=== PATIENT | female | born 1945 | race Caucasian/White ===

== ENCOUNTER 2017-05-27 11:03 | Emergency (ER) | payer MEDICARE ==
[~2017-05-27] VITALS: Ht 152.4 cm; Wt 50.0 kg
[2017-05-27 11:04] VITALS: BP 155/70; PULSE 100; RESP 20; TEMP 99.9; O2SAT 95
[2017-05-27] MEDS ORDERED: PRED10PA2 PO (11:32)
[2017-05-27] MEDS ORDERED: CYCL1TAB29 PO (11:32)
--- NOTE | 2017-05-27 11:33 | PD ---
HPI . Back pain Chief Complaint: Back/ Neck Pain or Injury Time Seen by Provider: 11:12 Travel History International Travel<30 days: No Contact w/Intl Traveler<30days: No Traveled to known affect area: No History of Present Illness HPI This patient presents ambulatory with a chief complaint of low back pain. Onset was a week ago. She states that it radiates to bilateral lower extremities. The pain is constant and is exacerbated by certain movements and by lying flat. She states that she has not taken anything for it prior to presentation. She states that she has a history of spinal stenosis and degenerative disc disease. She further states that she has chronic renal insufficiency. Current pain level is 9/10. PFSH Social History Tobacco Use: No Allergies-Medications (Allergen,Severity, Reaction): Coded Allergies: No Known Allergies (Unverified , 05/27/17) Review of Systems Except as stated in HPI: all other systems reviewed are Neg Musculoskeletal: Positive: Limited ROM, Pain Neurologic: No: Weakness, Focal Abnormalities, Paresthesia, Incontinence, Sensory Disturbance Physical Exam Narrative GENERAL: Patient is awake and alert and in no acute distress. SKIN: Warm and dry with no rashes noted. HEAD: Normocephalic/atraumatic. EYES: Pupils equal. Extraocular movements are intact. NECK: Supple with full range of motion. RESPIRATORY: Respirations are nonlabored. GI: Abdomen is soft with no pulsatile abdominal masses. MUSCULOSKELETAL: Unable to elicit any tenderness to percussion of the lumbar spine, SI joints, groins, greater trochanters. Straight leg raise and leg rolling are negative. NEUROLOGICAL: Patient ambulates with no difficulty. No focal abnormalities noted. PSYCHIATRIC: Appropriate mood and affect. Data Data Last Documented VS Vital Signs Date Time Temp Pulse Resp B/P (MAP) Pulse Ox O2 Delivery O2 Flow Rate FiO2 05/27/17 11:04 99.9 100 20 155/70 (98) 95 Room Air MDM Medical Decision Making Medical Screen Exam Complete: Yes Emergency Medical Condition: Yes Differential Diagnosis Differential diagnosis includes but is not limited to muscular low back pain, DDD, spinal stenosis, epidural abscess, sciatica, kidney infection or stone. Narrative Course This patient presents for treatment of back pain. She has no neurological signs or symptoms. She has no point tenderness. She has no fever. She will be discharged with a prescription for prednisone and Flexeril. Diagnosis Primary Impression: Low back pain Qualified Codes: M54.42 - Lumbago with sciatica, left side; M54.41 - Lumbago with sciatica, right side Patient Instructions: Acute Low Back Pain (DC), General Instructions Med/Other Pt SpecificInfo: Prescription(s) given Scripts Cyclobenzaprine (Flexeril) 10 Mg Tab 10 MG PO TID for Muscle Spasm, #30 TAB 0 Refills Prov: Karlee Cuevas MD 05/27/17 Prednisone (48) 10 mg tab Dose Pack (Prednisone (48) 10 mg tab Dose Pack) 10 Mg Dspk 10 MG PO DIRECTED for Inflammation, #1 DSPK 0 Refills Prov: Karlee Cuevas MD 05/27/17 Disposition: 01 DISCHARGE HOME Condition: Stable Karlee Cuevas MD May 27, 2017 11:33
[2017-05-27] MEDS ORDERED: CARI350T25 (11:43)
[2017-05-27] MEDS ORDERED: SERT25TA83 PO (11:44)
[2017-05-27] MEDS ORDERED: LORA2TAB7 PO (11:44)
[2017-05-27] MEDS ORDERED: TRAM50TA PO (11:47)
[2017-05-27] MEDS ORDERED: ESTRTAB12 (11:47)
[2017-05-27] MEDS ORDERED: FISHCAP4 PO (11:47)
== END 2017-05-27 11:59 | disposition home or self-care (01) ==
LOC: NEPD 11:03
DX: M54.41 Lumbago with sciatica, right side (principal); M54.42 Lumbago with sciatica, left side
CPT/HCPCS: 99284

== ENCOUNTER 2017-06-12 09:29 | Observation (INO) | payer MEDICARE ==
[~2017-06-12] VITALS: Ht 152.4 cm; Wt 52.2 kg
[2017-06-12] VITALS (9 sets, daily range): BP systolic 113–176; BP diastolic 32–81; PULSE 80–94; RESP 17–20; TEMP 98.7–100.6; O2SAT 95–100
[~2017-06-12 09:29] MED LIST: CARI350T25; CYCL1TAB29 PO; ESTRTAB12; FISHCAP4 PO; LORA2TAB7 PO; PRED10PA2 PO; SERT25TA83 PO; TRAM50TA PO
[2017-06-12] MEDS ORDERED: TH BTAB PO (09:47)
[2017-06-12] MEDS ORDERED: SOMA250T PO (09:47)
[2017-06-12 11:10] LABS: AUTOMATED NEUTROPHIL # 14.9 TH/MM3 (1.8-7.7); BASOPHIL % 0.2 % (0.0-2.0); HEMATOCRIT 32.9 % (35.0-46.0); HEMO FLAGS DIFF FINAL; LYMPH % 2.3 % (9.0-44.0); LYMPHOCYTE # 0.4 TH/MM3 (1.0-4.8); MEAN CELL VOLUME 92.8 FL (80.0-100.0); MEAN CORPUSCULAR HEMOGLOBIN 30.7 PG (27.0-34.0); MEAN CORPUSCULAR HGB CONC 33.1 % (32.0-36.0); MONO % 6.7 % (0.0-8.0); NEUT % 90.8 % (16.0-70.0); PLATELET COUNT 201 TH/MM3 (150-450); RED BLOOD COUNT 3.54 MIL/MM3 (4.00-5.30); RED CELL DISTRIBUTION WIDTH 13.5 % (11.6-17.2); WHITE BLOOD COUNT 16.4 TH/MM3 (4.0-11.0)
--- NOTE | 2017-06-12 11:11 | PD ---
HPI Chief Complaint: Pain: Acute or Chronic Time Seen by Provider: 09:38 Travel History International Travel<30 days: No Contact w/Intl Traveler<30days: No Traveled to known affect area: No History of Present Illness HPI This 71-year-old woman presents emergency department complaining of aches all over in her joints, and a painful red swollen left wrist. She states she hasn' t felt well for about a week or so. She complains of diffuse body aches. She had some subjective fevers and chills as well. She had unusual episode last night of some burning epigastric pain this resolved. Starting yesterday and today she also worsening pain in her left wrist with erythema redness swelling and pain with range of motion. She is a history of rheumatoid arthritis for which she takes tramadol. Chest is chronic kidney disease and high cholesterol. No diabetes. No history of previous joint swelling like she has in her left wrist. History Past Medical History Narrative Medical Stage III chronic kidney disease Hyperlipidemia Rheumatoid arthritis Tetanus Vaccination: < 5 Years Influenza Vaccination: No Menopausal: Yes Social History Alcohol Use: No Tobacco Use: No Allergies-Medications (Allergen,Severity, Reaction): Coded Allergies: No Known Allergies (Unverified , 06/12/17) Reported Meds & Prescriptions Reported Meds & Active Scripts Active Prednisone (48) 10 mg tab Dose Pack (Prednisone) 10 Mg Dspk 10 Mg PO DIRECTED Reported Soma (Carisoprodol) 250 Mg Tab 250 Mg PO QID PRN Vitamin B Complex Tablet (Vit B Comp/C/FA/Iron/Vit E) 500-400-18 Tablet 1 Tab PO DAILY Fish Oil + D3 (Fish Oil-Cholecalciferol) 1,200-1,000 Mg-Unit Cap 1 Cap PO DAILY Estroven + Energy Maximum (Lumicity Natural Products) 400 Mcg Tab Tramadol (Tramadol HCl) 50 Mg Tab 50 Mg PO Q6H PRN Lorazepam 2 Mg Tab 2 Mg PO DAILY PRN Sertraline (Sertraline HCl) 25 Mg Tab 25 Mg PO DAILY Review of Systems Except as stated in HPI: all other systems reviewed are Neg Physical Exam Narrative GENERAL: Well-appearing 71-year-old woman, no acute distress. SKIN: Focused skin assessment warm/dry she appears pale.. HEAD: Atraumatic. Normocephalic. EYES: Pupils equal and round. No scleral icterus. No injection or drainage. ENT: No nasal bleeding or discharge. Mucous membranes pink and moist. NECK: Trachea midline. No JVD. CARDIOVASCULAR: Regular rate and rhythm. No murmur appreciated. RESPIRATORY: No accessory muscle use. Clear to auscultation. Breath sounds equal bilaterally. GASTROINTESTINAL: Abdomen soft, non-tender, nondistended. Hepatic and splenic margins not palpable. MUSCULOSKELETAL: No obvious deformities. She has this diffuse swelling of multiple joints in her hands. She has erythema redness and focal swelling of her left wrist with increased pain of range of motion. NEUROLOGICAL: Awake and alert. No obvious cranial nerve deficits. Motor grossly within normal limits. Normal speech. PSYCHIATRIC: Appropriate mood and affect; insight and judgment normal. Data Data Last Documented VS Vital Signs Date Time Temp Pulse Resp B/P (MAP) Pulse Ox O2 Delivery O2 Flow Rate FiO2 06/12/17 15:57 91 20 158/72 (100) 97 Room Air 06/12/17 09:31 99.1 Orders Orders Complete Blood Count With Diff (06/12/17 10:39) Comprehensive Metabolic Panel (06/12/17 10:39) Westergren Sedimentation Rate (06/12/17 10:39) C-Reactive Protein (Crp) (06/12/17 10:39) Iv Access Insert/Monitor (06/12/17 10:39) Lactic Acid Sepsis Protocol (06/12/17 10:39) Blood Culture (06/12/17 10:39) Wrist, Complete ([id number]) (06/12/17 ) Chest, Single Ap (06/12/17 ) Urinalysis - C+S If Indicated (06/12/17 10:39) Aspiration, Wrist (06/12/17 ) Fluid Culture And Gram Stain (06/12/17 13:22) Synovial Fl Cell Count + Diff (06/12/17 13:22) Synovial Fluid Crystals (06/12/17 13:22) Synovial Fluid Glucose (06/12/17 13:22) Synovial Fluid Total Protein (06/12/17 13:22) Us Guided Needle Placement (06/12/17 ) Comprehensive Metabolic Panel (06/13/17 06:00) Free Thyroxine (T4) (06/13/17 06:00) Hemoglobin (Hgb) A1c (06/13/17 06:00) Magnesium (Mg) (06/13/17 06:00) Phosphorus (Po4) (06/13/17 06:00) Thyroid Stimulating Hormone (06/13/17 06:00) Complete Blood Count With Diff (06/13/17 06:00) Blood Culture (06/12/17 17:08) Place In Observation (06/12/17 ) Code Status (06/12/17 17:09) Vital Signs (Adult) Q4H (06/12/17 17:09) Neuro Checks Q4H (06/12/17 17:09) Activity Oob Ad Ofelia (06/12/17 17:09) Special Client Bus Driver / Telemetry .CONTINUOUS (06/12/17 17:09) Intake + Output WILIAN.QSHIFT (06/12/17 17:09) Diet Heart Healthy (06/12/17 Dinner) Diet Renal (06/12/17 Dinner) Sodium Chlor 0.9% 1000 Ml Inj (Ns 1000 M (06/12/17 17:09) Sodium Chloride 0.9% Flush (Ns Flush) (06/12/17 17:15) Sodium Chloride 0.9% Flush (Ns Flush) (06/12/17 21:00) Acetaminophen (Tylenol) (06/12/17 17:15) Ondansetron Inj (Zofran Inj) (06/12/17 17:15) Prochlorperazine Supp (Compazine Supp) (06/12/17 17:15) Urinalysis - C+S If Indicated (06/12/17 17:09) Resp Oxygen Nino C Titrat 1-4 L (06/12/17 ) Pt Request For Service (06/12/17 17:09) Ot Request For Service (06/12/17 17:09) Case Management Consult (06/12/17 17:09) Zolpidem (Ambien) (06/12/17 17:15) Heparin Inj (Heparin Inj) (06/12/17 17:15) Scd Bilateral/Knee High WILIAN.BID (06/12/17 17:09) Joseph Bilateral/Knee High WILIAN.QSHIFT (06/12/17 17:15) Acetaminophen (Tylenol) (06/12/17 17:15) Oxycodone-Acetamin 5-325 Mg (Percocet (06/12/17 17:15) Oxycodone-Acetamin 10-325 Mg (Percocet 1 (06/12/17 17:15) Morphine Inj (Morphine Inj) (06/12/17 17:15) Morphine Inj (Morphine Inj) (06/12/17 17:15) Morphine Inj (Morphine Inj) (06/12/17 17:15) Morphine Inj (Morphine Inj) (06/12/17 17:15) Naloxone Inj (Narcan Inj) (06/12/17 17:15) Docusate Sodium-Senna (Sydnee-Colace) (06/12/17 21:00) Magnesium Hydroxide Liq (Milk Of Magnesi (06/12/17 17:15) Sennosides (Senokot) (06/12/17 17:15) Bisacodyl Supp (Dulcolax Supp) (06/12/17 17:15) Lactulose Liq (Lactulose Liq) (06/12/17 17:15) Piperacil-Tazo 4.5 Gm Premix (Zosyn 4.5 (06/12/17 17:15) Vancomycin Consult Pharmacy (Vancomycin (06/12/17 17:15) Vancomycin Inj (Vancomycin Inj) (06/12/17 17:15) Lorazepam (Ativan) (06/12/17 17:15) Tramadol (Ultram) (06/12/17 17:15) (Nf) Fish Oil-Cholecalciferol (Fish Oil (06/13/17 09:00) (Nf) Sertraline (06/13/17 09:00) (Nf) Vit B Comp/C/Fa/Iron/Vit E (Vitamin (06/13/17 09:00) Methocarbamol (Robaxin) (06/12/17 17:30) Admit Order (Ed Use Only) (06/12/17 ) Labs Laboratory Tests Test 06/12/17 10:50 06/12/17 15:15 White Blood Count 16.4 TH/MM3 Red Blood Count 3.54 MIL/MM3 Hemoglobin 10.9 GM/DL Hematocrit 32.9 % Mean Corpuscular Volume 92.8 FL Mean Corpuscular Hemoglobin 30.7 PG Mean Corpuscular Hemoglobin Concent 33.1 % Red Cell Distribution Width 13.5 % Platelet Count 201 TH/MM3 Mean Platelet Volume 6.7 FL Neutrophils (%) (Auto) 90.8 % Lymphocytes (%) (Auto) 2.3 % Monocytes (%) (Auto) 6.7 % Eosinophils (%) (Auto) 0.0 % Basophils (%) (Auto) 0.2 % Neutrophils # (Auto) 14.9 TH/MM3 Lymphocytes # (Auto) 0.4 TH/MM3 Monocytes # (Auto) 1.1 TH/MM3 Eosinophils # (Auto) 0.0 TH/MM3 Basophils # (Auto) 0.0 TH/MM3 CBC Comment DIFF FINAL Differential Comment Erythrocyte Sedimentation Rate 66 mm/hr Blood Urea Nitrogen 21 MG/DL Creatinine 1.50 MG/DL Random Glucose 119 MG/DL Total Protein 6.9 GM/DL Albumin 3.0 GM/DL Calcium Level 8.6 MG/DL Alkaline Phosphatase 57 U/L Aspartate Amino Transf (AST/SGOT) 12 U/L Alanine Aminotransferase (ALT/SGPT) 24 U/L Total Bilirubin 0.9 MG/DL Sodium Level 131 MEQ/L Potassium Level 4.1 MEQ/L Chloride Level 99 MEQ/L Carbon Dioxide Level 25.3 MEQ/L Anion Gap 7 MEQ/L Estimat Glomerular Filtration Rate 34 ML/MIN Lactic Acid Level 1.1 mmol/L C-Reactive Protein 14.40 MG/DL [facility] Medical Decision Making Medical Screen Exam Complete: Yes Emergency Medical Condition: Yes Interpretation(s) LABS: CC remarkable for mild leukocytosis, mildly elevated ESR, CRP 14.4, CMP unremarkable Lactate 1.1 Differential Diagnosis Arthritis, sepsis, septic arthritis, other Narrative Course Medical decision making INITIAL: This is a 71-year-old woman who presents emergency Department with arthralgias, history of arthritis, monoarticular arthritis in her left wrist. Suspect inflammatory arthritis but difficult to exclude septic arthritis. We' ll check initial labs, x-ray, but will likely need a joint tap. FINAL: Patient with inflamed left wrist. Concern for septic arthritis or think this is more likely inflammatory arthritis. I sent to IR for her. They're concerned because she had a subcutaneous fluid collection was worried this may be a soft tissue infection and recommended against tapping the joint to avoid introducing infection into the joint from a potential soft tissue infection. There were able to aspirate fluid from the soft tissue which was sent to culture. We'll plan on admitting her for IV antibiotics. I spoke with Dr. Serna, who is on-call tomorrow was agreeable to seeing the patient tomorrow for consultation. Diagnosis Primary Impression: Swelling of left hand Admitting Information Admitting Physician Requests: Observation Miguel Beckford MD Jun 12, 2017 11:11
--- NOTE | 2017-06-12 11:21 | RADRPT ---
EXAM DATE/TIME: 06/12/2017 11:10 [facility] COMPARISON: No previous studies available for comparison. INDICATIONS : Short of breath with weakness. MEDICAL HISTORY : None. SURGICAL HISTORY : None. ENCOUNTER: Initial ACUITY: 1 day PAIN SCORE: 0/10 LOCATION: Bilateral chest FINDINGS: A single view of the chest demonstrates the lungs to be symmetrically aerated without evidence of mas s, infiltrate or effusion. The cardiomediastinal contours are unremarkable. Osseous structures are intact. CONCLUSION: No acute disease. Shorty Montoya MD FACR on June 12, 2017 at 11:19 Board Certified Radiologist. This report was verified electronically.
--- NOTE | 2017-06-12 11:22 | RADRPT ---
EXAM DATE/TIME: 06/12/2017 11:11 [facility] COMPARISON: No previous studies available for comparison. INDICATIONS : Pain left wrist with swelling, no known injury. MEDICAL HISTORY : None. SURGICAL HISTORY : None. ENCOUNTER: Initial ACUITY: 2 days PAIN SCORE: 5/10 LOCATION: Left wrist. FINDINGS: Extensive degenerative changes are seen at the first carpal metacarpal joint with some fragmentation suggesting previous trauma. Shows marked degenerative changes. Scaphoid and lunate are intact. Radiocarpal joint is unremarkable. CONCLUSION: Excessive degenerative changes first carpometacarpal joint with probable degenerative instability. Negative for acute fracture. Shorty Montoya MD FACR on June 12, 2017 at 11:19 Board Certified Radiologist. This report was verified electronically.
[2017-06-12 11:34] LABS: ANION GAP 7 MEQ/L (5-15); AST (GOT) 12 U/L (15-37); BICARBONATE 25.3 MEQ/L (21.0-32.0); BLOOD UREA NITROGEN 21 MG/DL (7-18); CHLORIDE 99 MEQ/L (98-107); GLOMERULAR FILTRATION RATE 34 ML/MIN (>89); POTASSIUM 4.1 MEQ/L (3.5-5.1); SODIUM (NA) 131 MEQ/L (136-145)
[2017-06-12 11:37] LABS: ALKALINE PHOSPHATASE 57 U/L (45-117); ALT (GPT) 24 U/L (10-53); TOTAL BILIRUBIN ADULT 0.9 MG/DL (0.2-1.0)
--- NOTE | 2017-06-12 15:24 | PD.RAD ---
Post Procedure Progress Note Pre Procedure Diagnosis: (1) Osteoarthritis of hand, left (2) Rheumatoid arthritis (3) Swelling of left hand Post Procedure Diagnosis: (1) Rheumatoid arthritis (2) Osteoarthritis of hand, left (3) Swelling of left hand Procedure Date: Jun 12, 2017 Supervising Radiologist: Dennis Chau Proceduralist/Assist: Royce Alegre, RT(R), Tee Sumner RT(R) Anesthesia: Local Plan of Activity Patient to Unit: Other (ED) Patient Condition: Good See PACS Report for procedural detail/treatment Drainage Procedure Procedure 1 Imaging Guidance: Ultrasound Procedure Type: Aspiration (Fluid in dorsum of left hand/wrist) Fluid Removal (CCs): 0 Fluid Description: Cloudy, Yellow Dennis Chau MD Jun 12, 2017 15:24
--- NOTE | 2017-06-12 16:09 | RADRPT ---
EXAM DATE/TIME: 06/12/2017 15:34 [facility] COMPARISON: No previous studies available for comparison. INDICATIONS : Patient presents with left wrist pain and swelling in need of aspiration for fluid culture. MEDICAL HISTORY : Stage III chronic kidney disease Hyperlipidemia Rheumatoid arthritis SURGICAL HISTORY : N/a ENCOUNTER: Initial ACUITY: 1 day PAIN SCORE: 9/10 LOCATION: Left Wrist FLUORO TIME: IMAGE SERIES: DEVICE(S): 25 gauge needle was placed into the left wrist joint. RESPONSE: Pre procedure pain level was 9/10 Post procedure pain level was 5/10 FLUID: Total volume of0.5 cc of cloudy yellow fluid was removed. TECH NOTE: Ultrasound was utilized during procedure to aspirate fluid from wrist for culture.BRENDAN JUAN MR#:[id number] :46 Exam Dt/Desc: June 12, 2017ASPIRATION, WRIST, LEFT PROCEDURE : 1. ultrasound guided dorsal left wrist aspiration. The risks, benefits and alternatives to the procedure were explained and verbal and written consent w as obtained. The site was prepped in sterile fashion. Full sterile technique was used, including ca p, mask, sterile gloves and gown and a large sterile sheet. Hand hygiene and 2% chlorhexidine and/or betadine/alcohol prep was utilized per protocol for cutaneous antisepsis. The skin and subcutaneous tissues were infiltrated with local anesthetic solution. Ultrasound evaluation showed a small fluid collection adjacent to the osseous structures of the dorsa l wrist. A small butterfly needle was sonographically guided into the collection. Approximately 0.5 c c of cloudy, yellow fluid was aspirated. The patient tolerated the procedure well and there were no complications. CONCLUSION: Uncomplicated aspiration as above. Dennis Chau MD on June 12, 2017 at 16:06 Board Certified Radiologist. This report was verified electronically.
[2017-06-12] MEDS ORDERED: oxyCODONE/ACETAMINOPHEN 10 MG/325 MG TAB PO PRN (17:15)
[2017-06-12] MEDS ORDERED: ACETAMINOPHEN 325 MG TAB PO PRN ×2 (17:15)
[2017-06-12] MEDS ORDERED: BISACODYL 10 MG SUPP RECTAL PRN (17:15)
[2017-06-12] MEDS ORDERED: NALOXONE HCL 0.4 MG/ML AMP IV PUSH PRN (17:15)
[2017-06-12] MEDS ORDERED: MAGNESIUM HYDROXIDE SUSP 30 ML CUP PO PRN (17:15)
[2017-06-12] MEDS ORDERED: ONDANSETRON HCL 4 MG/2 ML VIAL IVP PRN (17:15)
[2017-06-12] MEDS ORDERED: Vancomycin Consult Pharmacy 1 EA OTHER SCH (17:15)
[2017-06-12] MEDS ORDERED: MORPHINE SULFATE 4 MG/ML INJ IV PUSH PRN ×4 (17:15)
[2017-06-12] MEDS ORDERED: LACTULOSE SYRUP 20 GM/30 ML CUP PO PRN (17:15)
[2017-06-12] MEDS ORDERED: SODIUM CHLORIDE 0.9% FLUSH 10 ML FLUSH IV FLUSH PRN (17:15)
[2017-06-12] MEDS ORDERED: ZOLPIDEM TARTRATE 5 MG TAB PO PRN (17:15)
[2017-06-12] MEDS ORDERED: oxyCODONE/ACETAMINOPHEN 5 MG/325 MG TAB PO PRN (17:15)
[2017-06-12] MEDS ORDERED: traMADol HCL 50 MG TAB PO PRN (17:15)
[2017-06-12] MEDS ORDERED: LORazepam 2 MG TAB PO PRN (17:15)
[2017-06-12] MEDS ORDERED: SENNOSIDES 8.6 MG TAB PO PRN (17:15)
[2017-06-12] MEDS ORDERED: PROCHLORPERAZINE 25 MG SUPP RECTAL PRN (17:15)
--- NOTE | 2017-06-12 17:22 | HHI.HP ---
HPI Service [facility] Hospitalists Primary Care Physician Violeta Moran MD Admission Diagnosis Diagnoses: (1) Rheumatoid arthritis Diagnosis: Principal (2) Osteoarthritis of hand, left Diagnosis: Principal (3) Swelling of left hand Diagnosis: Principal Chief Complaint: Left wrist swelling, pain and redness Travel History International Travel<30 Days: No Contact w/Intl Traveler <30 Da: No Traveled to Known Affected Are: No Sepsis Criteria SIRS Criteria (2 or more): Heart rate over 90, WBC > 01108, < 4000 or > 10% bands Sepsis Criteria (SIRS+source): Infect source susp/known History of Present Illness Written by Clotilde Yanez PA-C acting as scribe for Dr. Estevez on 06/12/17 at 17:04. This is a 71-year-old female with a past medical history significant for rheumatoid arthritis, chronic kidney disease stage III and chronic back pain secondary to degenerative disc disease/spinal stenosis of lumbar spine who presents to [facility] ED with complaints of left wrist pain, swelling and redness 1 day. Patient states she began having pain in the left wrist last night and this morning began to experience increased swelling, warmth and redness running up her left arm. She reports decreased range of motion of the left hand. She denies any other complaints. She denies any recent injury left hand including animal bites or scratches. In the ED, patient was found to have an elevated white count of 16.4. She does admit that she was recently given him a course of prednisone for exacerbation of low back pain which she stopped taking a week ago. While in the ED, patient underwent IR aspiration of the left wrist and synovial studies are pending. She has elevated sedimentation rate of 66 and CRP of 14.4. Review of Systems Constitutional: COMPLAINS OF: Fever, Chills, DENIES: Diaphoretic episodes, Fatigue, Weight gain, Weight loss, Dizziness, Change in appetite Endocrine: DENIES: Abnorml menstrual pattern, Heat/cold intolerance Eyes: DENIES: Blurred vision, Diplopia, Eye inflammation Ears, nose, mouth, throat: DENIES: Tinnitus, Hearing loss, Vertigo, Nasal discharge Respiratory: DENIES: Apneas, Cough, Snoring, Wheezing, Hemoptysis Cardiovascular: DENIES: Chest pain, Palpitations, Syncope, Dyspnea on Exertion Gastrointestinal: DENIES: Abdominal pain, Black stools, Bloody stools, Constipation, Diarrhea Musculoskeletal: COMPLAINS OF: Joint pain, Joint Swelling, DENIES: Muscle aches , Stiffness, Back pain Integumentary: DENIES: Abnormal pigmentation, Pruritus, Rash, Nail changes, Breast masses Hematologic/lymphatic: DENIES: Bruising, Lymphadenopathy Immunologic/allergic: DENIES: Eczema, Urticaria Neurologic: DENIES: Abnormal gait, Headache, Localized weakness, Paresthesias, Seizures, Speech Problems Psychiatric: DENIES: Anxiety, Confusion, Mood changes, Depression, Hallucinations, Agitation, Suicidal Ideation Except as stated in HPI: all other systems reviewed are Neg Past Family Social History Past Medical History Rheumatoid arthritis Chronic kidney disease stage III CLBP 2/2 Degenerative disc disease/spinal stenosis Past Surgical History Bilateral carpal tunnel release Cataract surgery Teeth extraction Right bunionectomy Reported Medications Soma (Carisoprodol) 250 Mg Tab 250 Mg PO QID PRN Vitamin B Complex Tablet (Vit B Comp/C/FA/Iron/Vit E) 500-400-18 Tablet 1 Tab PO DAILY Fish Oil + D3 (Fish Oil-Cholecalciferol) 1,200-1,000 Mg-Unit Cap 1 Cap PO DAILY Estroven + Energy Maximum (Misc Natural Products) 400 Mcg Tab Tramadol (Tramadol HCl) 50 Mg Tab 50 Mg PO Q6H PRN Lorazepam 2 Mg Tab 2 Mg PO DAILY PRN Sertraline (Sertraline HCl) 25 Mg Tab 25 Mg PO DAILY Allergies: Coded Allergies: No Known Allergies (Unverified , 06/12/17) Active Ordered Medications Current Medications Sodium Chloride 1,000 ml @ 100 mls/hr Q10H IV ; Start 06/12/17 at 17:09; Status UNV Sodium Chloride (NS Flush) 2 ml UNSCH PRN IV FLUSH FLUSH AFTER USING IV ACCESS ; Start 06/12/17 at 17:15; Status UNV Sodium Chloride (NS Flush) 2 ml BID IV FLUSH ; Start 06/12/17 at 21:00; Status UNV Acetaminophen (Tylenol) 650 mg Q4H PRN PO TEMP > 100.4; Start 06/12/17 at 17:15 ; Status UNV Ondansetron HCl (Zofran Inj) 4 mg Q6H PRN IVP NAUSEA OR VOMITING; Start at 17:15; Status UNV Prochlorperazine (Compazine Supp) 25 mg Q12H PRN [place] NAUSEA OR VOMITING; Start 06/12/17 at 17:15; Status UNV Zolpidem Tartrate (Ambien) 5 mg HS PRN PO INSOMNIA; Start 06/12/17 at 17:15; Status UNV Heparin Sodium (Porcine) (Heparin Inj) 5,000 units Q12H SQ ; Start 06/12/17 at 17:15; Status UNV Acetaminophen (Tylenol) 650 mg Q6H PRN PO PAIN SCALE 1 TO 2; Start 06/12/17 at 17:15; Status UNV Oxycodone/ Acetaminophen (Percocet 5-325 Mg) 1 tab Q6H PRN PO PAIN SCALE 3 TO 5; Start 06/12/17 at 17:15; Status UNV Oxycodone/ Acetaminophen (Percocet 10-325 Mg) 1 tab Q6H PRN PO PAIN SCALE 6 TO 10; Start 06/12/17 at 17:15; Status UNV Morphine Sulfate (Morphine Inj) 2 mg Q3H PRN IV PUSH Pain 3-5; if unable to take PO; Start 06/12/17 at 17:15; Status UNV Morphine Sulfate (Morphine Inj) 4 mg Q3H PRN IV PUSH Pain 6-10;if unable to take PO; Start 06/12/17 at 17:15; Status UNV Morphine Sulfate (Morphine Inj) 4 mg Q1H PRN IV PUSH PAIN SCALE 7-10 ( INTRACTABLE); Start 06/12/17 at 17:15; Status UNV Morphine Sulfate (Morphine Inj) 4 mg Q3H PRN IV PUSH BREAKTHROUGH PAIN; Start 06/12/17 at 17:15; Status UNV Naloxone HCl (Narcan Inj) 0.4 mg UNSCH PRN IV PUSH SEE LABEL COMMENTS; Start at 17:15; Status UNV Senna/Docusate Sodium (Sydnee-Colace) 1 tab BID PO ; Start 06/12/17 at 21:00; Status UNV Magnesium Hydroxide (Milk Of Magnesia Liq) 30 ml Q12H PRN PO MILD - MODERATE CONSTIPATION; Start 06/12/17 at 17:15; Status UNV Sennosides (Senokot) 17.2 mg Q12H PRN PO MODERATE - SEVERE CONSTIPATION; Start 06/12/17 at 17:15; Status UNV Bisacodyl (Dulcolax Supp) 10 mg DAILY PRN RECTAL SEVERE CONSITIPATION; Start at 17:15; Status UNV Lactulose (Lactulose Liq) 30 ml DAILY PRN PO SEVERE CONSITIPATION; Start at 17:15; Status UNV Piperacillin Sod/ Tazobactam Sod 100 ml @ 200 mls/hr Q6H IV ; Start 06/12/17 at 17:15; Status UNV Pharmacy Profile Note 0 ml @ 0 mls/hr UNSCH OTHER ; Start 06/12/17 at 17:15; Status UNV Vancomycin HCl 1000 mg/Sodium Chloride 250 ml @ 250 mls/hr ONCE ONCE IV ; Start 06/12/17 at 17:15; Stop 06/12/17 at 18:14; Status UNV Lorazepam (Ativan) 2 mg DAILY PRN PO ANXIETY; Start 06/12/17 at 17:15; Status UNV Tramadol HCl (Ultram) 50 mg Q6H PRN PO PAIN; Start 06/12/17 at 17:15; Status UNV Non-Formulary Medication 1 cap DAILY PO ; Start 06/13/17 at 09:00; Status UNV Non-Formulary Medication 25 mg DAILY PO ; Start 06/13/17 at 09:00; Status UNV Non-Formulary Medication 1 tab DAILY PO ; Start 06/13/17 at 09:00; Status UNV Methocarbamol (Robaxin) 1,000 mg Q8HR PRN PO SPASMS; Start 06/12/17 at 17:30; Status UNV Family History Heart disease, hypertension Social History Patient denies any tobacco use, alcohol consumption or illicit drug use. Patient is . Physical Exam Vital Signs Vital Signs Date Time Temp Pulse Resp B/P (MAP) Pulse Ox O2 Delivery O2 Flow Rate FiO2 06/12/17 15:57 91 20 158/72 (100) 97 Room Air 06/12/17 13:30 88 20 141/76 (97) 96 Room Air 06/12/17 11:30 92 18 146/68 (94) 97 Room Air 06/12/17 10:00 80 17 113/56 (75) 97 Room Air 06/12/17 09:52 20 06/12/17 09:31 99.1 92 20 130/58 (82) 95 Room Air Physical Exam GENERAL: This is a well-nourished, well-developed patient, in no apparent distress. Awake and alert. at the bedside. SKIN: Warm and dry. LUE with diffuse edema in the hand, appreciable warmth and erythema extending from the wrist up into the axilla. HEAD: Atraumatic. Normocephalic. No temporal or scalp tenderness. EYES: Pupils equal round and reactive. Extraocular motions intact. No scleral icterus. No injection or drainage. ENT: Nose without bleeding, purulent drainage or septal hematoma. Throat without erythema, tonsillar hypertrophy or exudate. Uvula midline. Airway patent. NECK: Trachea midline. No JVD or lymphadenopathy. Supple, nontender, no meningeal signs. CARDIOVASCULAR: Regular rate and rhythm without murmurs, gallops, or rubs. S1- S2 no S3 or S4 no heave or thrill RESPIRATORY: Clear to auscultation. Breath sounds equal bilaterally. No wheezes , rales, or rhonchi. GASTROINTESTINAL: Abdomen soft, non-tender, nondistended. No hepato-splenomegaly , or palpable masses. No guarding. MUSCULOSKELETAL: Diffuse edema, warmth and tenderness left hand/wrist. LUE limited range of motion. Left wrist and hand very much decreased range of motion. NEUROLOGICAL: Awake and alert. Able to move all extremities except with decreased range of motion left hand as stated above. Normal speech. Insight and judgment good mood and behavior appropriate Laboratory Laboratory Tests Test 06/12/17 10:50 06/12/17 15:15 White Blood Count 16.4 Red Blood Count 3.54 Hemoglobin 10.9 Hematocrit 32.9 Mean Corpuscular Volume 92.8 Mean Corpuscular Hemoglobin 30.7 Mean Corpuscular Hemoglobin Concent 33.1 Red Cell Distribution Width 13.5 Platelet Count 201 Mean Platelet Volume 6.7 Neutrophils (%) (Auto) 90.8 Lymphocytes (%) (Auto) 2.3 Monocytes (%) (Auto) 6.7 Eosinophils (%) (Auto) 0.0 Basophils (%) (Auto) 0.2 Neutrophils # (Auto) 14.9 Lymphocytes # (Auto) 0.4 Monocytes # (Auto) 1.1 Eosinophils # (Auto) 0.0 Basophils # (Auto) 0.0 CBC Comment DIFF FINAL Differential Comment Erythrocyte Sedimentation Rate 66 Blood Urea Nitrogen 21 Creatinine 1.50 Random Glucose 119 Total Protein 6.9 Albumin 3.0 Calcium Level 8.6 Alkaline Phosphatase 57 Aspartate Amino Transf (AST/SGOT) 12 Alanine Aminotransferase (ALT/SGPT) 24 Total Bilirubin 0.9 Sodium Level 131 Potassium Level 4.1 Chloride Level 99 Carbon Dioxide Level 25.3 Anion Gap 7 Estimat Glomerular Filtration Rate 34 Lactic Acid Level 1.1 C-Reactive Protein 14.40 Date/Time Source Procedure Growth Status 06/12/17 10:50 Blood Peripheral Aerobic Blood Culture Pending Received 06/12/17 10:50 Blood Peripheral Anaerobic Blood Culture Pending Received 06/12/17 15:15 Fluid Synovial Fluid Gram Stain Pending Received 06/12/17 15:15 Fluid Synovial Fluid Body Fluid Culture Pending Received Result Diagram: 06/12/17 1050 06/12/17 1050 Imaging Last Impressions Wrist X-Ray 06/12/17 0000 Signed Impressions: Service Date/Time: Monday, June 12, 2017 11:11 - CONCLUSION: Excessive degenerative changes first carpometacarpal joint with probable degenerative instability. Negative for acute fracture. Shorty Montoya MD FACR Chest X-Ray 06/12/17 0000 Signed Impressions: Service Date/Time: Monday, June 12, 2017 11:10 - CONCLUSION: No acute disease. Shorty Montoya MD FACR Aspiration 06/12/17 0000 Signed Impressions: Service Date/Time: Monday, June 12, 2017 15:34 - CONCLUSION: Uncomplicated aspiration as above. Dennis Chau MD Caprini VTE Risk Assessment Caprini VTE Risk Assessment: Mod/High Risk (score >= 2) Caprini Risk Assessment Model Point Value = 1 Point Value = 2 Point Value = 3 Point Value = 5 Age 41-60 Minor surgery BMI > 25 kg/m2 Swollen legs Varicose veins or History of unexplained or recurrent spontaneous Oral contraceptives or hormone replacement Sepsis (< 1 month) Serious lung disease, including pneumonia (< 1 month) Abnormal pulmonary function Acute myocardial infarction Congestive heart failure (< 1 month) History of inflammatory bowel disease Medical patient at bed rest Age 61-74 Arthroscopic surgery Major open surgery (> 45 min) Laparoscopic surgery (> 45 min) Malignancy Confined to bed (> 72 hours) Immobilizing plaster cast Central venous access Age >= 75 History of VTE Family history of VTE Factor V Leiden Prothrombin [id number] Lupus anticoagulant Anticardiolipin antibodies Elevated serum homocysteine Heparin-induced thrombocytopenia Other congenital or acquired thrombophilia Stroke (< 1 month) Elective arthroplasty Hip, pelvis, or leg fracture Acute spinal cord injury (< 1 month) Prophylaxis Regimen Total Risk Factor Score Risk Level Prophylaxis Regimen 0-1 Low Early ambulation 2 Moderate Order ONE of the following: *Sequential Compression Device (SCD) *Heparin 5000 units SQ BID 3-4 Higher Order ONE of the following medications: *Heparin 5000 units SQ TID *Enoxaparin/Lovenox 40 mg SQ daily (WT < 150 kg, CrCl > 30 mL/min) *Enoxaparin/Lovenox 30 mg SQ daily (WT < 150 kg, CrCl > 10-29 mL/min) *Enoxaparin/Lovenox 30 mg SQ BID (WT < 150 kg, CrCl > 30 mL/min) AND/OR *Sequential Compression Device (SCD) 5 or more Highest Order ONE of the following medications: *Heparin 5000 units SQ TID (Preferred with Epidurals) *Enoxaparin/Lovenox 40 mg SQ daily (WT < 150 kg, CrCl > 30 mL/min) *Enoxaparin/Lovenox 30 mg SQ daily (WT < 150 kg, CrCl > 10-29 mL/min) *Enoxaparin/Lovenox 30 mg SQ BID (WT < 150 kg, CrCl > 30 mL/min) AND *Sequential Compression Device (SCD) Assessment and Plan Assessment and Plan 71-year-old female with a past medical history significant for rheumatoid arthritis, chronic kidney disease stage III and chronic back pain secondary to degenerative disc disease/spinal stenosis of lumbar spine who presents to [facility] ED with complaints of left wrist pain, swelling and redness 1 day. Left wrist/UE cellulitis Sepsis/patient meets sepsis criteria with elevated heart rate and white count 16.4 and known source of infection of left UE cellulitis - Left wrist x-ray personally reviewed revealing excessive degenerative changes in the first carpometacarpal joint with probable degenerative instability - ESR 66, CRP 14.4 - Lactic acid 1.1 - IV vancomycin and Zosyn - Follow up on synovial fluid studies - Obtain blood cultures - Consult infectious disease - Consult hand in the morning due to lack of coverage today - Pain management - PT/OT eval/tx Leukocytosis - Secondary to above. May also be a component of steroid reaction. - IVF - Monitor CBC Hyponatremia - IV fluid - Repeat BMP in a.m. Chronic kidney disease stage III - Creatinine 1.50. Unknown baseline. - elevated BUN ?dehydration - IVF - Avoid nephrotoxic agent - Monitor kidney function Rheumatoid arthritis Chronic low back pain 2/2 DDD/spinal stenosis - continue Ultram as needed - Robaxin as needed DVT prophylaxis - Bilateral SCD/JACQUELIN hose - Heparin sq Code Status Full code Discussed Condition With ED physician, patient, Clotilde Yanez Jun 12, 2017 17:22 Shorty Estevez DO Jun 12, 2017 17:32
[2017-06-12] MEDS ORDERED: METHOCARBAMOL 500 MG TAB PO PRN (17:30)
[2017-06-12] MEDS ORDERED: PILL SPLITTER OTHER PRN (18:00)
[2017-06-12] MEDS ORDERED: VANCOMYCIN INJ 1,000 MG in SODIUM CHLOR 0.9% 250 ML INJ 250 ML IV ONE (18:00)
[2017-06-12] MEDS: SODIUM CHLOR 0.9% 1000 ML INJ 1,000 ML IV SCH (18:53)
[2017-06-12 19:36] LABS: WBC, SYNOVIAL FLUID 137000 /MM3 (0-200)
[2017-06-12 19:37] LABS: SYNOVIAL FLUID CRYSTALS POS - CALCIUM PYRO
[2017-06-12] MEDS: HEPARIN SODIUM - SQ 10,000 UNITS/ML VIAL SQ SCH (20:01)
[2017-06-12] MEDS: DOCUSATE SODIUM 50 MG/SENNA 8.6 MG TAB PO SCH (20:01)
[2017-06-12] MEDS: FAMOTIDINE 20 MG TAB PO SCH (20:01)
[2017-06-12] MEDS: SODIUM CHLORIDE 0.9% FLUSH 10 ML FLUSH IV FLUSH SCH (20:02)
[2017-06-13] VITALS (7 sets, daily range): BP systolic 115–132; BP diastolic 59–73; PULSE 63–95; RESP 17–18; TEMP 98–98.7; O2SAT 95–100
[2017-06-13] MEDS: SODIUM CHLOR 0.9% 1000 ML INJ 1,000 ML IV SCH ×3 (00:02→22:08)
[2017-06-13] MEDS: PIPERACIL-TAZO 4.5 GM PREMIX 100 ML IV SCH ×3 (05:05→12:32)
[2017-06-13 07:29] LABS: BASOPHIL % 0.3 % (0.0-2.0); EOSINOPHIL % 0.1 % (0.0-4.0); HEMATOCRIT 28.7 % (35.0-46.0); HEMO FLAGS DIFF FINAL; LYMPH % 6.9 % (9.0-44.0); LYMPHOCYTE # 0.8 TH/MM3 (1.0-4.8); MEAN CELL VOLUME 92.1 FL (80.0-100.0); MEAN CORPUSCULAR HEMOGLOBIN 31.1 PG (27.0-34.0); MEAN CORPUSCULAR HGB CONC 33.8 % (32.0-36.0); MONO % 8.3 % (0.0-8.0); NEUT % 84.4 % (16.0-70.0); PLATELET COUNT 186 TH/MM3 (150-450); RED BLOOD COUNT 3.11 MIL/MM3 (4.00-5.30); RED CELL DISTRIBUTION WIDTH 13.3 % (11.6-17.2); WHITE BLOOD COUNT 11.8 TH/MM3 (4.0-11.0)
[2017-06-13 08:07] LABS: ALT (GPT) 18 U/L (10-53); ANION GAP 8 MEQ/L (5-15); AST (GOT) 9 U/L (15-37); BICARBONATE 24.3 MEQ/L (21.0-32.0); BLOOD UREA NITROGEN 18 MG/DL (7-18); CHLORIDE 103 MEQ/L (98-107); GLOMERULAR FILTRATION RATE 40 ML/MIN (>89); MAGNESIUM 2.1 MG/DL (1.5-2.5); SODIUM (NA) 135 MEQ/L (136-145)
[2017-06-13] MEDS: SODIUM CHLORIDE 0.9% FLUSH 10 ML FLUSH IV FLUSH SCH ×2 (08:07→21:01)
[2017-06-13] MEDS: HEPARIN SODIUM - SQ 10,000 UNITS/ML VIAL SQ SCH ×2 (08:08→20:59)
[2017-06-13] MEDS: SERTRALINE HCL 50 MG TAB PO SCH (08:08)
[2017-06-13] MEDS: FAMOTIDINE 20 MG TAB PO SCH ×2 (08:08→21:00)
[2017-06-13] MEDS: DOCUSATE SODIUM 50 MG/SENNA 8.6 MG TAB PO SCH ×2 (08:08→21:00)
[2017-06-13 08:11] LABS: ALKALINE PHOSPHATASE 53 U/L (45-117); FREE T4 0.88 NG/DL (0.76-1.46); TOTAL BILIRUBIN ADULT 1.2 MG/DL (0.2-1.0)
[2017-06-13] MEDS ORDERED: NON-FORMULARY DRUG (Fish Oil-Cholecalciferol (Fish Oil + D3) 1 CAP) PO SCH (09:00)
[2017-06-13] MEDS ORDERED: VIT B COMP PO SCH (09:00)
[2017-06-13] MEDS ORDERED: IRON PO SCH (09:00)
[2017-06-13] MEDS ORDERED: VIT E PO SCH (09:00)
[2017-06-13] MEDS ORDERED: [UNRECOGNIZED DRUG - OTHER] PO SCH (09:00)
--- NOTE | 2017-06-13 09:14 | HHI.PR ---
Subjective Remarks Follow up for left wrist septic joint. The patient reports some improvement of her left wrist erythema/edema, however symptoms still persist. She has increased ROM of the left wrist and hand. She had mild fever overnight, Tmax 100.6, now afebrile this morning. She is still unable to recall any wound or injury to the hand/wrist. She has no other medical complaints at this time. Objective Vitals Vital Signs Date Time Temp Pulse Resp B/P (MAP) Pulse Ox O2 Delivery O2 Flow Rate FiO2 06/13/17 08:05 98.0 74 18 115/67 (83) 100 06/13/17 03:51 98.5 74 18 132/70 (90) 100 06/12/17 23:41 98.7 90 19 125/62 (83) 100 06/12/17 20:30 89 06/12/17 19:51 100.6 94 18 117/57 (77) 100 06/12/17 19:15 16 06/12/17 19:09 06/12/17 18:00 89 20 176/81 (112) 98 Room Air 06/12/17 15:57 91 20 158/72 (100) 97 Room Air 06/12/17 13:30 88 20 141/76 (97) 96 Room Air 06/12/17 11:30 92 18 146/68 (94) 97 Room Air 06/12/17 10:00 80 17 113/56 (75) 97 Room Air 06/12/17 09:52 20 06/12/17 09:31 99.1 92 20 130/58 (82) 95 Room Air I/O 06/12/17 06/12/17 06/12/17 06/13/17 06/13/17 06/13/17 07:00 15:00 23:00 07:00 15:00 23:00 # Voids 1 Result Diagram: 06/13/17 0650 06/13/17 0650 Imaging Last Impressions Wrist X-Ray 06/12/17 0000 Signed Impressions: Service Date/Time: Monday, June 12, 2017 11:11 - CONCLUSION: Excessive degenerative changes first carpometacarpal joint with probable degenerative instability. Negative for acute fracture. Shorty Montoya MD FACR Chest X-Ray 06/12/17 0000 Signed Impressions: Service Date/Time: Monday, June 12, 2017 11:10 - CONCLUSION: No acute disease. Shorty Montoya MD FACR Aspiration 06/12/17 0000 Signed Impressions: Service Date/Time: Monday, June 12, 2017 15:34 - CONCLUSION: Uncomplicated aspiration as above. Dennis Chau MD Objective Remarks GENERAL: Well-nourished, well-developed pleasant elderly female patient in [facility]. SKIN: Warm and dry. No rash. HEENT: Normocephalic. Atraumatic.Pupils equal and round. Mucous membranes pink and moist. CARDIOVASCULAR: Regular rate and rhythm. S1, S2 noted. No murmur appreciated. RESPIRATORY: No accessory muscle use. Clear to auscultation. Breath sounds equal bilaterally. GASTROINTESTINAL: Abdomen soft, non-tender, nondistended. Normoactive bowel sounds x4. MUSCULOSKELETAL: No obvious deformities. Extremities without clubbing, cyanosis , or edema. Left dorsal hand and wrist with diffuse erythema, edema, warmth; with decreased ROM. NEUROLOGICAL: Awake and alert. No obvious cranial nerve deficits. Motor grossly within normal limits. Normal speech. PSYCHIATRIC: Appropriate mood and affect; insight and judgment normal. Medications and IVs Current Medications Medications (Trade) Dose Ordered Sig/Lou Route Start Time Stop Time Status Last Admin Sodium Chloride 1,000 ml @ 100 mls/hr Q10H IV 06/12/17 17:09 06/13/17 00:02 (NS Flush) 2 ml UNSCH PRN IV FLUSH 06/12/17 17:15 06/12/17 18:50 (NS Flush) 2 ml BID IV FLUSH 06/12/17 21:00 (Tylenol) 650 mg Q4H PRN PO 06/12/17 17:15 06/12/17 20:01 (Zofran Inj) 4 mg Q6H PRN IVP 06/12/17 17:15 06/12/17 18:49 (Compazine Supp) 25 mg Q12H PRN RECTAL 06/12/17 17:15 (Ambien) 5 mg HS PRN PO 06/12/17 17:15 06/12/17 20:01 (Heparin Inj) 5,000 units Q12H SQ 06/12/17 21:00 06/13/17 08:08 (Tylenol) 650 mg Q6H PRN PO 06/12/17 17:15 (Percocet 5-325 Mg) 1 tab Q6H PRN PO 06/12/17 17:15 (Percocet 10-325 Mg) 1 tab Q6H PRN PO 06/12/17 17:15 (Morphine Inj) 2 mg Q3H PRN IV PUSH 06/12/17 17:15 06/12/17 18:51 (Morphine Inj) 4 mg Q3H PRN IV PUSH 06/12/17 17:15 (Morphine Inj) 4 mg Q1H PRN IV PUSH 06/12/17 17:15 (Morphine Inj) 4 mg Q3H PRN IV PUSH 06/12/17 17:15 (Narcan Inj) 0.4 mg UNSCH PRN IV PUSH 06/12/17 17:15 (Sydnee-Colace) 1 tab BID PO 06/12/17 21:00 06/13/17 08:08 (Milk Of Magnesia Liq) 30 ml Q12H PRN PO 06/12/17 17:15 (Senokot) 17.2 mg Q12H PRN PO 06/12/17 17:15 (Dulcolax Supp) 10 mg DAILY PRN RECTAL 06/12/17 17:15 (Lactulose Liq) 30 ml DAILY PRN PO 06/12/17 17:15 Piperacillin Sod/ Tazobactam Sod 100 ml @ 200 mls/hr Q6H IV 06/12/17 18:00 06/13/17 05:05 Pharmacy Profile Note 0 ml @ 0 mls/hr UNSCH OTHER 06/12/17 17:15 (Ativan) 2 mg DAILY PRN PO 06/12/17 17:15 06/12/17 20:01 (Zoloft) 25 mg DAILY PO 06/13/17 09:00 06/13/17 08:08 (Robaxin) 1,000 mg Q8H PRN PO 06/12/17 17:30 (Pepcid) 10 mg BID PO 06/12/17 21:00 06/13/17 08:08 (Pill Splitter) 1 ea UNSCH PRN OTHER 06/12/17 18:00 A/P Problem List: (1) Rheumatoid arthritis ICD Code: M06.9 - Rheumatoid arthritis, unspecified (2) Osteoarthritis of hand, left ICD Code: M19.042 - Primary osteoarthritis, left hand (3) Swelling of left hand ICD Code: M79.89 - Other specified soft tissue disorders Assessment and Plan 71-year-old female with a past medical history significant for rheumatoid arthritis, chronic kidney disease stage III and chronic back pain secondary to degenerative disc disease/spinal stenosis of lumbar spine who presents to [facility] ED with complaints of left wrist pain, swelling and redness 1 day. Sepsis with Left Wrist Cellulitis/Septic Joint: meets sepsis criteria with leukocytosis WBC 16.4K, tachycardia HR 94, fever Tmax 100.6, and source-left wrist septic joint - Left wrist x-ray reviewed, shows excessive degenerative changes in the first carpometacarpal joint with probable degenerative instability - S/p joint aspiration by IR, revealed significantly elevated WBC 137K, and positive for calcium pyrophosphate crystals; culture pending - Labs reviewed, ESR 66, CRP 14.4, Lactic acid 1.1 - Continue antibiotics with IV vancomycin and Zosyn - Monitor blood cultures - Consult infectious disease - Consult hand surgery - Pain management with Percocet prn and IV morphine prn breakthrough pain - PT/OT eval/tx - Keep NPO today until evaluated by hand surgery Leukocytosis: Secondary to above. - Given IVF - Monitor CBC, improving Hyponatremia: Na 131 - Given IV fluid - Repeat BMP shows improvement with Na 135, continue to monitor Chronic kidney disease stage III - Creatinine 1.50. Unknown baseline. - elevated BUN ?dehydration - Given IVF - Avoid nephrotoxic agent - Monitor kidney function, improved today, Cr 1.31 Rheumatoid arthritis, Chronic low back pain with DDD/spinal stenosis - continue pain medication as needed - Robaxin as needed DVT prophylaxis: scds, heparin Sabina Leal PA-C Jun 13, 2017 9:14 am
[2017-06-13 11:42] LABS: HEMOGLOBIN A1a 1.3 %; HEMOGLOBIN A1b 0.9 %; HEMOGLOBIN Ao 83.5 %; HEMOGLOBIN F 1.3 %; HEMOGLOBIN LA1C 2.3 %; HEMOGLOBIN P3 4.2 %
--- NOTE | 2017-06-13 13:10 | PD.ID.CON ---
History of Present Illness Service ID Consult Requested By Dr Estevez Reason for Consult L wrist septic joint Primary Care Physician Violeta Moran MD Diagnoses: History of Present Illness The patient is a 72 yr old right hand dominant female with h/o rhematoid arthritis, no DMARDs tx developed developed redness and swelling on her left hand for few days She had an interventional radiology guided aspiration of fluid collection in her hand which revealed many WBCs (137K with neutrophils predominance) and no organisms. She did have crystals (pyrophosphates). The patient notes that her lefthand, wrist, and arm are much better then it was yesterday. She has one time low grade fever on presentation (100.4) and her blood clx are so far negaive Her syovial fluid clx is negative @ 24 hrs She has no abx use prior to presentation No fever, chills, nightsweats Review of Systems Musculoskeletal: COMPLAINS OF: Joint pain Except as stated in HPI: all other systems reviewed are Neg Past Family Social History Allergies: Coded Allergies: No Known Allergies (Unverified , 06/12/17) Past Medical History 1. Rheumatoid arthritis 2. Chronic kidney disease stage 3. 3. Chronic back pain. 4. Degenerative disc disease. 5. Spinal stenosis. Past Surgical History 1. Bilateral carpal tunnel release. 2. Cataract surgery. 3. Teeth extraction. 4. Right bunionectomy. Active Ordered Medications Medications where reviewed in EMR Antibiotics Include: vancomycin zosyn Family History reviewwd non contributory Social History No Tobacco. No ETOH. No Illicit Drugs. Physical Exam Vital Signs Vital Signs Date Time Temp Pulse Resp B/P (MAP) Pulse Ox O2 Delivery O2 Flow Rate FiO2 06/13/17 11:47 98.0 73 17 118/59 (78) 95 06/13/17 08:05 80 06/13/17 08:05 98.0 74 18 115/67 (83) 100 06/13/17 03:51 98.5 74 18 132/70 (90) 100 06/12/17 23:41 98.7 90 19 125/62 (83) 100 06/12/17 20:30 89 06/12/17 19:51 100.6 94 18 117/57 (77) 100 06/12/17 19:15 16 06/12/17 19:09 06/12/17 18:00 89 20 176/81 (112) 98 Room Air 06/12/17 15:57 91 20 158/72 (100) 97 Room Air 06/12/17 13:30 88 20 141/76 (97) 96 Room Air Physical Exam CONSTITUTIONAL/GENERAL: This is an adequately nourished patient, in no apparent distress. TUBES/LINES/DRAINS: SKIN: No jaundice, rashes, or lesions. Skin temperature appropriate. Not diaphoretic. HEAD: Atraumatic. Normocephalic. EYES: Pupils equal and round and reactive. Extraocular motions intact. No scleral icterus. No injection or drainage. Fundi not examined. ENT: Hearing grossly normal. Nose without bleeding or purulent drainage. Throat without visible erythema, exudates, masses, or lesions. NECK: Trachea midline. Supple, nontender. No palpable thyroid enlargement or nodularity. CARDIOVASCULAR: Regular rate and rhythm without murmurs, gallops, or rubs. No JVD. Peripheral pulses symmetric. RESPIRATORY/CHEST: Symmetric, unlabored respirations. Clear to auscultation. No wheezes, rales, or rhonchi. GASTROINTESTINAL: Abdomen soft, non-tender, nondistended. No + L wrist mild edema and erythema No cellulitic changes ROM is practicallly WNL + Hands/feet with small joint deformitis No mottling or clubbing. LYMPHATICS: No palpable cervical or supraclavicular adenopathy. NEUROLOGICAL: Awake and alert. Motor and sensory grossly within normal limits. Follows commands. Clear speech. Moves all extremities. PSYCHIATRIC: No obvious anxiety/depression. no apparent hallucinations or other psychotic thought process. Laboratory Laboratory Tests Test 06/12/17 15:15 06/13/17 06:50 Synovial Fluid Color WHITE Synovial Fluid Appearance MARKED Synovial Fluid WBC [id number] Synovial Fluid RBC 900 Synovial Fluid Neutrophils 82 Synovial Fluid Lymphocytes 3 Synovial Fluid Monocytes 14 Synovial Fluid Crystals POS - CALCIUM PYRO White Blood Count 11.8 Red Blood Count 3.11 Hemoglobin 9.7 Hematocrit 28.7 Mean Corpuscular Volume 92.1 Mean Corpuscular Hemoglobin 31.1 Mean Corpuscular Hemoglobin Concent 33.8 Red Cell Distribution Width 13.3 Platelet Count 186 Mean Platelet Volume 7.2 Neutrophils (%) (Auto) 84.4 Lymphocytes (%) (Auto) 6.9 Monocytes (%) (Auto) 8.3 Eosinophils (%) (Auto) 0.1 Basophils (%) (Auto) 0.3 Neutrophils # (Auto) 10.0 Lymphocytes # (Auto) 0.8 Monocytes # (Auto) 1.0 Eosinophils # (Auto) 0.0 Basophils # (Auto) 0.0 CBC Comment DIFF FINAL Differential Comment Blood Urea Nitrogen 18 Creatinine 1.31 Random Glucose 107 Total Protein 6.0 Albumin 2.2 Calcium Level 8.4 Phosphorus Level 2.7 Magnesium Level 2.1 Alkaline Phosphatase 53 Aspartate Amino Transf (AST/SGOT) 9 Alanine Aminotransferase (ALT/SGPT) 18 Total Bilirubin 1.2 Sodium Level 135 Potassium Level 4.0 Chloride Level 103 Carbon Dioxide Level 24.3 Anion Gap 8 Estimat Glomerular Filtration Rate 40 Hemoglobin A1c 6.0 Free Thyroxine 0.88 Thyroid Stimulating Hormone 3rd Gen 0.862 Date/Time Source Procedure Growth Status 06/12/17 10:50 Blood Peripheral Aerobic Blood Culture - Preliminary NO GROWTH IN 1 DAY Resulted 06/12/17 10:50 Blood Peripheral Anaerobic Blood Culture - Preliminary NO GROWTH IN 1 DAY Resulted 06/12/17 15:15 Fluid Synovial Fluid Gram Stain - Final Resulted 06/12/17 15:15 Fluid Synovial Fluid Body Fluid Culture Pending Resulted Result Diagram: 06/13/17 0650 06/13/17 0650 Imaging Last Impressions Wrist X-Ray 06/12/17 0000 Signed Impressions: Service Date/Time: Monday, June 12, 2017 11:11 - CONCLUSION: Excessive degenerative changes first carpometacarpal joint with probable degenerative instability. Negative for acute fracture. Shorty Montoya MD FACR Chest X-Ray 06/12/17 0000 Signed Impressions: Service Date/Time: Monday, June 12, 2017 11:10 - CONCLUSION: No acute disease. Shorty Montoya MD FACR Aspiration 06/12/17 0000 Signed Impressions: Service Date/Time: Monday, June 12, 2017 15:34 - CONCLUSION: Uncomplicated aspiration as above. Dennis Chau MD Assessment and Plan Assessment and Plan Pseudogout involving L wrist R/o septic arthritis L wrist -suspected based on synovial fluid analysis, however no growth sos far REc's; cont abx for now Expect to d/c abx if both synovial and blood clx remain negative Alana Lowe MD Jun 13, 2017 13:10
--- NOTE | 2017-06-13 14:41 | MB ---
cc: SOHEILA VÁSQUEZ III, M.D. DATE OF CONSULTATION: 06/13/2017 REASON FOR CONSULTATION: The patient is very friendly right hand dominant 72-year-old female from [place], she states 2 days ago she developed redness and swelling on her left hand in the first web space which worsened and then she came in the emergency room yesterday was consulted for suspected septic joint. The patient had an interventional radiology guided aspiration of fluid collection in her hand which revealed many WBCs and no organisms. The patient notes that her left hand, wrist, and arm are much better then it was yesterday. PAST MEDICAL HISTORY 1. Rheumatoid arthritis 2. Chronic kidney disease stage 3. 3. Chronic back pain. 4. Degenerative disc disease. 5. Spinal stenosis. PAST SURGICAL HISTORY 1. Bilateral carpal tunnel release. 2. Cataract surgery. 3. Teeth extraction. 4. Right bunionectomy. MEDICATIONS: medications at home; 1. Soma 2. Vitamin B 3. Fish oil 4. B3. 5. Estroven 6. Tramadol 7. Lorazepam 8. Sertraline. ALLERGIES NO KNOWN DRUG ALLERGIES. HOSPITAL MEDICATIONS: 1. In the hospital she is also on vancomycin 2. Subcu heparin 3. Pepcid 4. Pericolace. 5. Zosyn 6. Ambien 7. Ativan ALLERGIES NO KNOWN DRUG ALLERGIES. FAMILY HISTORY: The family history is noncontributory or pertinent. RADIOLOGIC: The x-rays were performed and reviewed; she had a wrist x-ray yesterday which revealed extensive degenerative changes first CMC joint with probable degenerative stability negative for acute fracture. Aspiration was performed also. LABORATORY STUDIES: The laboratory studies revealed initial white blood cell count 16.4 thousand which is down to 11.8 thousand today. REVIEW OF SYSTEMS The patient is not complaining of having blurry or double vision. She is not complaining of any cough, wheezing, shortness breath. She is not complaining of chest pain or palpitations. She is not complaining of any nausea, vomiting or abdominal pain, she is not complaining of any burning, frequency or urgency with urination. She is not complaining of any spine or active back pain. She is not complaining of any night sweats, fevers or chills. Not complaining of any anxiety, depression or suicidal ideations. PHYSICAL EXAMINATION IN GENERAL: The patient is well-developed and nourished in no apparent distress lying comfortably in her bed. VITAL SIGNS: Temperature is 98.0, 118/59, heart rate 73, respiratory 70, pulse ox 95%. Patient is awake, alert, oriented x3, very pleasant, sitting comfortably in her bed with by side. DIRECTED EXAMINATION: Examination of the left upper extremity reveals that the area of mild boggy erythema in the dorsal aspect of the hand and forearm and the volar aspect of the forearm and slight amount of palm. She has no real discomfort actively or passively, moving her hand and her wrist. She is able to flex, extend, pronate and supinate. There is no epitrochlear or axillary adenopathy. There is no obvious streaking. The erythema is very light. She is able to move her elbow freely, capillary refill is less than 2 seconds in all fingertips. She is able to move all her fingers, she has a very mild edema in her fingers and the hands. There is no evidence of any wounds anywhere. There are no areas of any fluctuance at time. Palpation of the joint was nearly normal. There is no fullness and there is no focal swelling or redness around the wrist joint. Passive range of motion of the joint is not uncomfortable to the patient. IMPRESSION: Cellulitis left upper extremity. PLAN The recommendation is for IV pole and sling elevation strict of the left hand and wrist forearm which I have ordered, also continuing IV antibiotics and follow up on cultures. Gram stain is in the computer and was non revealing. MD YANG Mann III/lisa /1:46 PM /2:15 PM
[2017-06-13] MEDS: PIPERACIL-TAZO 3.375 GM PREMIX 50 ML IV SCH (17:53)
[2017-06-13] MEDS ORDERED: VANCOMYCIN 1,000 MG/NS 250 ML IV SCH ×2 (20:00)
[2017-06-14] MEDS: PIPERACIL-TAZO 3.375 GM PREMIX 50 ML IV SCH ×2 (00:25→05:46)
[2017-06-14 01:25] VITALS: BP 127/59; PULSE 89; RESP 18; TEMP 98.7; O2SAT 97
--- NOTE | 2017-06-14 08:54 | HHI.PR ---
Subjective Remarks Follow up for left wrist cellulitis vs pseudogout vs septic joint. The patient reports continued erythema/edema of the left wrist with some extension of erythema up the forearm. She also complains of some soreness at the left axilla. Denies fevers/chills. She has also noticed some erythema at the right hand overnight. She has decreased range of motion of bilateral hands and wrists. She denies any chest pain, palpitations, shortness of breath, or abdominal complaints. Objective Vitals Vital Signs Date Time Temp Pulse Resp B/P (MAP) Pulse Ox O2 Delivery O2 Flow Rate FiO2 06/14/17 01:25 98.7 89 18 127/59 (81) 97 06/13/17 19:50 100 06/13/17 19:46 98.7 72 18 132/59 (83) 97 06/13/17 16:00 89 06/13/17 16:00 98.6 76 17 130/73 (92) 98 06/13/17 12:10 95 06/13/17 11:47 98.0 73 17 118/59 (78) 95 I/O 06/13/17 06/13/17 06/13/17 06/14/17 06/14/17 06/14/17 07:00 15:00 23:00 07:00 15:00 23:00 Intake Total 1050 ml 50 ml Balance 1050 ml 50 ml Intake IV Total 1050 ml 50 ml # Voids 1 2 Result Diagram: 06/13/17 0650 06/13/17 0650 Imaging Last Impressions Wrist X-Ray 06/12/17 0000 Signed Impressions: Service Date/Time: Monday, June 12, 2017 11:11 - CONCLUSION: Excessive degenerative changes first carpometacarpal joint with probable degenerative instability. Negative for acute fracture. Shorty Montoya MD FACR Chest X-Ray 06/12/17 0000 Signed Impressions: Service Date/Time: Monday, June 12, 2017 11:10 - CONCLUSION: No acute disease. Shorty Montoya MD FACR Aspiration 06/12/17 0000 Signed Impressions: Service Date/Time: Monday, June 12, 2017 15:34 - CONCLUSION: Uncomplicated aspiration as above. Dennis Chau MD Objective Remarks GENERAL: Well-nourished, well-developed pleasant elderly female patient in NAD. SKIN: Warm and dry. No rash. HEENT: Normocephalic. Atraumatic.Pupils equal and round. Mucous membranes pink and moist. CARDIOVASCULAR: Regular rate and rhythm. S1, S2 noted. No murmur appreciated. RESPIRATORY: No accessory muscle use. Clear to auscultation. Breath sounds equal bilaterally. GASTROINTESTINAL: Abdomen soft, non-tender, nondistended. Normoactive bowel sounds x4. MUSCULOSKELETAL: No obvious deformities. Extremities without clubbing, cyanosis , or edema. Left dorsal hand and wrist with diffuse erythema, edema, warmth; with decreased ROM. NEUROLOGICAL: Awake and alert. No obvious cranial nerve deficits. Motor grossly within normal limits. Normal speech. PSYCHIATRIC: Appropriate mood and affect; insight and judgment normal. Medications and IVs Current Medications Medications (Trade) Dose Ordered Sig/Lou Route Start Time Stop Time Status Last Admin Sodium Chloride 1,000 ml @ 100 mls/hr Q10H IV 06/12/17 17:09 06/13/17 13:29 (NS Flush) 2 ml UNSCH PRN IV FLUSH 06/12/17 17:15 06/12/17 18:50 (NS Flush) 2 ml BID IV FLUSH 06/12/17 21:00 06/13/17 21:01 (Tylenol) 650 mg Q4H PRN PO 06/12/17 17:15 06/12/17 20:01 (Zofran Inj) 4 mg Q6H PRN IVP 06/12/17 17:15 06/12/17 18:49 (Compazine Supp) 25 mg Q12H PRN RECTAL 06/12/17 17:15 (Ambien) 5 mg HS PRN PO 06/12/17 17:15 06/12/17 20:01 (Heparin Inj) 5,000 units Q12H SQ 06/12/17 21:00 06/13/17 20:59 (Tylenol) 650 mg Q6H PRN PO 06/12/17 17:15 (Percocet 5-325 Mg) 1 tab Q6H PRN PO 06/12/17 17:15 (Percocet 10-325 Mg) 1 tab Q6H PRN PO 06/12/17 17:15 (Morphine Inj) 2 mg Q3H PRN IV PUSH 9/20/17 17:15 06/12/17 18:51 (Morphine Inj) 4 mg Q3H PRN IV PUSH 06/12/17 17:15 (Morphine Inj) 4 mg Q1H PRN IV PUSH 06/12/17 17:15 (Morphine Inj) 4 mg Q3H PRN IV PUSH 06/12/17 17:15 (Narcan Inj) 0.4 mg UNSCH PRN IV PUSH 06/12/17 17:15 (Sydnee-Colace) 1 tab BID PO 06/12/17 21:00 06/13/17 21:00 (Milk Of Magnesia Liq) 30 ml Q12H PRN PO 06/12/17 17:15 (Senokot) 17.2 mg Q12H PRN PO 06/12/17 17:15 (Dulcolax Supp) 10 mg DAILY PRN RECTAL 06/12/17 17:15 (Lactulose Liq) 30 ml DAILY PRN PO 06/12/17 17:15 Pharmacy Profile Note 0 ml @ 0 mls/hr UNSCH OTHER 06/12/17 17:15 (Ativan) 2 mg DAILY PRN PO 06/12/17 17:15 06/12/17 20:01 (Zoloft) 25 mg DAILY PO 06/13/17 09:00 06/13/17 08:08 (Robaxin) 1,000 mg Q8H PRN PO 06/12/17 17:30 (Pepcid) 10 mg BID PO 06/12/17 21:00 06/13/17 21:00 (Pill Splitter) 1 ea UNSCH PRN OTHER 06/12/17 18:00 Vancomycin HCl 1000 mg/Sodium Chloride 250 ml @ 250 mls/hr Q24H IV 06/13/17 20:00 06/13/17 21:00 Miscellaneous Information SPECIFIC LAB TO BE DRAWN:VANCOMYCIN TROUGH DATE TO... ONCE ONCE .XX 06/15/17 19:45 06/15/17 19:46 Piperacillin Sod/ Tazobactam Sod 50 ml @ 100 mls/hr Q6HR IV 06/13/17 18:00 06/14/17 05:46 A/P Problem List: (1) Rheumatoid arthritis ICD Code: M06.9 - Rheumatoid arthritis, unspecified (2) Osteoarthritis of hand, left ICD Code: M19.042 - Primary osteoarthritis, left hand (3) Swelling of left hand ICD Code: M79.89 - Other specified soft tissue disorders Assessment and Plan 71-year-old female with a past medical history significant for rheumatoid arthritis, chronic kidney disease stage III and chronic back pain secondary to degenerative disc disease/spinal stenosis of lumbar spine who presents to [facility] ED with complaints of left wrist pain, swelling and redness 1 day. Sepsis with Left Wrist Cellulitis, Pseudogout, rule out Septic Joint: meets sepsis criteria with leukocytosis WBC 16.4K, tachycardia HR 94, fever Tmax 100.6 , and source-left wrist cellulitis - Left wrist x-ray reviewed, shows excessive degenerative changes in the first carpometacarpal joint with probable degenerative instability - S/p joint aspiration by IR, revealed significantly elevated WBC 137K, and positive for calcium pyrophosphate crystals; culture pending - Labs reviewed, ESR 66, CRP 14.4, Lactic acid 1.1 - Continue antibiotics with IV vancomycin and Zosyn - Monitor blood cultures - Consult infectious disease, appreciate recommendations, will d/c antibiotics if cultures remain negative - Consult hand surgery, appreciate recommendations - Pain management with Percocet prn and IV morphine prn breakthrough pain - PT/OT eval/tx - cultures negative x2days, will d/c antibiotics and start on indomethacin 50mg tid for treatment of pseudogout Leukocytosis: Secondary to above. - Given IVF - Monitor CBC, improving Hyponatremia: Na 131 - Given IV fluid - Repeat BMP shows improvement with Na 135, continue to monitor Chronic kidney disease stage III - Creatinine 1.50. Unknown baseline. - elevated BUN ?dehydration - Given IVF - Avoid nephrotoxic agent - Monitor kidney function, improved, Cr 1.31 Rheumatoid arthritis, Chronic low back pain with DDD/spinal stenosis - continue pain medication as needed - Robaxin as needed - outpatient f/up with rheumatology Frequent PVCs: seen on telemetry and EKG, patient asymptomatic, denies any chest pain/palpitations/SOB - continue to monitor - check electrolytes, replace as needed DVT prophylaxis: scds, heparin Sabina Leal PA-C Jun 14, 2017 8:54 am
[2017-06-14] MEDS: DOCUSATE SODIUM 50 MG/SENNA 8.6 MG TAB PO SCH (09:52)
[2017-06-14] MEDS: FAMOTIDINE 20 MG TAB PO SCH (09:53)
[2017-06-14] MEDS: SODIUM CHLORIDE 0.9% FLUSH 10 ML FLUSH IV FLUSH SCH (09:53)
[2017-06-14] MEDS: SERTRALINE HCL 50 MG TAB PO SCH (09:53)
[2017-06-14] MEDS: HEPARIN SODIUM - SQ 10,000 UNITS/ML VIAL SQ SCH (09:53)
[2017-06-14 10:44] VITALS: BP 102/57; PULSE 80; RESP 20; TEMP 98.6; O2SAT 100
[2017-06-14 11:13] LABS: AUTOMATED NEUTROPHIL # 6.7 TH/MM3 (1.8-7.7); BASOPHIL % 0.4 % (0.0-2.0); EOSINOPHIL % 0.5 % (0.0-4.0); HEMATOCRIT 27.9 % (35.0-46.0); HEMO FLAGS DIFF FINAL; LYMPH % 7.2 % (9.0-44.0); LYMPHOCYTE # 0.6 TH/MM3 (1.0-4.8); MEAN CELL VOLUME 92.1 FL (80.0-100.0); MEAN CORPUSCULAR HEMOGLOBIN 31.8 PG (27.0-34.0); MEAN CORPUSCULAR HGB CONC 34.5 % (32.0-36.0); NEUT % 86.9 % (16.0-70.0); PLATELET COUNT 209 TH/MM3 (150-450); RED BLOOD COUNT 3.03 MIL/MM3 (4.00-5.30); RED CELL DISTRIBUTION WIDTH 13.3 % (11.6-17.2); WHITE BLOOD COUNT 7.7 TH/MM3 (4.0-11.0)
[2017-06-14 11:39] VITALS: BP 116/58; PULSE 74; RESP 16; TEMP 98.6; O2SAT 99
[2017-06-14 11:39] LABS: BICARBONATE 21.8 MEQ/L (21.0-32.0); MAGNESIUM 1.9 MG/DL (1.5-2.5); POTASSIUM 3.4 MEQ/L (3.5-5.1)
[2017-06-14] MEDS ORDERED: INDOMETHACIN 50 MG CAP PO SCH (14:00)
[2017-06-14] MEDS ORDERED: INDO50CA PO (14:09)
--- NOTE | 2017-06-14 14:10 | HHI.DCPOC ---
Discharge Care Plan Diagnosis: (1) Pseudogout (2) Swelling of left hand (3) Rheumatoid arthritis (4) CKD (chronic kidney disease) stage 3, GFR 30-59 ml/min Goals to Promote Your Health * To prevent worsening of your condition and complications * To maintain your health at the optimal level Directions to Meet Your Goals Take your medications as prescribed Follow your dietary instruction Follow activity as directed Keep your appointments as scheduled Take your immunizations and boosters as scheduled If your symptoms worsen call your PCP, if no PCP go to Urgent Care Center or Emergency Room Smoking is Dangerous to Your Health. Avoid second hand smoke Call the 24-hour hour crisis hotline for domestic abuse at Sabina Leal PA-C Jun 14, 2017 14:10
[2017-06-14] MEDS ORDERED: POTASSIUM CHLORIDE 20 MEQ CONTROLLED RELEASE TAB PO ONE (15:00)
--- NOTE | 2017-06-14 15:19 | HHI.DS ---
cc: Wale Serna III, MD; Violeta Moran MD Discharge Summary Admission Date Jun 13, 2017 at 7:55 am Discharge Date: Jun 14, 2017 Admitting Diagnosis (1) Osteoarthritis of hand, left ICD Code: M19.042 - Primary osteoarthritis, left hand Diagnosis: Principal (2) Swelling of left hand ICD Code: M79.89 - Other specified soft tissue disorders Diagnosis: Principal (3) Pseudogout ICD Code: M11.20 - Other chondrocalcinosis, unspecified site Diagnosis: Principal (4) Sepsis ICD Code: A41.9 - Sepsis, unspecified organism Diagnosis: Principal (5) CKD (chronic kidney disease) stage 3, GFR 30-59 ml/min ICD Code: N18.3 - Chronic kidney disease, stage 3 (moderate) Diagnosis: Secondary (6) Rheumatoid arthritis ICD Code: M06.9 - Rheumatoid arthritis, unspecified Diagnosis: Secondary Status: Chronic Procedures 06/12/17 - Right wrist aspiration by IR Brief History - From Admission This is a 71-year-old female with a past medical history significant for rheumatoid arthritis, chronic kidney disease stage III and chronic back pain secondary to degenerative disc disease/spinal stenosis of lumbar spine who presents to [facility] ED with complaints of left wrist pain, swelling and redness 1 day. Patient states she began having pain in the left wrist last night and this morning began to experience increased swelling, warmth and redness running up her left arm. She reports decreased range of motion of the left hand. She denies any other complaints. She denies any recent injury left hand including animal bites or scratches. In the ED, patient was found to have an elevated white count of 16.4. She does admit that she was recently given him a course of prednisone for exacerbation of low back pain which she stopped taking a week ago. While in the ED, patient underwent IR aspiration of the left wrist and synovial studies are pending. She has elevated sedimentation rate of 66 and CRP of 14.4. CBC/BMP: 06/14/17 1043 06/14/17 1043 Significant Findings Laboratory Tests Test 06/12/17 10:50 06/12/17 15:15 06/13/17 06:50 06/14/17 10:43 White Blood Count 16.4 TH/MM3 (4.0-11.0) 11.8 TH/MM3 (4.0-11.0) Red Blood Count 3.54 MIL/MM3 (4.00-5.30) 3.11 MIL/MM3 (4.00-5.30) 3.03 MIL/MM3 (4.00-5.30) Hemoglobin 10.9 GM/DL (11.6-15.3) 9.7 GM/DL (11.6-15.3) 9.6 GM/DL (11.6-15.3) Hematocrit 32.9 % (35.0-46.0) 28.7 % (35.0-46.0) 27.9 % (35.0-46.0) Mean Platelet Volume 6.7 FL (7.0-11.0) Neutrophils (%) (Auto) 90.8 % (16.0-70.0) 84.4 % (16.0-70.0) 86.9 % (16.0-70.0) Lymphocytes (%) (Auto) 2.3 % (9.0-44.0) 6.9 % (9.0-44.0) 7.2 % (9.0-44.0) Neutrophils # (Auto) 14.9 TH/MM3 (1.8-7.7) 10.0 TH/MM3 (1.8-7.7) Lymphocytes # (Auto) 0.4 TH/MM3 (1.0-4.8) 0.8 TH/MM3 (1.0-4.8) 0.6 TH/MM3 (1.0-4.8) Monocytes # (Auto) 1.1 TH/MM3 (0-0.9) 1.0 TH/MM3 (0-0.9) Erythrocyte Sedimentation Rate 66 mm/hr (0-30) Blood Urea Nitrogen 21 MG/DL (7-18) Creatinine 1.50 MG/DL (0.50-1.00) 1.31 MG/DL (0.50-1.00) 1.41 MG/DL (0.50-1.00) Random Glucose 119 MG/DL (74-106) 107 MG/DL (74-106) 136 MG/DL (74-106) Albumin 3.0 GM/DL (3.4-5.0) 2.2 GM/DL (3.4-5.0) Aspartate Amino Transf (AST/SGOT) 12 U/L (15-37) 9 U/L (15-37) Sodium Level 131 MEQ/L (136-145) 135 MEQ/L (136-145) 135 MEQ/L (136-145) Estimat Glomerular Filtration Rate 34 ML/MIN (>89) 40 ML/MIN (>89) 37 ML/MIN (>89) C-Reactive Protein 14.40 MG/DL (0.00-0.30) Synovial Fluid Color WHITE (STRAW) Synovial Fluid Appearance MARKED (CLEAR) Synovial Fluid WBC 625784 /MM3 (0-200) Synovial Fluid RBC 900 /MM3 (0-0) Synovial Fluid Neutrophils 82 % (0-25) Synovial Fluid Crystals POS - CALCIUM PYRO (NONE) Monocytes (%) (Auto) 8.3 % (0.0-8.0) Total Protein 6.0 GM/DL (6.4-8.2) Calcium Level 8.4 MG/DL (8.5-10.1) 8.0 MG/DL (8.5-10.1) Total Bilirubin 1.2 MG/DL (0.2-1.0) Potassium Level 3.4 MEQ/L (3.5-5.1) Imaging Last Impressions Wrist X-Ray 06/12/17 Signed Impressions: Service Date/Time: Monday, June 12, 2017 11:11 - CONCLUSION: Excessive degenerative changes first carpometacarpal joint with probable degenerative instability. Negative for acute fracture. Shorty Montoya MD FACR Chest X-Ray 06/12/17 Signed Impressions: Service Date/Time: Monday, June 12, 2017 11:10 - CONCLUSION: No acute disease. Shorty Montoya MD FACR Aspiration 06/12/17 Signed Impressions: Service Date/Time: Monday, June 12, 2017 15:34 - CONCLUSION: Uncomplicated aspiration as above. Dennis Chau MD PE at Discharge GENERAL: Well-nourished, well-developed pleasant elderly female patient in [facility]. SKIN: Warm and dry. No rash. HEENT: Normocephalic. Atraumatic.Pupils equal and round. Mucous membranes pink and moist. CARDIOVASCULAR: Regular rate and rhythm. S1, S2 noted. No murmur appreciated. RESPIRATORY: No accessory muscle use. Clear to auscultation. Breath sounds equal bilaterally. GASTROINTESTINAL: Abdomen soft, non-tender, nondistended. Normoactive bowel sounds x4. MUSCULOSKELETAL: No obvious deformities. Extremities without clubbing, cyanosis , or edema. Left dorsal hand and wrist with diffuse erythema, edema, warmth; with decreased ROM. NEUROLOGICAL: Awake and alert. No obvious cranial nerve deficits. Motor grossly within normal limits. Normal speech. PSYCHIATRIC: Appropriate mood and affect; insight and judgment normal. Hospital Course 71-year-old female with a past medical history significant for rheumatoid arthritis, chronic kidney disease stage III and chronic back pain secondary to degenerative disc disease/spinal stenosis of lumbar spine who presents to [facility] ED with complaints of left wrist pain, swelling and redness 1 day. The patient was initially admitted with concern for left wrist septic arthritis. She met sepsis criteria with leukocytosis WBC 16.4K, tachycardia HR 94, fever Tmax 100.6, and source-left wrist cellulitis. She underwent joint aspiration by IR, revealed significantly elevated WBC 137K, and positive for calcium pyrophosphate crystals; culture initially pending. She was started on broad-spectrum antibiotics with IV vancomycin and IV Zosyn. She was evaluated by hand surgery Dr. Serna, and infectious disease Dr. Lowe. Both physicians agreed likely related to pseudogout, no evidence of septic joint. Wound and blood cultures were negative 2 days. Antibiotics were discontinued. She was started on indomethacin 50 mg every eight hours for pseudogout. Symptoms improved. She was cleared for discharge by both hand surgery and infectious disease. Patient was instructed to take this with food, and have her BMP checked as outpatient to monitor her renal function. She was also instructed to follow up with hand surgeon Dr. Serna if symptoms persist, as he could perform steroid injection in the office. Patient is understanding and agreeable to this plan. All questions were answered with family at bedside. Pt Condition on Discharge: Stable Discharge Disposition: Discharge Home Discharge Time: > 30 minutes Discharge Instructions DIET: Follow Instructions for: As Tolerated, No Restrictions Activities you can perform: Regular-No Restrictions Follow up Referrals: Allergy & Immunology - 1 Week with Anaid Handy MD Hand Surgery - 1 Week with Wale Serna III, MD PCP Follow-up - 1 Week with Violeta Moran MD New Orders: BASIC METABOLIC PROF - 2-3 Days New Medications: Indomethacin (Indomethacin) 50 Mg Cap 50 MG PO Q8HR for Inflammation, #30 CAP Take with food, milk, or antacids to decrease stomach adverse effects. Continued Medications: Carisoprodol (Soma) 250 Mg Tab 250 MG PO QID PRN for PAIN, TAB 0 Refills Fish Oil-Cholecalciferol (Fish Oil + D3) 1,200-1,000 Mg-Unit Cap 1 CAP PO DAILY for Nutritional Supplement, #30 CAP 0 Refills Lorazepam (Lorazepam) 2 Mg Tab 2 MG PO DAILY PRN for ANXIETY, TAB 0 Refills Misc Natural Products (Estroven + Energy Maximum) 400 Mcg Tab Prednisone (48) 10 mg tab Dose Pack (Prednisone (48) 10 mg tab Dose Pack) 10 Mg Dspk 10 MG PO DIRECTED for Inflammation, #1 DSPK 0 Refills Sertraline (Sertraline) 25 Mg Tab 25 MG PO DAILY, #30 TAB 0 Refills Tramadol (Tramadol) 50 Mg Tab 50 MG PO Q6H PRN for PAIN, TAB 0 Refills Vit B Comp/C/FA/Iron/Vit E (Vitamin B Complex Tablet) 500-400-18 Tablet 1 TAB PO DAILY Sabina Leal PA-C Jun 14, 2017 3:19 pm
--- NOTE | 2017-06-14 16:22 | EKG ---
Date Performed: 06/14/2017 Time Performed: 05:51:10 PTAGE: 72 years EKG: Sinus rhythm WITH FREQUENT VENTRICULAR PREMATURE COMPLEXES SEPTAL MYOCARDIAL INFARCTION ABNORMAL ECG NO PREVIOUS TRACING DOCTOR: Lily Wu Interpretating Date/Time 06/14/2017 16:21:03
[2017-06-15] MEDS ORDERED: PHARMACY ORDERED LAB ONE (19:45)
== END 2017-06-14 18:03 | disposition home or self-care (01) ==
LOC: NEPE 09:29 → NEDA 17:14 → INTOOBSV 17:14 → NEDA 17:25 → UNDOADMIN 17:25 → NEPGCP 19:11 → NEDA 19:11 → OBSVTOIN 06-13 07:55 → INTOOBSV 06-13 07:55
PROVIDERS: ADMIT Internal Medicine; ATTEND Internal Medicine
DX: M25.432 Effusion, left wrist (principal); M06.9 Rheumatoid arthritis, unspecified; E87.1 Hypo-osmolality and hyponatremia; N18.3 Chronic kidney disease, stage 3 (moderate); L03.114 Cellulitis of left upper limb; M11.232 Other chondrocalcinosis, left wrist; G89.29 Other chronic pain; E78.5 Hyperlipidemia, unspecified; M54.5 Low back pain; E86.0 Dehydration; I49.3 Ventricular premature depolarization; M19.042 Primary osteoarthritis, left hand; M48.07 Spinal stenosis, lumbosacral region; M51.37 Other intervertebral disc degeneration, lumbosacral region; E83.51 Hypocalcemia; N18.9 Chronic kidney disease, unspecified
CPT/HCPCS: 20605; 71010; 73110; 80048; 80053; 83036; 83605; 83735; 84100; 84439; 84443; 85025; 85652; 86140; 87040; 87070; 87205; 89051; 89060; 93005; 96361; 96365; 96366; 96372; 96375; 96376; 97161; 97166; 99285; G0378; G8987; G8988; J1644; J2270; J2405; J2543; J3370; J7030; J7050

== ENCOUNTER → 2017-06-19 | Outpatient (CLI) | payer MEDICARE ==
[~2017-06-19] MED LIST changes: -CARI350T25; -CYCL1TAB29 PO; +INDO50CA PO; +SOMA250T PO; +TH BTAB PO
[2017-06-19 11:17] LABS: BICARBONATE 25.7 MEQ/L (21.0-32.0)
== END ==
LOC: CLAB 10:41
PROVIDERS: ATTEND Physician Assistant
DX: N18.3 Chronic kidney disease, stage 3 (moderate) (principal)
CPT/HCPCS: 36415; 80048

== ENCOUNTER 2017-06-22 20:18 | Inpatient (IN) | payer MEDICARE ==
[2017-06-22] VITALS (21 sets, daily range): BP systolic 59–108; BP diastolic 40–61; PULSE 85–120; RESP 16–22; TEMP 96.1–98.3; O2SAT 94–99
[~2017-06-22] VITALS: Ht 154.9 cm; Wt 75.6 kg
[2017-06-22] MEDS ORDERED: SODIUM CHLOR 0.9% 1000 ML INJ 1,000 ML IV SCH (21:07)
[2017-06-22] MEDS ORDERED: SODIUM CHLOR 0.9% 1000 ML INJ 800 ML IV ONE (21:09)
[2017-06-22] MEDS ORDERED: SODIUM CHLOR 0.9% 1000 ML INJ 1,000 ML IV ONE ×4 (21:09→23:27)
[2017-06-22] MEDS ORDERED: PANTOPRAZOLE INJ 80 MG in SODIUM CHLORIDE 0.9% INJ 35 ML IV ONE (21:15)
--- NOTE | 2017-06-22 21:21 | PD ---
HPI Chief Complaint: General Weakness Time Seen by Provider: 21:02 Travel History International Travel<30 days: No Contact w/Intl Traveler<30days: No Traveled to known affect area: No History of Present Illness HPI 72-year-old female that presents to the ED for evaluation of generalized weakness and diarrhea for the past 5 days. Per his been trying to get her to come here but she's been persistent. Today she seemed more confused since she's been unable to ambulate without assistance. She feels dizzy and lightheaded. She has abdominal discomfort. She says that she has no chest pain or shortness of breath. She be having watery diarrhea followed 5 days. She was released from the hospital on the for pseudogout. She was admitted secondary to possible septic joint which she was not found to have this. She states having 8 out of 10 pain on the abdomen. Denies taking any blood thinners. States that her stool is usually liquidy but no darkness. She was started on indomethacin. Per she's been more confused today. Confusion and weakness started about 3 days ago. She has no allergies to medication. Other medical issues. No nausea or vomiting. They were told that with the medication she might develop some diarrhea today weren't too concerned until the patient started to get more weak and confused. PFSH Past Medical History Arthritis: Yes (RA) Asthma: No Anxiety: Yes Depression: Yes Heart Rhythm Problems: No Cancer: No Cardiovascular Problems: Yes High Cholesterol: Yes Chemotherapy: No Chest Pain: No Congestive Heart Failure: No COPD: No Diabetes: No Diminished Hearing: Yes Endocrine: No Genitourinary: No Immune Disorder: No Musculoskeletal: Yes (spinal stenosis/ DJD) Neurologic: No Psychiatric: Yes Reproductive: No Respiratory: No Immunizations Current: Yes (shingles) Radiation Therapy: No Renal Failure: Yes (Stage 3 kidney disease) Sleep Apnea: No Thyroid Disease: No Tetanus Vaccination: Unknown Menopausal: Yes Past Surgical History Eye Surgery: Yes (cataracts) Other Surgery: Yes (carpal tunnel sx) Social History Alcohol Use: No Tobacco Use: No Substance Use: No Allergies-Medications (Allergen,Severity, Reaction): Coded Allergies: No Known Allergies (Unverified , 06/12/17) Reported Meds & Prescriptions Reported Meds & Active Scripts Active Indomethacin 50 Mg Cap 50 Mg PO Q8HR Take with food, milk, or antacids to decrease stomach adverse effects. Prednisone (48) 10 mg tab Dose Pack (Prednisone) 10 Mg Dspk 10 Mg PO DIRECTED Reported Soma (Carisoprodol) 250 Mg Tab 250 Mg PO QID PRN Vitamin B Complex Tablet (Vit B Comp/C/FA/Iron/Vit E) 500-400-18 Tablet 1 Tab PO DAILY Fish Oil + D3 (Fish Oil-Cholecalciferol) 1,200-1,000 Mg-Unit Cap 1 Cap PO DAILY Estroven + Energy Maximum ([employer] Natural Products) 400 Mcg Tab Tramadol (Tramadol HCl) 50 Mg Tab 50 Mg PO Q6H PRN Lorazepam 2 Mg Tab 2 Mg PO DAILY PRN Sertraline (Sertraline HCl) 25 Mg Tab 25 Mg PO DAILY Review of Systems Except as stated in HPI: all other systems reviewed are Neg Physical Exam Narrative GENERAL: SKIN: Warm and dry. HEAD: Atraumatic. Normocephalic. EYES: Pupils equal and round. No scleral icterus. No injection or drainage. ENT: No nasal bleeding or discharge. Mucous membranes pink and moist. Tongue is midline. No uvula deviation. NECK: Trachea midline. No JVD. CARDIOVASCULAR: Regular rate and rhythm. No murmurs, S3, S4. RESPIRATORY: No accessory muscle use. Clear to auscultation. Breath sounds equal bilaterally. GASTROINTESTINAL: Abdomen soft, non-tender, nondistended. Hepatic and splenic margins not palpable. MUSCULOSKELETAL: Extremities without clubbing, cyanosis, or edema. No obvious deformities. Full range of motion of the upper and lower extremities bilaterally. 2+ pulses bilaterally. Rectal exam done and did not show any sign of hemorrhoids. Hemoccult was done and was positive. NEUROLOGICAL: Awake and alert. No obvious cranial nerve deficits. Motor grossly within normal limits. Five out of 5 muscle strength in the arms and legs. Normal speech. PSYCHIATRIC: Appropriate mood and affect; insight and judgment normal. Data Data Last Documented VS Vital Signs Date Time Temp Pulse Resp B/P (MAP) Pulse Ox O2 Delivery O2 Flow Rate FiO2 06/22/17 21:59 96.6 108 18 90/52 06/22/17 20:20 95 Room Air Orders Orders Complete Blood Count With Diff (06/22/17 21:07) Comprehensive Metabolic Panel (06/22/17 21:07) Lipase (06/22/17 21:07) Lactic Acid (06/22/17 21:07) Prothrombin Time / Inr (Pt) (06/22/17 21:07) Act Partial Throm Time (Ptt) (06/22/17 21:07) Urinalysis - C+S If Indicated (06/22/17 21:07) Iv Access Insert/Monitor (06/22/17 21:07) Ecg Monitoring (06/22/17 21:07) Oximetry (06/22/17 21:07) Sodium Chlor 0.9% 1000 Ml Inj (Ns 1000 M (06/22/17 21:07) Electrocardiogram (06/22/17 21:07) Type And Screen (06/22/17 21:07) Blood Culture (06/22/17 21:09) C Diff Toxin Pcr (06/22/17 21:09) Sodium Chlor 0.9% 1000 Ml Inj (Ns 1000 M (06/22/17 21:09) Sodium Chlor 0.9% 1000 Ml Inj (Ns 1000 M (06/22/17 21:09) Ct Abd/Pel W/O Iv Contrast (06/22/17 ) Sodium Chloride 0.9... W/Pantoprazole In (06/22/17 21:15) Sodium Chloride 0.9... W/Pantoprazole In (06/22/17 21:15) Red Blood Cells (Rbc) (06/22/17 21:15) Arterial Blood Gas (Abg) (06/22/17 ) Urinary Catheter Insert/Apply (06/22/17 21:32) Blood Product Administration (06/22/17 21:32) Norepinephrine-Dextrose Drip (Levophed-D (06/22/17 21:45) Terbutaline Inj (Brethine Inj) (06/22/17 21:45) Vancomycin Inj (Vancomycin Inj) (06/22/17 21:32) Piperacil-Tazo 4.5 Gm Premix (Zosyn 4.5 (06/22/17 21:32) Sodium Chlor 0.9% 1000 Ml Inj (Ns 1000 M (06/22/17 22:30) Warming Mcqueeney / Warming Syst PRN (06/22/17 22:28) Admit Order (Ed Use Only) (06/22/17 22:35) Labs Laboratory Tests Test 06/22/17 21:20 06/22/17 21:22 Blood Gas Puncture Site RT FEMORAL Blood Gas Patient Temperature 98.6 Blood Gas HCO3 16 mmol/L Blood Gas Base Excess -8.6 mmol/L Blood Gas Oxygen Saturation 94 % Arterial Blood pH 7.38 Arterial Blood Partial Pressure CO2 27 mmHg Arterial Blood Partial Pressure O2 80 mmHG Arterial Blood Oxygen Content 10.1 Vol % Arterial Blood Carboxyhemoglobin 0.9 % Arterial Blood Methemoglobin 0.7 % Blood Gas Hemoglobin 7.5 G/DL Oxygen Delivery Device ROOM AIR Blood Gas Inspired Oxygen 21 % White Blood Count 2.8 TH/MM3 Red Blood Count 2.75 MIL/MM3 Hemoglobin 8.6 GM/DL Hematocrit 25.5 % Mean Corpuscular Volume 92.7 FL Mean Corpuscular Hemoglobin 31.1 PG Mean Corpuscular Hemoglobin Concent 33.5 % Red Cell Distribution Width 14.1 % Platelet Count 442 TH/MM3 Mean Platelet Volume 6.9 FL CBC Comment AUTO DIFF Differential Total Cells Counted 100 Neutrophils % (Manual) 30 % Band Neutrophils % 46 % Lymphocytes % 13 % Monocytes % 11 % Neutrophils # (Manual) 2.1 TH/MM3 Differential Comment FINAL DIFF MANUAL Platelet Estimate NORMAL Platelet Morphology Comment CLUMPED Ovalocytes 1+ [place] Cells 1+ Prothrombin Time 13.8 SEC Prothromb Time International Ratio 1.2 RATIO Activated Partial Thromboplast Time 35.9 SEC Blood Urea Nitrogen 45 MG/DL Creatinine 3.22 MG/DL Random Glucose 71 MG/DL Total Protein 5.3 GM/DL Albumin 1.8 GM/DL Calcium Level 10.1 MG/DL Alkaline Phosphatase 93 U/L Aspartate Amino Transf (AST/SGOT) 14 U/L Alanine Aminotransferase (ALT/SGPT) 15 U/L Total Bilirubin 0.6 MG/DL Sodium Level 134 MEQ/L Potassium Level 4.1 MEQ/L Chloride Level 103 MEQ/L Carbon Dioxide Level 17.8 MEQ/L Anion Gap 13 MEQ/L Estimat Glomerular Filtration Rate 14 ML/MIN Lactic Acid Level 4.5 mmol/L Lipase 34 U/L [facility] Medical Decision Making Medical Screen Exam Complete: Yes Emergency Medical Condition: Yes Medical Record Reviewed: Yes Interpretation(s) CBC & BMP Diagram 06/22/17 21:22 Total Protein 5.3 L, Albumin 1.8 L, Calcium Level 10.1, Alkaline Phosphatase 93 , Aspartate Amino Transf (AST/SGOT) 14 L, Alanine Aminotransferase (ALT/SGPT) 15 , Total Bilirubin 0.6 lactic of 4.5 Lipase WNL coags WNL Differential Diagnosis Sepsis versus hypotension versus diarrhea versus C. difficile versus acute abdomen versus medication side effect versus confusion Narrative Course 72-year-old female that presents to the ED for evaluation of confusion and diarrhea. Patient was properly examined and was found to have signs and symptoms very concerning for sepsis. Labs and imaging were ordered. Hemoccult was done by me and was positive. My attending Dr. Beckford evaluated the patient with me at the same time. Patient was given IV fluids. Sepsis protocol was ordered. Type and screen ordered as well. Patient was found to be profoundly hypotensive. Fluid resuscitation was started aggressively. Patient was started on blood products as well as started antibiotics per my attendings recommendations. Labs and imaging show what appears to be severe sepsis and GI bleed. Patient will be admitted to the assembler 1st shift Dr. Corey who agrees to admission. My attending spoke with family and patient about this and agree with plan. Sepsis Criteria SIRS Criteria (2 or more): Temp > 100.9 or < 96.8, Heart rate over 90, WBC > 03321, < 4000 or > 10% bands Sepsis Criteria (SIRS+source): Infect source susp/known Severe Sepsis (+one): Organ Dysfunction, Hypotension, Lactate >2 Septic Shock Criteria: Lactic acid >=4 Criteria Outcome: Meets septic shock criteria Diagnosis Primary Impression: Septic shock Additional Impressions: Acute on chronic kidney failure Qualified Codes: N17.9 - Acute kidney failure, unspecified; N18.9 - Chronic kidney disease, unspecified Lactic acid acidosis Diarrhea in adult patient Admitting Information Admitting Physician Requests: Admit Adam Rivero Jun 22, 2017 21:21
[2017-06-22] MEDS ORDERED: VANCOMYCIN INJ 1,000 MG in SODIUM CHLOR 0.9% 250 ML INJ 250 ML IV STA (21:32)
[2017-06-22] MEDS ORDERED: PIPERACIL-TAZO 4.5 GM PREMIX 100 ML IV STA (21:32)
[2017-06-22 21:37] LABS: HEMATOCRIT 25.5 % (35.0-46.0); MEAN CELL VOLUME 92.7 FL (80.0-100.0); MEAN CORPUSCULAR HEMOGLOBIN 31.1 PG (27.0-34.0); MEAN CORPUSCULAR HGB CONC 33.5 % (32.0-36.0); PLATELET COUNT 442 TH/MM3 (150-450); RED BLOOD COUNT 2.75 MIL/MM3 (4.00-5.30); RED CELL DISTRIBUTION WIDTH 14.1 % (11.6-17.2); WHITE BLOOD COUNT 2.8 TH/MM3 (4.0-11.0)
[2017-06-22 21:40] LABS: HEMO FLAGS AUTO DIFF
[2017-06-22] MEDS ORDERED: NOREPINEPHRINE-DEXTROSE DRIP 250 ML IV PRN (21:45)
[2017-06-22] MEDS ORDERED: TERBUTALINE INJ 1 MG/ML AMP SQ PRN ×2 (21:45→23:30)
[2017-06-22 21:47] LABS: APTT (PATIENT) 35.9 SEC (24.3-30.1); INTERNATIONAL NORMALIZED RATIO 1.2 RATIO; PROTHROMBIN TIME - PATIENT 13.8 SEC (9.8-11.6)
[2017-06-22 22:09] LABS: ALT (GPT) 15 U/L (10-53); ANION GAP 13 MEQ/L (5-15); AST (GOT) 14 U/L (15-37); BICARBONATE 17.8 MEQ/L (21.0-32.0); BLOOD UREA NITROGEN 45 MG/DL (7-18); CHLORIDE 103 MEQ/L (98-107); GLOMERULAR FILTRATION RATE 14 ML/MIN (>89); POTASSIUM 4.1 MEQ/L (3.5-5.1); SODIUM (NA) 134 MEQ/L (136-145)
[2017-06-22 22:14] LABS: BANDS 46 % (0-6); NEUTROPHIL # MANUAL DIFF 2.1 TH/MM3 (1.8-7.7); POLYS (SEG NEUTROPHILS) 30 % (16-70); WBC DIFF SAMPLE 100
[2017-06-22 22:15] LABS: BURR CELLS 1+ (NORMAL); OVALOCYTES 1+ (NORMAL); PLATELET ESTIMATE SMEAR NORMAL (NORMAL); PLATELET MORPHOLOGY CLUMPED (NORMAL)
[2017-06-22 22:16] LABS: SCAN/DIFF FINAL DIFF MANUAL
[2017-06-22 22:20] LABS: ALKALINE PHOSPHATASE 93 U/L (45-117); TOTAL BILIRUBIN ADULT 0.6 MG/DL (0.2-1.0)
[2017-06-22 22:30] LABS: BLOOD GAS BASE EXCESS -8.6 mmol/L (-2-2); BLOOD GAS CARBOXYHEMOGLOBIN 0.9 % (0-4); BLOOD GAS HCO3 16 mmol/L (22-26); BLOOD GAS METHEMOGLOBIN 0.7 % (0-2); BLOOD GAS O2 HGB SATURATION 94 % (90-100); BLOOD GAS OXYGEN CONTENT 10.1 Vol % (12.0-20.0); BLOOD GAS PCO2 27 mmHg (38-42); BLOOD GAS PO2 80 mmHG (61-120); BLOOD GAS TOTAL HGB 7.5 G/DL (12.0-16.0); TEMP CORR TO 98.6
[2017-06-22 22:31] LABS: CRITICAL VALUE YES; DRAW SITE RT FEMORAL; FIO2 21 %; NUMBER OF ARTERIAL PUNCTURES 1; OXYGEN DEVICE ROOM AIR; STAT YES
[2017-06-22] MEDS: PANTOPRAZOLE INJ 80 MG in SODIUM CHLORIDE 0.9% INJ 100 ML IV SCH (22:31)
--- NOTE | 2017-06-22 22:40 | HHI.HP ---
[facility] Service Critical Care Medicine Primary Care Physician Sabina Leal PA-C Admission Diagnosis septic shock, GI bleed, diarrhea, acute on chronic kidney injury Diagnosis: Travel History International Travel<30 Days: No Contact w/Intl Traveler <30 Da: No Traveled to Known Affected Are: No History of Present Illness 72-year-old female presents for evaluation of generalized weakness and diarrhea for the past 5 days. Today she became more confused and she has been unable to ambulate without assistance. She feels dizzy and lightheaded. She has abdominal discomfort. She denies any chest pain or shortness of breath. She has been having watery diarrhea for loss 5 days. She was released from the hospital on the 14 of June after treatment of pseudogout. She was admitted secondary to possible septic joint which she was not found to have this. She complains on severe abdominal pain and admits that her stool is usually liquidly but no blood or melena. She was started on indomethacin for treatment of pseudogout. Per she's been more confused today. Confusion and weakness started about 3 days ago. The CAT scan of the abdomen performed in the emergency department confirmed bowel wall thickening consistent with colitis and her stool is positive for C. difficile. Review of Systems Constitutional: COMPLAINS OF: Weight loss, Dizziness, Change in appetite, DENIES: Diaphoretic episodes, Fatigue, Fever, Weight gain, Chills, Night Sweats Endocrine: DENIES: Abnorml menstrual pattern, Heat/cold intolerance, Polydipsia , Polyuria, Polyphagia Eyes: DENIES: Blurred vision, Diplopia, Eye inflammation, Eye pain, Vision loss , Photosensitivity, Double Vision Ears, nose, mouth, throat: DENIES: Tinnitus, Hearing loss, Vertigo, Nasal discharge, Oral lesions, Throat pain, Hoarseness, Ear Pain, Running Nose, Epistaxis, Sinus Pain, Toothache, Odynophagia Respiratory: DENIES: Apneas, Cough, Snoring, Wheezing, Hemoptysis, Sputum production, Shortness of breath Cardiovascular: DENIES: Chest pain, Palpitations, Syncope, Dyspnea on Exertion , PND, Lower Extremity Edema, Orthopnea, Claudication Gastrointestinal: COMPLAINS OF: Abdominal pain, Diarrhea, Anorexia, DENIES: Black stools, Bloody stools, Constipation, Nausea, Vomiting, Difficulty Swallowing Genitourinary: DENIES: Abnormal vaginal bleeding, Dysmenorrhea, Dyspareunia, Sexual dysfunction, Urinary frequency, Urinary incontinence, Urgency, Hematuria , Dysuria, Nocturia, Vaginal discharge Musculoskeletal: DENIES: Joint pain, Muscle aches, Stiffness, Joint Swelling, Back pain, Neck pain Integumentary: DENIES: Abnormal pigmentation, Pruritus, Rash, Nail changes, Breast masses, Breast skin changes, Nipple discharge Hematologic/lymphatic: DENIES: Bruising, Lymphadenopathy Immunologic/allergic: DENIES: Eczema, Urticaria Neurologic: COMPLAINS OF: Poor Balance, DENIES: Abnormal gait, Headache, Localized weakness, Paresthesias, Seizures, Speech Problems, Tremor Psychiatric: DENIES: Anxiety, Confusion, Mood changes, Depression, Hallucinations, Agitation, Suicidal Ideation, Homicidal Ideation, Delusions Past Family Social History Allergies: Coded Allergies: No Known Allergies (Unverified , 06/12/17) Past Medical History Rheumatoid arthritis Chronic kidney disease stage III CLBP 2/2 Degenerative disc disease/spinal stenosis Past Surgical History Bilateral carpal tunnel release Cataract surgery Teeth extraction Right bunionectomy Reported Medications Reported Meds & Active Scripts Active Indomethacin 50 Mg Cap 50 Mg PO Q8HR Take with food, milk, or antacids to decrease stomach adverse effects. Prednisone (48) 10 mg tab Dose Pack (Prednisone) 10 Mg Dspk 10 Mg PO DIRECTED Reported Soma (Carisoprodol) 250 Mg Tab 250 Mg PO QID PRN Vitamin B Complex Tablet (Vit B Comp/C/FA/Iron/Vit E) 500-400-18 Tablet 1 Tab PO DAILY Fish Oil + D3 (Fish Oil-Cholecalciferol) 1,200-1,000 Mg-Unit Cap 1 Cap PO DAILY Estroven + Energy Maximum (Returboc Natural Products) 400 Mcg Tab Tramadol (Tramadol HCl) 50 Mg Tab 50 Mg PO Q6H PRN Lorazepam 2 Mg Tab 2 Mg PO DAILY PRN Sertraline (Sertraline HCl) 25 Mg Tab 25 Mg PO DAILY Active Ordered Medications Current Medications Medications (Trade) Dose Ordered Sig/Lou Route PRN Reason Start Time Stop Time Status Last Admin Dose Admin Pantoprazole Sodium 80 mg/ Sodium Chloride 100 ml @ 10 mls/hr Q10H IV 06/22/17 21:15 06/22/17 22:31 Lorazepam (Ativan) 2 mg DAILY PRN PO ANXIETY 06/22/17 22:45 Prednisone (Deltasone) 10 mg DAILY PO 06/23/17 09:00 Sertraline HCl (Zoloft) 25 mg DAILY PO 06/23/17 09:00 Vitamin B Complex/ Vitamin C (Allbee C) 1 tab DAILY PO 06/23/17 09:00 Sodium Chloride 1,000 ml @ 144 mls/hr Q6H57M IV 06/22/17 22:42 06/23/17 00:44 Sodium Chloride (NS Flush) 2 ml UNSCH PRN IV FLUSH FLUSH AFTER USING IV ACCESS 06/22/17 22:45 Sodium Chloride (NS Flush) 2 ml BID IV FLUSH 06/23/17 09:00 Acetaminophen (Tylenol) 650 mg Q6H PRN PO PAIN 1-10 AND/OR FEVER >101F 06/22/17 22:45 Morphine Sulfate (Morphine Inj) 2 mg Q2H PRN IV PUSH PAIN SCALE 6 TO 10 06/22/17 22:45 06/23/17 03:20 Ondansetron HCl (Zofran Inj) 4 mg Q6H PRN IV PUSH NAUSEA OR VOMITING 06/22/17 22:45 Zolpidem Tartrate (Ambien) 5 mg HS PRN PO INSOMNIA 06/22/17 22:45 Albuterol/ Ipratropium (Duoneb Neb) 1 ampule Q2HR NEB PRN INH WHEEZING 06/22/17 22:45 Miscellaneous Information 1 [id number] XX 06/22/17 22:45 Chlorhexidine Gluconate (Chlorhexidine 2% Cloth) 3 pack Taper DAILY@04 TOP 06/23/17 04:00 06/19/18 03:59 Chlorhexidine Gluconate (Chlorhexidine 2% Cloth) 3 pack UNSCH PRN TOP HYGIENIC CARE 06/22/17 22:45 Senna/Docusate Sodium (Sydnee-Colace) 1 tab BID PO 06/23/17 09:00 Magnesium Hydroxide (Milk Of Magnesia Liq) 30 ml Q12H PRN PO MILD - MODERATE CONSTIPATION 06/22/17 22:45 Sennosides (Senokot) 17.2 mg Q12H PRN PO MODERATE - SEVERE CONSTIPATION 06/22/17 22:45 Bisacodyl (Dulcolax Supp) 10 mg DAILY PRN RECTAL SEVERE CONSITIPATION 06/22/17 22:45 Lactulose (Lactulose Liq) 30 ml DAILY PRN PO SEVERE CONSITIPATION 06/22/17 22:45 Pantoprazole Sodium (Protonix Inj) 40 mg Q12H IV PUSH 06/22/17 23:00 Piperacillin Sod/ Tazobactam Sod 50 ml @ 200 mls/hr Q6H IV 06/23/17 04:00 06/23/17 03:19 Norepinephrine Bitartrate 4 mg/ Sodium Chloride 250 ml @ 7.5 mls/hr TITRATE PRN IV Blood pressure management 06/22/17 23:30 Terbutaline Sulfate (Brethine Inj) 1 mg UNSCH PRN SQ For Extravasation 06/22/17 23:30 Vancomycin HCl (VANCOMYCIN for oral use only) 125 mg QID PO 06/23/17 09:00 Pharmacy Profile Note 0 ml @ 0 mls/hr UNSCH OTHER 06/22/17 23:45 Family History Hypertension Social History Denies alcohol, tobacco, or illicit drug abuse Physical Exam Vital Signs Vital Signs Date Time Temp Pulse Resp B/P (MAP) Pulse Ox O2 Delivery O2 Flow Rate FiO2 06/22/17 21:59 96.6 108 18 90/52 06/22/17 20:20 98.3 120 16 108/56 (73) 95 Room Air Physical Exam GENERAL: Elderly female in moderate distress. SKIN: Warm and dry. HEAD: Normocephalic. EYES: No scleral icterus. No injection or drainage. NECK: Supple, trachea midline. No JVD or lymphadenopathy. CARDIOVASCULAR: Regular rate and rhythm without murmurs, gallops, or rubs. RESPIRATORY: Breath sounds equal bilaterally. No accessory muscle use. GASTROINTESTINAL: Abdomen soft, tender in all 4 quadrants, nondistended MUSCULOSKELETAL: No cyanosis, or edema. BACK: Nontender without obvious deformity. NEURO EXAM: GCS: M 6 V 4 E 4 Mental Status: The patient is alert and oriented to person, place, and time with normal speech. Cranial Nerves: Visual acuity intact bilaterally. Visual merino normal in all quadrants. Pupils are round, reactive to light. Extraocular movements are intact without ptosis. Hearing is normal bilaterally. Voice is normal. Tongue protrudes midline and moves symmetrically. Reflexes: Biceps, patellar, and Achilles are 2/4 bilaterally. No clonus. Laboratory Laboratory Tests Test 06/22/17 21:20 06/22/17 21:22 Blood Gas Puncture Site RT FEMORAL Blood Gas Patient Temperature 98.6 Blood Gas HCO3 16 Blood Gas Base Excess -8.6 Blood Gas Oxygen Saturation 94 Arterial Blood pH 7.38 Arterial Blood Partial Pressure CO2 27 Arterial Blood Partial Pressure O2 80 Arterial Blood Oxygen Content 10.1 Arterial Blood Carboxyhemoglobin 0.9 Arterial Blood Methemoglobin 0.7 Blood Gas Hemoglobin 7.5 Oxygen Delivery Device ROOM AIR Blood Gas Inspired Oxygen 21 White Blood Count 2.8 Red Blood Count 2.75 Hemoglobin 8.6 Hematocrit 25.5 Mean Corpuscular Volume 92.7 Mean Corpuscular Hemoglobin 31.1 Mean Corpuscular Hemoglobin Concent 33.5 Red Cell Distribution Width 14.1 Platelet Count 442 Mean Platelet Volume 6.9 CBC Comment AUTO DIFF Differential Total Cells Counted 100 Neutrophils % (Manual) 30 Band Neutrophils % 46 Lymphocytes % 13 Monocytes % 11 Neutrophils # (Manual) 2.1 Differential Comment FINAL DIFF MANUAL Platelet Estimate NORMAL Platelet Morphology Comment CLUMPED Ovalocytes 1+ [place] Cells 1+ Prothrombin Time 13.8 Prothromb Time International Ratio 1.2 Activated Partial Thromboplast Time 35.9 Blood Urea Nitrogen 45 Creatinine 3.22 Random Glucose 71 Total Protein 5.3 Albumin 1.8 Calcium Level 10.1 Alkaline Phosphatase 93 Aspartate Amino Transf (AST/SGOT) 14 Alanine Aminotransferase (ALT/SGPT) 15 Total Bilirubin 0.6 Sodium Level 134 Potassium Level 4.1 Chloride Level 103 Carbon Dioxide Level 17.8 Anion Gap 13 Estimat Glomerular Filtration Rate 14 Lactic Acid Level 4.5 Lipase 34 Date/Time Source Procedure Growth Status 06/22/17 21:22 Blood Peripheral Aerobic Blood Culture Pending Received 06/22/17 21:22 Blood Peripheral Anaerobic Blood Culture Pending Received Result Diagram: 06/22/17212106/22/172121 Caprini VTE Risk Assessment Caprini VTE Risk Assessment: Mod/High Risk (score >= 2) Caprini Risk Assessment Model Point Value = 1 Point Value = 2 Point Value = 3 Point Value = 5 Age 41-60 Minor surgery BMI > 25 kg/m2 Swollen legs Varicose veins or History of unexplained or recurrent spontaneous Oral contraceptives or hormone replacement Sepsis (< 1 month) Serious lung disease, including pneumonia (< 1 month) Abnormal pulmonary function Acute myocardial infarction Congestive heart failure (< 1 month) History of inflammatory bowel disease Medical patient at bed rest Age 61-74 Arthroscopic surgery Major open surgery (> 45 min) Laparoscopic surgery (> 45 min) Malignancy Confined to bed (> 72 hours) Immobilizing plaster cast Central venous access Age >= 75 History of VTE Family history of VTE Factor V Leiden Prothrombin [id number] Lupus anticoagulant Anticardiolipin antibodies Elevated serum homocysteine Heparin-induced thrombocytopenia Other congenital or acquired thrombophilia Stroke (< 1 month) Elective arthroplasty Hip, pelvis, or leg fracture Acute spinal cord injury (< 1 month) Prophylaxis Regimen Total Risk Factor Score Risk Level Prophylaxis Regimen 0-1 Low Early ambulation 2 Moderate Order ONE of the following: *Sequential Compression Device (SCD) *Heparin 5000 units SQ BID 3-4 Higher Order ONE of the following medications: *Heparin 5000 units SQ TID *Enoxaparin/Lovenox 40 mg SQ daily (WT < 150 kg, CrCl > 30 mL/min) *Enoxaparin/Lovenox 30 mg SQ daily (WT < 150 kg, CrCl > 10-29 mL/min) *Enoxaparin/Lovenox 30 mg SQ BID (WT < 150 kg, CrCl > 30 mL/min) AND/OR *Sequential Compression Device (SCD) 5 or more Highest Order ONE of the following medications: *Heparin 5000 units SQ TID (Preferred with Epidurals) *Enoxaparin/Lovenox 40 mg SQ daily (WT < 150 kg, CrCl > 30 mL/min) *Enoxaparin/Lovenox 30 mg SQ daily (WT < 150 kg, CrCl > 10-29 mL/min) *Enoxaparin/Lovenox 30 mg SQ BID (WT < 150 kg, CrCl > 30 mL/min) AND *Sequential Compression Device (SCD) Assessment and Plan Assessment and Plan C. difficile colitis - By mouth vancomycin - Aggressive IV fluid hydration - 027 positive Severe sepsis - Likely due to above - Pancultures - Stop IV antibiotics if cultures negative - Infectious disease evaluation Lactic acidosis - Due to above - Aggressive IV fluid hydration - Monitor trend Acute kidney injury - Dehydration - IV fluid replacement - Strict I's and O's - Monitor trend of electrolytes and creatinine Pseudogout/rheumatoid arthritis - Home dose of Prednisone Hypotension - Volume depleted - Dehydration - Aggressive IV fluid resuscitation DVT GI prophylaxis - Teds SCDs - Subcutaneous heparin - Pantoprazole IV twice a day - questionable gastritis due to indomethacin Critical Care: The total critical care time was 35 minutes. Time to perform other separately billable procedures was not included in the critical care time. Lucian Corey MD Jun 22, 2017 22:40
[2017-06-22] MEDS ORDERED: SENNOSIDES 8.6 MG TAB PO PRN (22:45)
[2017-06-22] MEDS ORDERED: BISACODYL 10 MG SUPP RECTAL PRN (22:45)
[2017-06-22] MEDS ORDERED: RESP: ALBUTEROL 2.5 MG/IPRATROPIUM 0.5 MG NEB (PRN) INH (22:45)
[2017-06-22] MEDS ORDERED: ZOLPIDEM TARTRATE 5 MG TAB PO PRN (22:45)
[2017-06-22] MEDS ORDERED: MORPHINE SULFATE 4 MG/ML INJ IV PUSH PRN (22:45)
[2017-06-22] MEDS ORDERED: SODIUM CHLORIDE 0.9% FLUSH 10 ML FLUSH IV FLUSH PRN (22:45)
[2017-06-22] MEDS ORDERED: ONDANSETRON HCL 4 MG/2 ML VIAL IV PUSH PRN (22:45)
[2017-06-22] MEDS ORDERED: MAGNESIUM HYDROXIDE SUSP 30 ML CUP PO PRN (22:45)
[2017-06-22] MEDS ORDERED: CHLORHEXIDINE GLUCONATE 2 % 1 PACK (2 CLOTHS) TOP PRN (22:45)
[2017-06-22] MEDS ORDERED: LORazepam 2 MG TAB PO PRN (22:45)
[2017-06-22] MEDS ORDERED: LACTULOSE SYRUP 20 GM/30 ML CUP PO PRN (22:45)
[2017-06-22] MEDS ORDERED: MISCELLANEOUS NURSING INFORMATION XX SCH (22:45)
[2017-06-22] MEDS ORDERED: ACETAMINOPHEN 325 MG TAB PO PRN (22:45)
[2017-06-22] MEDS: PANTOPRAZOLE SODIUM 40 MG VIAL IV PUSH SCH (23:00)
--- NOTE | 2017-06-22 23:02 | RADRPT ---
EXAM DATE/TIME: 06/22/2017 22:49 [place] COMPARISON: No previous studies available for comparison. INDICATIONS : General weakness and diarrhea. ORAL CONTRAST: No oral contrast ingested. RADIATION DOSE: 5.12 CTDIvol (mGy) MEDICAL HISTORY : Cardiovascular disease. Renal failure. SURGICAL HISTORY : None. ENCOUNTER: Initial ACUITY: 1 day PAIN SCALE: 0/10 LOCATION: Bilateral abdomen TECHNIQUE: Volumetric scanning of the abdomen and pelvis was performed. Using automated exposure control and ad justment of the mA and/or kV according to patient size, radiation dose was kept as low as reasonably achievable to obtain optimal diagnostic quality images. DICOM format image data is available electro nically for review and comparison. FINDINGS: Lung bases demonstrate some dependent atelectasis. Small hiatal hernia. No acute findings in the liver, spleen, adrenals, kidneys or pancreas. No calcified gallstones. There is some mild mural thickening of the colon extending to the rectum with some mild pericolonic f at stranding noted especially on the left side most characteristic of a mild colitis. No significant free fluid. No free air. No bowel obstruction. Fatty catheter in bladder. No acute bon y abnormalities. CONCLUSION: 1. Mild mural thickening of the colon with mild pericolonic fat stranding most characteristic of a co litis. No obstruction, free fluid or free air. Danny Johns MD on June 22, 2017 at 22:56 Board Certified Radiologist. This report was verified electronically.
--- NOTE | 2017-06-22 23:04 | PD ---
Data Data Last Documented VS Vital Signs Date Time Temp Pulse Resp B/P (MAP) Pulse Ox O2 Delivery O2 Flow Rate FiO2 06/22/17 21:59 96.6 108 18 90/52 06/22/17 20:20 95 Room Air Orders Orders Complete Blood Count With Diff (06/22/17 21:07) Comprehensive Metabolic Panel (06/22/17 21:07) Lipase (06/22/17 21:07) Lactic Acid (06/22/17 21:07) Prothrombin Time / Inr (Pt) (06/22/17 21:07) Act Partial Throm Time (Ptt) (06/22/17 21:07) Urinalysis - C+S If Indicated (06/22/17 21:07) Iv Access Insert/Monitor (06/22/17 21:07) Ecg Monitoring (06/22/17 21:07) Oximetry (06/22/17 21:07) Sodium Chlor 0.9% 1000 Ml Inj (Ns 1000 M (06/22/17 21:07) Electrocardiogram (06/22/17 21:07) Type And Screen (06/22/17 21:07) Blood Culture (06/22/17 21:09) C Diff Toxin Pcr (06/22/17 21:09) Sodium Chlor 0.9% 1000 Ml Inj (Ns 1000 M (06/22/17 21:09) Sodium Chlor 0.9% 1000 Ml Inj (Ns 1000 M (06/22/17 21:09) Ct Abd/Pel W/O Iv Contrast (06/22/17 ) Sodium Chloride 0.9... W/Pantoprazole In (06/22/17 21:15) Sodium Chloride 0.9... W/Pantoprazole In (06/22/17 21:15) Red Blood Cells (Rbc) (06/22/17 21:15) Arterial Blood Gas (Abg) (06/22/17 ) Urinary Catheter Insert/Apply (06/22/17 21:32) Blood Product Administration (06/22/17 21:32) Norepinephrine-Dextrose Drip (Levophed-D (06/22/17 21:45) Terbutaline Inj (Brethine Inj) (06/22/17 21:45) Vancomycin Inj (Vancomycin Inj) (06/22/17 21:32) Piperacil-Tazo 4.5 Gm Premix (Zosyn 4.5 (06/22/17 21:32) Sodium Chlor 0.9% 1000 Ml Inj (Ns 1000 M (06/22/17 22:30) Warming [place] / Warming Syst PRN (06/22/17 22:28) Admit Order (Ed Use Only) (06/22/17 22:35) Labs Laboratory Tests Test 06/22/17 21:20 06/22/17 21:22 Blood Gas Puncture Site RT FEMORAL Blood Gas Patient Temperature 98.6 Blood Gas HCO3 16 mmol/L Blood Gas Base Excess -8.6 mmol/L Blood Gas Oxygen Saturation 94 % Arterial Blood pH 7.38 Arterial Blood Partial Pressure CO2 27 mmHg Arterial Blood Partial Pressure O2 80 mmHG Arterial Blood Oxygen Content 10.1 Vol % Arterial Blood Carboxyhemoglobin 0.9 % Arterial Blood Methemoglobin 0.7 % Blood Gas Hemoglobin 7.5 G/DL Oxygen Delivery Device ROOM AIR Blood Gas Inspired Oxygen 21 % White Blood Count 2.8 TH/MM3 Red Blood Count 2.75 MIL/MM3 Hemoglobin 8.6 GM/DL Hematocrit 25.5 % Mean Corpuscular Volume 92.7 FL Mean Corpuscular Hemoglobin 31.1 PG Mean Corpuscular Hemoglobin Concent 33.5 % Red Cell Distribution Width 14.1 % Platelet Count 442 TH/MM3 Mean Platelet Volume 6.9 FL CBC Comment AUTO DIFF Differential Total Cells Counted 100 Neutrophils % (Manual) 30 % Band Neutrophils % 46 % Lymphocytes % 13 % Monocytes % 11 % Neutrophils # (Manual) 2.1 TH/MM3 Differential Comment FINAL DIFF MANUAL Platelet Estimate NORMAL Platelet Morphology Comment CLUMPED Ovalocytes 1+ Lis Cells 1+ Prothrombin Time 13.8 SEC Prothromb Time International Ratio 1.2 RATIO Activated Partial Thromboplast Time 35.9 SEC Blood Urea Nitrogen 45 MG/DL Creatinine 3.22 MG/DL Random Glucose 71 MG/DL Total Protein 5.3 GM/DL Albumin 1.8 GM/DL Calcium Level 10.1 MG/DL Alkaline Phosphatase 93 U/L Aspartate Amino Transf (AST/SGOT) 14 U/L Alanine Aminotransferase (ALT/SGPT) 15 U/L Total Bilirubin 0.6 MG/DL Sodium Level 134 MEQ/L Potassium Level 4.1 MEQ/L Chloride Level 103 MEQ/L Carbon Dioxide Level 17.8 MEQ/L Anion Gap 13 MEQ/L Estimat Glomerular Filtration Rate 14 ML/MIN Lactic Acid Level 4.5 mmol/L Lipase 34 U/L [facility] Supervised Visit with TROY: Yes Narrative Course The history, exam, and medical decision-making in the associated mid-level provider note were completed with my assistance. I reviewed and agree with the findings presented. I attest that I had a [id number] encounter with the patient on the same day, and personally performed and documented my assessment and findings in the medical record. 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 She received broad-spectrum antibiotics for concern for septic arthritis. She was also placed on indomethacin. She's currently on steroids for rheumatoid arthritis. She apparently is been over the past several days of copious watery diarrhea, dark in color, with progressive weakness. Today she went get out of the chair. When she arrived she was hypotensive ill-appearing. Concern was for sepsis versus C. difficile versus GI bleed. She had positive stools and a low hemoglobin on her blood gas. She was given 1 unit of emergency release blood. Pressors were ordered. She was given 3 L of normal saline. She has some abdominal tenderness. She appeared critically ill. Resuscitation was continued and she improved some. White count slow with significant bandemia. Still subacute renal injury. Strong concern for infection, sepsis, possibly C. difficile. She'll be admitted to the ICU for close monitoring. Critical Care Narrative Aggregate critical care time was 30 minutes. Time to perform other separately billable procedures was not included in the critical care time. My time did not include minutes spent treating any other patients simultaneously or on activities that did not directly contribute to the patient's treatment. The services I provided to this patient were to treat and/or prevent clinically significant deterioration that could result in: , disability, unrecognized infection, recommends GI bleed, other. I provided critical care services requiring my management, as noted below: Chart data review, documentation time, medication orders and management, vital sign assessments/reviewing monitor data, ordering and reviewing lab tests, ordering and interpreting/reviewing x-rays and diagnostic studies, care of the patient and discussion of the patient with the admitting physicians. Diagnosis Primary Impression: Septic shock Additional Impressions: Lactic acid acidosis Acute on chronic kidney failure Qualified Codes: N17.9 - Acute kidney failure, unspecified; N18.9 - Chronic kidney disease, unspecified Diarrhea in adult patient Miguel Beckford MD Jun 22, 2017 23:04
[2017-06-22] MEDS ORDERED: VANCOMYCIN INJ 1,000 MG in SODIUM CHLOR 0.9% 250 ML INJ 250 ML IV SCH (23:30)
[2017-06-22] MEDS ORDERED: Vancomycin Consult Pharmacy 1 EA OTHER SCH (23:45)
[2017-06-23] VITALS (15 sets, daily range): BP systolic 84–126; BP diastolic 53–84; PULSE 111–142; RESP 16–30; TEMP 96.4–99.3; O2SAT 95–100
[2017-06-23] MEDS: SODIUM CHLOR 0.9% 1000 ML INJ 1,000 ML IV SCH ×5 (00:44→10:14)
[2017-06-23 01:15] LABS: BACTERIA, URINE MOD /hpf; BLOOD, URINE NEG (NEG); GLUCOSE,URINE NEG (NEG); KETONE, URINE NEG (NEG); NITRITE,URINE NEG (NEG); SQUAMOUS EPITHELIAL CELL URINE <1 /hpf (0-5); URINE COLOR YELLOW (YELLW/STRAW)
[2017-06-23 01:17] LABS: COMMENT (UR) CULTURE INDICATED; CULTURE IF INDICATED CULTURE INDICATED
[2017-06-23] MEDS: CHLORHEXIDINE GLUCONATE 2 % 1 PACK (2 CLOTHS) TOP SCH (01:58)
[2017-06-23 03:17] LABS: C. DIFF EPI 027 PRESUMPTIVE POSITIVE (NEGATIVE)
[2017-06-23] MEDS: PIPERACIL-TAZO 3.375 GM PREMIX 50 ML IV SCH ×2 (03:19→09:05)
[2017-06-23 04:18] LABS: AUTOMATED NEUTROPHIL # 4.6 TH/MM3 (1.8-7.7); BASOPHIL % 0.1 % (0.0-2.0); EOSINOPHIL # 0.1 TH/MM3 (0-0.4); EOSINOPHIL % 1.2 % (0.0-4.0); HEMATOCRIT 32.1 % (35.0-46.0); LYMPH % 6.4 % (9.0-44.0); LYMPHOCYTE # 0.3 TH/MM3 (1.0-4.8); MEAN CELL VOLUME 93.6 FL (80.0-100.0); MEAN CORPUSCULAR HEMOGLOBIN 31.2 PG (27.0-34.0); MEAN CORPUSCULAR HGB CONC 33.3 % (32.0-36.0); MONO % 5.7 % (0.0-8.0); NEUT % 86.6 % (16.0-70.0); PLATELET COUNT 397 TH/MM3 (150-450); RED BLOOD COUNT 3.43 MIL/MM3 (4.00-5.30); RED CELL DISTRIBUTION WIDTH 14.3 % (11.6-17.2); WHITE BLOOD COUNT 5.4 TH/MM3 (4.0-11.0)
[2017-06-23 04:40] LABS: ALKALINE PHOSPHATASE 103 U/L (45-117); ALT (GPT) 67 U/L (10-53); ANION GAP 11 MEQ/L (5-15); AST (GOT) 100 U/L (15-37); BICARBONATE 15.7 MEQ/L (21.0-32.0); BLOOD UREA NITROGEN 41 MG/DL (7-18); CHLORIDE 112 MEQ/L (98-107); GLOMERULAR FILTRATION RATE 19 ML/MIN (>89); MAGNESIUM 1.8 MG/DL (1.5-2.5); POTASSIUM 4.2 MEQ/L (3.5-5.1); SODIUM (NA) 139 MEQ/L (136-145); TOTAL BILIRUBIN ADULT 1.1 MG/DL (0.2-1.0)
[2017-06-23 04:41] LABS: HEMO FLAGS AUTO DIFF
[2017-06-23 05:40] LABS: BANDS 34 % (0-6); BURR CELLS 2+ (NORMAL); KERATOCYTES 1+ (NORMAL); METAMYELOCYTES 10 % (0-1); NEUTROPHIL # MANUAL DIFF 4.8 TH/MM3 (1.8-7.7); OVALOCYTES 1+ (NORMAL); POLYS (SEG NEUTROPHILS) 45 % (16-70); WBC DIFF SAMPLE 100
[2017-06-23 05:41] LABS: PLATELET ESTIMATE SMEAR NORMAL (NORMAL); PLATELET MORPHOLOGY NORMAL (NORMAL); SCAN/DIFF FINAL DIFF MANUAL
[2017-06-23 05:42] LABS: TOXIC GRANULATION 1+ (NORMAL)
[2017-06-23 05:43] LABS: TOXIC VACUOLATION PRESENT (NONE SEEN)
--- NOTE | 2017-06-23 07:07 | EKG ---
Date Performed: 06/22/2017 Time Performed: 21:11:01 PTAGE: 72 years EKG: SINUS TACHYCARDIA ABNORMAL RHYTHM ECG PREVIOUS TRACING : 06/14/2017 05.51 Compared to previous tracing, PVCs are no longer present. DOCTOR: Javy Hernandes Interpretating Date/Time 06/23/2017 07:06:03
[2017-06-23] MEDS: PANTOPRAZOLE INJ 80 MG in SODIUM CHLORIDE 0.9% INJ 100 ML IV SCH ×2 (08:02→17:33)
[2017-06-23] MEDS ORDERED: NON-FORMULARY DRUG (Fish Oil-Cholecalciferol (Fish Oil + D3) 1 CAP) PO SCH (09:00)
[2017-06-23] MEDS ORDERED: VITAMIN B COMPLEX/VIT C TAB PO SCH (09:00)
[2017-06-23] MEDS ORDERED: predniSONE 10 MG TAB PO SCH (09:00)
[2017-06-23] MEDS: DOCUSATE SODIUM 50 MG/SENNA 8.6 MG TAB PO SCH ×2 (09:00→20:16)
[2017-06-23] MEDS ORDERED: SERTRALINE HCL 50 MG TAB PO SCH (09:00)
[2017-06-23] MEDS ORDERED: FAMOTIDINE 20 MG/2 ML VIAL IV PUSH SCH (09:00)
[2017-06-23] MEDS: VANCOMYCIN 500 MG VIAL (FOR ORAL USE ONLY) PO SCH ×4 (09:05→20:16)
[2017-06-23] MEDS: SODIUM CHLORIDE 0.9% FLUSH 10 ML FLUSH IV FLUSH SCH ×2 (09:05→20:15)
[2017-06-23] MEDS: PANTOPRAZOLE SODIUM 40 MG VIAL IV PUSH SCH ×2 (10:16→22:07)
[2017-06-23 11:26] LABS: BLOOD GAS BASE EXCESS -16.6 mmol/L (-2-2); BLOOD GAS CARBOXYHEMOGLOBIN 0.5 % (0-4); BLOOD GAS HCO3 10 mmol/L (22-26); BLOOD GAS O2 HGB SATURATION 93 % (90-100); BLOOD GAS OXYGEN CONTENT 16.3 Vol % (12.0-20.0); BLOOD GAS PCO2 26 mmHg (38-42); BLOOD GAS PO2 86 mmHg (61-120); BLOOD GAS TOTAL HGB 12.4 G/DL (12.0-16.0); TEMP CORR TO 98.6
[2017-06-23 11:27] LABS: CRITICAL VALUE YES; DRAW SITE LT RADIAL; LITER FLOW 3.5 L/M; NUMBER OF ARTERIAL PUNCTURES 1; OXYGEN DEVICE NASAL CANNULA; STAT YES; ULNAR PULSE PRESENT
[2017-06-23] MEDS ORDERED: ROCURONIUM INJ 50 MG/5 ML VIAL IV ONE (11:45)
[2017-06-23] MEDS ORDERED: ETOMIDATE 20 MG/10 ML VIAL IV PUSH ONE (11:45)
[2017-06-23] MEDS ORDERED: MIDAZOLAM HCL 5 MG/5 ML VIAL IV PUSH ONE (11:45)
[2017-06-23] MEDS: metroNIDAZOLE 500 MG INJ 100 ML IV SCH ×2 (11:52→20:15)
[2017-06-23] MEDS ORDERED: SODIUM BICARBONATE 8.4% INJ 50 MEQ/50 ML SYR IV PUSH ONE ×3 (12:00→20:15)
[2017-06-23] MEDS ORDERED: ALBUMIN HUMAN 25% 12.5 GM/50 ML BAGP IV ONE (12:18)
--- NOTE | 2017-06-23 12:59 | HHI.CCPN ---
Subjective Remarks/Hospital Course 72-year-old female presents for evaluation of generalized weakness and diarrhea for the past 5 days. Today she became more confused and she has been unable to ambulate without assistance. She feels dizzy and lightheaded. She has abdominal discomfort. She denies any chest pain or shortness of breath. She has been having watery diarrhea for loss 5 days. She was released from the hospital on the 14 of June after treatment of pseudogout. She was admitted secondary to possible septic joint which she was not found to have this. She complains on severe abdominal pain and admits that her stool is usually liquidly but no blood or melena. She was started on indomethacin for treatment of pseudogout. Per she's been more confused today. Confusion and weakness started about 3 days ago. The CAT scan of the abdomen performed in the emergency department confirmed bowel wall thickening consistent with colitis and her stool is positive for C. difficile. SUBJ 06/24/17: Critically ill confused, hypotensive on 2 mcg/m of Levophed. Oliguric urine output only 60 ML in last 4 hours. Patient is AO 1 and somnolent. Stat ABG showed a pH of 7.2, PCO2 of 26 PO2 of 86 with a base excess of -17. Due to severe metabolic acidosis and worsening mentation, patient will be intubated and placed on mechanical ventilation Objective Vital Signs Date Time Temp Pulse Resp B/P (MAP) Pulse Ox O2 Delivery O2 Flow Rate FiO2 06/23/17 12:38 99 40 06/23/17 09:17 Nasal Cannula 3.00 06/23/17 08:00 120 06/23/17 04:00 98.2 26 91/59 (70) Intake and Output 06/23/17 06/23/17 06/24/17 08:00 16:00 00:00 Intake Total 2000 ml 1050 ml Output Total 300 ml Balance 1700 ml 1050 ml Result Diagram: 06/23/17 0342 06/23/17 0342 Other Results Laboratory Tests Test 06/22/17 21:20 06/23/17 11:06 Blood Gas Puncture Site RT FEMORAL LT RADIAL Blood Gas Patient Temperature 98.6 98.6 Blood Gas HCO3 16 mmol/L (22-26) 10 mmol/L (22-26) Blood Gas Base Excess -8.6 mmol/L (-2-2) -16.6 mmol/L (-2-2) Blood Gas Oxygen Saturation 94 % (90-100) 93 % (90-100) Arterial Blood pH 7.38 (7.380-7.420) 7.21 (7.380-7.420) Arterial Blood Partial Pressure CO2 27 mmHg (38-42) 26 mmHg (38-42) Arterial Blood Partial Pressure O2 80 mmHG (61-120) 86 mmHg (61-120) Arterial Blood Oxygen Content 10.1 Vol % (12.0-20.0) 16.3 Vol % (12.0-20.0) Arterial Blood Carboxyhemoglobin 0.9 % (0-4) 0.5 % (0-4) Arterial Blood Methemoglobin 0.7 % (0-2) 1.0 % (0-2) Blood Gas Hemoglobin 7.5 G/DL (12.0-16.0) 12.4 G/DL (12.0-16.0) Oxygen Delivery Device ROOM AIR NASAL CANNULA Blood Gas Inspired Oxygen 21 % Blood Gas Liter Flow 3.5 L/M Objective Remarks GENERAL: Elderly female in moderate, to severe distress. Somnolent, lethargic SKIN: Warm and dry. HEAD: Normocephalic. EYES: No scleral icterus. No injection or drainage. NECK: Supple, trachea midline. No JVD or lymphadenopathy. CARDIOVASCULAR: Tachycardic rate and rhythm without murmurs, gallops, or rubs. Hypotensive on Levophed RESPIRATORY: Breath sounds equal bilaterally. No accessory muscle use. GASTROINTESTINAL: Abdomen soft, tender diffusely and mildly distended MUSCULOSKELETAL: No cyanosis, or edema. BACK: Nontender without obvious deformity. NEURO EXAM: Patient is somnolent but wakes up easily oriented to person only moves all extremities spontaneously Urinary Catheter: Yes Assessment to: Continue A/P Assessment and Plan A/P Neuro: Acute metabolic encephalopathy - Postintubation place patient on Versed infusion - When necessary fentanyl if needed CVS: Septic shock Tachycardia Lactic acidosis - Received total of 7 L crystalloid since admission - Additional 1 L fluid bolus - Levophed to keep map above 65 - Repeat lactic acid and trend if high - Check central venous gas after central line placement RESP Acute respiratory failure Severe metabolic acidosis - Intubated for severe metabolic acidosis and respiratory failure, encephalopathy - Assist-control mechanical ventilation, ventilator bundle - DuoNeb every 6 hours scheduled and when necessary - No ventilator weaning until septic shock is improved GI/ID Septic shock Severe C. difficile colitis - Clinically patient has severe C. difficile colitis - 027 positive - Continue By mouth vancomycin, and IV Flagyl - Aggressive IV fluid hydration - ID following GI Consulted - Colorectal surgery evaluation if not improving : Acute kidney injury - Dehydration, continue aggressive IV resuscitation - Strict I's and O's - Monitor trend of electrolytes and creatinine MSK: Pseudogout/rheumatoid arthritis - Home dose of Prednisone 10 mg daily-hold - Start hydrocortisone 100 mg IV every 8 hours ENDO: - Electrolyte replacement per protocol DVT GI prophylaxis - JACQUELIN/SCDs - Subcutaneous heparin - Pantoprazole IV twice a day - questionable gastritis due to indomethacin Critical Care: The total critical care time was 78 minutes excluding procedures. Time to perform other separately billable procedures was not included in the critical care time. Daysi Chand MD Jun 23, 2017 12:59
[2017-06-23] MEDS ORDERED: metroNIDAZOLE 500 MG INJ 100 ML IV SCH (13:00)
[2017-06-23] MEDS ORDERED: MIDAZOLAM 100 MG/100 ML INJ 100 ML IV PRN (13:00)
--- NOTE | 2017-06-23 13:02 | OTSOAPIP ---
TIME SESSION COMPLETED: 1230 TREATMENT TIME: 0 MINS. CHART REVIEWED. INTERDISCIPLINARY COMMUNICATION: PATIENT UNDERWENT CHANGE IN MEDICALLY STATUS POST REHAB ORDERS. PATIENT WAS REQUIRED TO BE INTUBATED DUE TO RESPIRATORY DISTRESS. PATIENT WILL REQUIRE RESTART ORDERS, NURSING WAS INFORMED. PLAN: OCCUPATIONAL THERAPY SIGNING OFF AND WILL AWAIT RESTART ORDERS Therapist: MARYANN SHANNON OTR/Shira Signature on file
--- NOTE | 2017-06-23 13:26 | PD.PROCEDR ---
Procedure Note Procedure Emergency intubation for severe septic shock metabolic acidosis and respiratory failure: INTUBATION: The patient was put in optimal position for the procedure. Rapid sequence intubation was initiated by me using 20 milligrams of etomidate IV and 5 milligrams of Versed IV. Rocuronium 50 mg IV x1. The patient was intubated with a 8 cuffed endotracheal tube. Tube placement was confirmed by visualization of the tube and balloon passing through the cords, capnometry and subsequent chest x-ray. Breath sounds were equal and well aerated bilaterally postintubation. No breath sounds over stomach. Patient tolerated procedure well. Daysi Chand MD Jun 23, 2017 13:26
--- NOTE | 2017-06-23 13:33 | RADRPT ---
EXAM DATE/TIME: 06/23/2017 12:55 [facility] COMPARISON: No previous studies available for comparison. INDICATIONS : Post intubation and central line placement. MEDICAL HISTORY : Cardiovascular disease. Renal failure. SURGICAL HISTORY : None. ENCOUNTER: Subsequent ACUITY: 2 days PAIN SCORE: Non-responsive. LOCATION: Bilateral chest FINDINGS: A single view of the chest demonstrates the interval placement of an endotracheal tube with its tip o verlying the right bronchus. It needs to be retracted. There is a left IJ central line in good positi on. Mild perihilar vascular congestion. No visible pneumothorax.. Osseous structures are intact. CONCLUSION: Endotracheal tube is slightly advanced into the right main bronchus, needs to be retracted Miguel Ball MD on June 23, 2017 at 13:31 Board Certified Radiologist. This report was verified electronically.
[2017-06-23 13:38] LABS: BLOOD GAS BASE EXCESS -16.7 mmol/L (-2-2); BLOOD GAS CARBOXYHEMOGLOBIN 0.3 % (0-4); BLOOD GAS HCO3 10 mmol/L (22-26); BLOOD GAS METHEMOGLOBIN 0.6 % (0-2); BLOOD GAS O2 HGB SATURATION 97 % (90-100); BLOOD GAS OXYGEN CONTENT 18.8 Vol % (12.0-20.0); BLOOD GAS PCO2 24 mmHg (38-42); BLOOD GAS PO2 131 mmHG (61-120); BLOOD GAS TOTAL HGB 13.7 G/DL (12.0-16.0); TEMP CORR TO 98.6
[2017-06-23 13:40] LABS: CRITICAL VALUE YES; OXYGEN DEVICE VENTILATOR
[2017-06-23 13:41] LABS: DRAW SITE LT RADIAL; FIO2 40 %; NUMBER OF ARTERIAL PUNCTURES 1; STAT YES; ULNAR PULSE PRESENT; VENT SETTINGS PRVC/16/500/1.0/+5
[2017-06-23 13:42] LABS: BLOOD GAS VENOUS BASE EXCESS -16.3 mmol/L (-2-2); BLOOD GAS VENOUS HCO3 10 mmol/L (22-26); BLOOD GAS VENOUS O2 CONTENT 8.3 Vol % (9.0-17.0); BLOOD GAS VENOUS O2 HGB SAT 84 % (70-76); BLOOD GAS VENOUS PCO2 27 mmHg (44-48); BLOOD GAS VENOUS PO2 56 mmHg (35-40); CRITICAL VALUE YES; FIO2 40 %; OXYGEN DEVICE VENTILATOR; TEMP CORR TO 98.6; VENT SETTINGS PRVC/16/500/1.0/+5
[2017-06-23 13:43] LABS: DRAW SITE CENTRAL LINE; STAT YES
--- NOTE | 2017-06-23 13:53 | PD.ID.CON ---
History of Present Illness Service ID Consult Requested By Dr Corey Reason for Consult C.diff Primary Care Physician No Primary Care Physician Diagnoses: History of Present Illness Known to me 72 yo female unable to provide history Presente yday with generalized weakness and watery diarrhea for the past 5 days. Per chart also co dizzyness and lightheadedness, abdominal discomfort. She says that she has no chest pain or shortness of breath. She has a recent abx exposure She was seen 10 days ago for wrist pain, suspected septic joint Wrist synovial fluid was aspiratid and abx were stopped after synovial fluid and blood clx came back negative Pt is admitted to ICU and was seen by me around 1000 in room 1311 She was tachycardia and mildly hypotensi ve and was started on small dose of Levaqphed UOP was marginal Had 2 large watery BMs UA is unremarkable Blood and urine clx negative @ 1 day C.diff + for 027 strain On presentation afebrile, WBC low, 2.8K, but bands are in 30s-40 s range Pt also presente d in ARF Review of Systems ROS Limitations: Clinical Condition, Altered Mental Status (obtunded) Past Family Social History Allergies: Coded Allergies: No Known Allergies (Unverified , 06/12/17) Past Medical History Rheumatoid arthritis Chronic kidney disease stage III CLBP 2/2 Degenerative disc disease/spinal stenosis Past Surgical History Bilateral carpal tunnel release Cataract surgery Teeth extraction Right bunionectomy Active Ordered Medications Medications where reviewed in EMR Antibiotics Include: zosyn vanco IV vanco PO flagyl iv Family History HTN Social History No Tobacco. No ETOH. No Illicit Drugs. Physical Exam Vital Signs Vital Signs Date Time Temp Pulse Resp B/P (MAP) Pulse Ox O2 Delivery O2 Flow Rate FiO2 06/23/17 12:38 99 40 06/23/17 12:00 128 06/23/17 09:17 96 Nasal Cannula 3.00 06/23/17 08:00 120 06/23/17 07:00 95 Nasal Cannula 2.00 06/23/17 06:00 123 06/23/17 04:00 122 06/23/17 04:00 98.2 122 26 91/59 (70) 95 06/23/17 03:25 22 06/23/17 02:00 97.7 120 20 87/55 (66) 95 06/23/17 02:00 Nasal Cannula 2.00 06/23/17 00:00 96.4 111 20 84/53 (63) 96 Nasal Cannula 2.00 06/22/17 23:34 99 Nasal Cannula 2.00 06/22/17 23:32 96.4 06/22/17 23:12 99 Nasal Cannula 2.00 06/22/17 23:00 102 18 82/51 (61) 97 Nasal Cannula 2.00 06/22/17 22:22 109 20 82/57 (65) 97 2.00 06/22/17 22:16 111 20 88/51 (63) 94 Nasal Cannula 2.00 06/22/17 22:05 111 18 88/51 (63) 2.00 06/22/17 22:00 96.4 105 18 96/51 (66) Nasal Cannula 2.00 06/22/17 21:59 96.6 108 18 90/52 06/22/17 21:57 96.4 103 90/52 (65) 06/22/17 21:50 96.1 104 22 102/61 (75) Nasal Cannula 2.00 06/22/17 21:45 105 101/57 (72) 06/22/17 21:40 105 105/55 (72) 06/22/17 21:35 95 84/53 (63) 06/22/17 21:30 93 70/48 (55) 06/22/17 21:28 85 69/48 (55) 06/22/17 21:24 93 68/45 (53) 06/22/17 21:23 93 22 59/43 (48) 06/22/17 21:02 104 22 62/41 (48) 06/22/17 21:00 104 65/40 (48) 06/22/17 20:20 98.3 120 16 108/56 (73) 95 Room Air Physical Exam CONSTITUTIONAL/GENERAL: This is an adequately nourished patient, in no apparent distress. TUBES/LINES/DRAINS: SKIN: No jaundice, rashes, or lesions. Skin temperature appropriate. Not diaphoretic. HEAD: Atraumatic. Normocephalic. EYES: Pupils equal and round and reactive. Extraocular motions intact. No scleral icterus. No injection or drainage. Fundi not examined. ENT: Hearing grossly normal. Nose without bleeding or purulent drainage. Dry mucosae NECK: Trachea midline. Supple, nontender. CARDIOVASCULAR: Regular rate and rhythm without murmurs, gallops, or rubs. No JVD. Peripheral pulses symmetric. RESPIRATORY/CHEST: Symmetric, unlabored respirations. Clear to auscultation. Breath sounds equal bilaterally. No wheezes, rales, or rhonchi. GASTROINTESTINAL: Abdomen soft, diffusely tender, moderately to markedly distended. No hepato-splenomegaly, or palpable masses. No guarding. Bowel sounds present. GENITOURINARY: Without palpable bladder distension. Ge catheter in place with small amount of cloudy moses coloured urine MUSCULOSKELETAL: Extremities without clubbing, cyanosis, or edema. No joint tenderness or effusion noted. No calf tenderness. No mottling or clubbing. LYMPHATICS: No palpable cervical or supraclavicular adenopathy. NEUROLOGICAL: Very lethargic, almost obtunded Motor and sensory grossly within normal limits. Follows commands. Speech incoherent Moves all extremities. PSYCHIATRIC: No obvious anxiety/depression. no apparent hallucinations or other psychotic thought process. Laboratory Laboratory Tests Test 06/22/17 21:20 06/22/17 21:22 06/22/17 23:21 06/22/17 23:59 Blood Gas Puncture Site RT FEMORAL Blood Gas Patient Temperature 98.6 Blood Gas HCO3 16 Blood Gas Base Excess -8.6 Blood Gas Oxygen Saturation 94 Arterial Blood pH 7.38 Arterial Blood Partial Pressure CO2 27 Arterial Blood Partial Pressure O2 80 Arterial Blood Oxygen Content 10.1 Arterial Blood Carboxyhemoglobin 0.9 Arterial Blood Methemoglobin 0.7 Blood Gas Hemoglobin 7.5 Oxygen Delivery Device ROOM AIR Blood Gas Inspired Oxygen 21 White Blood Count 2.8 Red Blood Count 2.75 Hemoglobin 8.6 Hematocrit 25.5 Mean Corpuscular Volume 92.7 Mean Corpuscular Hemoglobin 31.1 Mean Corpuscular Hemoglobin Concent 33.5 Red Cell Distribution Width 14.1 Platelet Count 442 Mean Platelet Volume 6.9 CBC Comment AUTO DIFF Differential Total Cells Counted 100 Neutrophils % (Manual) 30 Band Neutrophils % 46 Lymphocytes % 13 Monocytes % 11 Neutrophils # (Manual) 2.1 Differential Comment FINAL DIFF MANUAL Platelet Estimate NORMAL Platelet Morphology Comment CLUMPED Ovalocytes 1+ Lis Cells 1+ Prothrombin Time 13.8 Prothromb Time International Ratio 1.2 Activated Partial Thromboplast Time 35.9 Blood Urea Nitrogen 45 Creatinine 3.22 Random Glucose 71 Total Protein 5.3 Albumin 1.8 Calcium Level 10.1 Alkaline Phosphatase 93 Aspartate Amino Transf (AST/SGOT) 14 Alanine Aminotransferase (ALT/SGPT) 15 Total Bilirubin 0.6 Sodium Level 134 Potassium Level 4.1 Chloride Level 103 Carbon Dioxide Level 17.8 Anion Gap 13 Estimat Glomerular Filtration Rate 14 Lactic Acid Level 4.5 3.6 Lipase 34 Urine Color YELLOW Urine Turbidity HAZY Urine pH 5.0 Urine Specific [place] 1.018 Urine Protein 30 Urine Glucose (UA) NEG Urine Ketones NEG Urine Occult Blood NEG Urine Nitrite NEG Urine Bilirubin NEG Urine Urobilinogen LESS THAN 2.0 Urine Leukocyte Esterase NEG Urine RBC 3 Urine WBC 4 Urine Squamous Epithelial Cells <1 Urine Amorphous Sediment RARE Urine Bacteria MOD Microscopic Urinalysis Comment CULTURE INDICATED Stool C. difficile Toxin (PCR) POSITIVE Stl C. difficile Toxin Epiderm 027 PRESUMPTIVE POSITIVE Test 06/23/17 01:40 06/23/17 03:42 06/23/17 11:06 Nasal Screen MRSA (PCR) MRSA NOT DETECTED White Blood Count 5.4 Red Blood Count 3.43 Hemoglobin 10.7 Hematocrit 32.1 Mean Corpuscular Volume 93.6 Mean Corpuscular Hemoglobin 31.2 Mean Corpuscular Hemoglobin Concent 33.3 Red Cell Distribution Width 14.3 Platelet Count 397 Mean Platelet Volume 6.7 Neutrophils (%) (Auto) 86.6 Lymphocytes (%) (Auto) 6.4 Monocytes (%) (Auto) 5.7 Eosinophils (%) (Auto) 1.2 Basophils (%) (Auto) 0.1 Neutrophils # (Auto) 4.6 Lymphocytes # (Auto) 0.3 Monocytes # (Auto) 0.3 Eosinophils # (Auto) 0.1 Basophils # (Auto) 0.0 CBC Comment AUTO DIFF Differential Total Cells Counted 100 Neutrophils % (Manual) 45 Band Neutrophils % 34 Lymphocytes % 6 Monocytes % 5 Neutrophils # (Manual) 4.8 Metamyelocytes 10 Differential Comment FINAL DIFF MANUAL Toxic Granulation 1+ Toxic Vacuolation PRESENT Platelet Estimate NORMAL Platelet Morphology Comment NORMAL Ovalocytes 1+ Lis Cells 2+ Keratocytes 1+ Blood Urea Nitrogen 41 Creatinine 2.54 Random Glucose 86 Total Protein 5.0 Albumin 1.7 Calcium Level 8.3 Phosphorus Level 4.5 Magnesium Level 1.8 Alkaline Phosphatase 103 Aspartate Amino Transf (AST/SGOT) 100 Alanine Aminotransferase (ALT/SGPT) 67 Total Bilirubin 1.1 Sodium Level 139 Potassium Level 4.2 Chloride Level 112 Carbon Dioxide Level 15.7 Anion Gap 11 Estimat Glomerular Filtration Rate 19 Blood Gas Puncture Site LT RADIAL Blood Gas Patient Temperature 98.6 Blood Gas HCO3 10 Blood Gas Base Excess -16.6 Blood Gas Oxygen Saturation 93 Arterial Blood pH 7.21 Arterial Blood Partial Pressure CO2 26 Arterial Blood Partial Pressure O2 86 Arterial Blood Oxygen Content 16.3 Arterial Blood Carboxyhemoglobin 0.5 Arterial Blood Methemoglobin 1.0 Blood Gas Hemoglobin 12.4 Oxygen Delivery Device NASAL CANNULA Blood Gas Liter Flow 3.5 Date/Time Source Procedure Growth Status 06/23/17 03:42 Blood Peripheral Aerobic Blood Culture Pending Received 06/23/17 03:42 Blood Peripheral Anaerobic Blood Culture Pending Received 06/22/17 23:59 Urine Catheterized Urine Urine Culture - Preliminary NO GROWTH IN 24 HOURS. Resulted Result Diagram: 06/23/17 0342 06/23/17 0342 Imaging Last Impressions Abdomen/Pelvis CT 06/22/17 0000 Signed Impressions: Service Date/Time: Thursday, June 22, 2017 22:49 - CONCLUSION: 1. Mild mural thickening of the colon with mild pericolonic fat stranding most characteristic of a colitis. No obstruction, free fluid or free air. Danny Johns MD Assessment and Plan Assessment and Plan C.diff hypervirulent strain 027 Sepsis, form C.diff Acute VDRF Hypotension ARF Critically ill and unstable - dc zosyn - dc IV vanco - start IV flagyl - increase oral vanco yo [address] Mannie Lowe,Alana Conn MD Jun 23, 2017 13:53
[2017-06-23 14:10] LABS: AUTOMATED NEUTROPHIL # 8.1 TH/MM3 (1.8-7.7); BASOPHIL % 0.2 % (0.0-2.0); EOSINOPHIL % 0.3 % (0.0-4.0); HEMATOCRIT 30.3 % (35.0-46.0); LYMPH % 5.2 % (9.0-44.0); LYMPHOCYTE # 0.5 TH/MM3 (1.0-4.8); MEAN CELL VOLUME 93.1 FL (80.0-100.0); MEAN CORPUSCULAR HGB CONC 34.4 % (32.0-36.0); MONO % 3.6 % (0.0-8.0); NEUT % 90.7 % (16.0-70.0); PLATELET COUNT 387 TH/MM3 (150-450); RED BLOOD COUNT 3.25 MIL/MM3 (4.00-5.30); RED CELL DISTRIBUTION WIDTH 14.8 % (11.6-17.2); WHITE BLOOD COUNT 8.9 TH/MM3 (4.0-11.0)
[2017-06-23 14:11] LABS: HEMO FLAGS AUTO DIFF
[2017-06-23] MEDS: HYDROCORTISONE SOD SUCCINATE 100 MG VIAL IV PUSH SCH (14:15)
[2017-06-23 14:38] LABS: CALCIUM-PROTEIN CORRECTED 8.7 MG/DL (8.5-10.1)
[2017-06-23 14:39] LABS: POTASSIUM 4.5 MEQ/L (3.5-5.1); TOTAL BILIRUBIN ADULT 1.3 MG/DL (0.2-1.0)
[2017-06-23] MEDS: SODIUM BICARBONATE 8.4% INJ 150 MEQ in DEXTROSE 5% IN WATE 1000ML INJ 1,000 ML IV SCH ×2 (14:43)
[2017-06-23 14:44] LABS: BANDS 29 % (0-6); METAMYELOCYTES 5 % (0-1); MYELOCYTES 1 % (0-0); NEUTROPHIL # MANUAL DIFF 8.2 TH/MM3 (1.8-7.7); OVALOCYTES 1+ (NORMAL); PLATELET ESTIMATE SMEAR NORMAL (NORMAL); PLATELET MORPHOLOGY NORMAL (NORMAL); POLYS (SEG NEUTROPHILS) 57 % (16-70); SCAN/DIFF FINAL DIFF MANUAL; WBC DIFF SAMPLE 100
[2017-06-23] MEDS: NOREPINEPHRINE INJ 4 MG in SODIUM CHLOR 0.9% 250 ML INJ 246 ML IV PRN (17:34)
[2017-06-23 20:10] LABS: BLOOD GAS BASE EXCESS -16.5 mmol/L (-2-2); BLOOD GAS CARBOXYHEMOGLOBIN 0.6 % (0-4); BLOOD GAS HCO3 9 mmol/L (22-26); BLOOD GAS METHEMOGLOBIN 0.7 % (0-2); BLOOD GAS O2 HGB SATURATION 97 % (90-100); BLOOD GAS OXYGEN CONTENT 15.5 Vol % (12.0-20.0); BLOOD GAS PCO2 20 mmHg (38-42); BLOOD GAS PO2 128 mmHG (61-120); BLOOD GAS TOTAL HGB 11.2 G/DL (12.0-16.0); CRITICAL VALUE YES; DRAW SITE RT FEMORAL; FIO2 40 %; NUMBER OF ARTERIAL PUNCTURES 1; OXYGEN DEVICE VENTILATOR; STAT NO; TEMP CORR TO 98.6; VENT SETTINGS 18/500/IT1.0/5PEEP
[2017-06-23] MEDS: CHLORHEXIDINE 0.12% (ORAL KIT) 15 ML CUP MT SCH (20:16)
[2017-06-24] VITALS (17 sets, daily range): BP systolic 107–132; BP diastolic 58–78; PULSE 99–144; RESP 16–29; TEMP 97.8–99.7; O2SAT 93–100
[2017-06-24] MEDS: HYDROCORTISONE SOD SUCCINATE 100 MG VIAL IV PUSH SCH ×4 (01:08→20:36)
[2017-06-24] MEDS: SODIUM CHLOR 0.9% 1000 ML INJ 1,000 ML IV SCH ×5 (01:08→23:02)
[2017-06-24] MEDS: PANTOPRAZOLE INJ 80 MG in SODIUM CHLORIDE 0.9% INJ 100 ML IV SCH ×3 (02:45→23:02)
[2017-06-24] MEDS: CHLORHEXIDINE GLUCONATE 2 % 1 PACK (2 CLOTHS) TOP SCH (03:19)
[2017-06-24] MEDS: metroNIDAZOLE 500 MG INJ 100 ML IV SCH ×3 (04:50→20:35)
[2017-06-24] MEDS: SODIUM BICARBONATE 8.4% INJ 150 MEQ in DEXTROSE 5% IN WATE 1000ML INJ 1,000 ML IV SCH ×4 (04:50→18:36)
[2017-06-24 06:17] LABS: AUTOMATED NEUTROPHIL # 17.4 TH/MM3 (1.8-7.7); BASOPHIL % 0.1 % (0.0-2.0); EOSINOPHIL % 0.2 % (0.0-4.0); HEMATOCRIT 33.4 % (35.0-46.0); LYMPH % 2.7 % (9.0-44.0); LYMPHOCYTE # 0.5 TH/MM3 (1.0-4.8); MEAN CELL VOLUME 92.8 FL (80.0-100.0); MEAN CORPUSCULAR HEMOGLOBIN 31.2 PG (27.0-34.0); MEAN CORPUSCULAR HGB CONC 33.6 % (32.0-36.0); PLATELET COUNT 374 TH/MM3 (150-450); RED CELL DISTRIBUTION WIDTH 15.1 % (11.6-17.2); WHITE BLOOD COUNT 18.1 TH/MM3 (4.0-11.0)
[2017-06-24 06:24] LABS: HEMO FLAGS AUTO DIFF
[2017-06-24 06:33] LABS: BICARBONATE 13.3 MEQ/L (21.0-32.0); MAGNESIUM 1.8 MG/DL (1.5-2.5); POTASSIUM 4.4 MEQ/L (3.5-5.1); TOTAL BILIRUBIN ADULT 1.1 MG/DL (0.2-1.0)
[2017-06-24 07:48] LABS: BANDS 32 % (0-6); BURR CELLS 1+ (NORMAL); PLATELET ESTIMATE SMEAR NORMAL (NORMAL); PLATELET MORPHOLOGY NORMAL (NORMAL); POLYS (SEG NEUTROPHILS) 62 % (16-70); SCAN/DIFF FINAL DIFF MANUAL; TOXIC GRANULATION 1+ (NORMAL); WBC DIFF SAMPLE 100
[2017-06-24 07:49] LABS: TOXIC VACUOLATION PRESENT (NONE SEEN)
[2017-06-24] MEDS: CHLORHEXIDINE 0.12% (ORAL KIT) 15 ML CUP MT SCH ×2 (08:00→20:00)
[2017-06-24] MEDS: SODIUM CHLORIDE 0.9% FLUSH 10 ML FLUSH IV FLUSH SCH ×2 (09:00→21:31)
[2017-06-24] MEDS: DOCUSATE SODIUM 50 MG/SENNA 8.6 MG TAB PO SCH ×2 (09:00→20:38)
--- NOTE | 2017-06-24 09:42 | PD.CONS ---
HPI History of Present Illness This is a 72 year old female who presented to the emergency room for evaluation of generalized weakness and diarrhea x 5 days on 06/22/17 and was admitted for septic shock, acute metabolic encephalopathy, lactic acidosis, and acute kidney injury. Stool studies were positive for CDiff PCR, Epid 027 (+) and she was started on Oral Vancomycin and IV Flagyl per ID recommendations. Her clinical status deteriorated, she developed respiratory distress on 06/23, and she required emergent intubation with mechanical ventilation. GI was consulted for severe C Difficile colitis. The patient is currently sedated on the mechanical ventilator and therefore the history has been obtained by the EMR. There is no mention of any prior episodes of C Difficile colitis. She was recently hospitalized for possible left wrist septic arthritis from 06/13-06/14. During that hospitalization, she was given broad-spectrum antibiotics and evaluated by hand surgeon and infectious disease. She underwent joint aspiration by IR and it was thought that her symptoms likely related to pseudogout. Her cultures were negative and her antibiotics were discontinued. She was started on indomethacin and discharged home. Of note, she had normal LFTs during that hospitalization. On this admission, she was noted to have T. Bili 1.1, AST 100 , ALT 67, Alk PHosph 103. These increased significantly this morning with T. Bili 1.1, AST 2008, ALT 1058, Alk PHosph 124. Of note, she was hypotensive overnight. She is on vasopressors. Her abdomen is soft and nondistended on exam. There are 2 bowel movements documented yesterday, none so far today. She has a rectal bag on. (Leonora Leonard) PFSH Past Medical History Pseudogout Osteoarthritis RA CKD DDD, Spinal stenosis Past Surgical History Recent joint aspiration Cataract surgery Teeth extraction Right bunionectomy (Leonora Leoanrd) Coded Allergies: No Known Allergies (Unverified , 06/12/17) Medications Allergies Coded Allergies Type Severity Reaction Last Updated Verified No Known Allergies 06/12/17 No Active Scripts Medications Dose Route/Sig Max Daily Dose Days Date Category Dose Instructions Indomethacin 50 Mg Cap 50 Mg PO Q8HR 06/14/17 Rx Take with food, milk, or antacids to decrease stomach adverse effects. Soma (Carisoprodol) 250 Mg Tab 250 Mg PO QID PRN 06/12/17 Reported Vitamin B Complex Tablet (Vit B Comp/C/FA/Iron/Vit E) 500-400-18 Tablet 1 Tab PO DAILY 06/12/17 Reported Fish Oil + D3 (Fish Oil-Cholecalciferol) 1,200-1,000 Mg-Unit Cap 1 Cap PO DAILY 05/27/17 Reported [place] + Energy Maximum ([facility] [facility]) 400 Mcg Tab 05/27/17 Reported Tramadol (Tramadol HCl) 50 Mg Tab 50 Mg PO Q6H PRN 05/27/17 Reported Lorazepam 2 Mg Tab 2 Mg PO DAILY PRN 05/27/17 Reported Sertraline (Sertraline HCl) 25 Mg Tab 25 Mg PO DAILY 05/27/17 Reported Prednisone (48) 10 mg tab Dose Pack (Prednisone) 10 Mg Dspk 10 Mg PO DIRECTED 05/27/17 Rx Family History Per EMR, heart disease and htn Social History Per EMR, no tobacco, etoh, illicit drug use. (Leonora Leonard) Review of Systems ROS Unable to obtain (Leonora Leonard) GI Exam Vitals I&O Vital Signs Date Time Temp Pulse Resp B/P (MAP) Pulse Ox O2 Delivery O2 Flow Rate FiO2 06/24/17 08:31 100 40 06/24/17 06:00 114 06/24/17 04:35 100 40 06/24/17 04:00 40 06/24/17 04:00 99.3 114 18 125/58 (80) 100 06/24/17 04:00 114 06/24/17 02:00 120 06/24/17 00:00 40 06/24/17 00:00 136 06/24/17 00:00 99.7 136 16 107/78 (88) 100 06/23/17 23:45 98 40 06/23/17 22:00 142 06/23/17 20:00 118 06/23/17 20:00 99.3 118 16 126/84 (98) 100 06/23/17 19:58 100 40 06/23/17 19:00 100 Mechanical Ventilator 40 06/23/17 18:00 126 06/23/17 17:34 123 86/65 06/23/17 16:00 120 06/23/17 16:00 98.2 122 16 119/71 (87) 100 06/23/17 14:00 120 06/23/17 12:38 99 40 10/1/17 12:00 128 06/23/17 12:00 97.9 124 30 104/65 (78) 97 06/23/17 09:17 96 Nasal Cannula 3.00 I/O 06/23/17 06/23/17 06/23/17 06/24/17 06/24/17 06/24/17 07:00 15:00 23:00 07:00 15:00 23:00 Intake Total 2000 ml 1150 ml 613 ml Output Total 300 ml 100 ml 50 ml Balance 1700 ml 1150 ml 513 ml -50 ml Intake Oral 0 ml IV Total 2000 ml 1150 ml 613 ml Output Urine Total 300 ml 100 ml 50 ml Stool Total 0 ml # Bowel Movements 2 0 Imaging Last Impressions Chest X-Ray 06/23/17 0000 Signed Impressions: Service Date/Time: Friday, June 23, 2017 12:55 - CONCLUSION: Endotracheal tube is slightly advanced into the right main bronchus, needs to be retracted Miguel Ball MD Abdomen/Pelvis CT 06/22/17 0000 Signed Impressions: Service Date/Time: Thursday, June 22, 2017 22:49 - CONCLUSION: 1. Mild mural thickening of the colon with mild pericolonic fat stranding most characteristic of a colitis. No obstruction, free fluid or free air. Danny Johns MD Laboratory Test 06/23/17 11:06 06/23/17 13:18 06/23/17 13:20 06/23/17 13:30 Blood Gas Puncture Site LT RADIAL LT RADIAL CENTRAL LINE Blood Gas Patient Temperature 98.6 98.6 98.6 Blood Gas HCO3 10 mmol/L 10 mmol/L Blood Gas Base Excess -16.6 mmol/L -16.7 mmol/L Blood Gas Oxygen Saturation 93 % 97 % Arterial Blood pH 7.21 7.23 Arterial Blood Partial Pressure CO2 26 mmHg 24 mmHg Arterial Blood Partial Pressure O2 86 mmHg 131 mmHG Arterial Blood Oxygen Content 16.3 Vol % 18.8 Vol % Arterial Blood Carboxyhemoglobin 0.5 % 0.3 % Arterial Blood Methemoglobin 1.0 % 0.6 % Blood Gas Hemoglobin 12.4 G/DL 13.7 G/DL Oxygen Delivery Device NASAL CANNULA VENTILATOR VENTILATOR Blood Gas Liter Flow 3.5 L/M Blood Gas Ventilator Setting PRVC/16/500/1.0/+5 PRVC/16/500/1.0/+5 Blood Gas Inspired Oxygen 40 % 40 % Venous Blood pH 7.20 Venous Blood Partial Pressure CO2 27 mmHg Venous Blood Partial Pressure O2 56 mmHg Venous Blood HCO3 10 mmol/L Venous Blood Oxygen Saturation 84 % Venous Blood Oxygen Content 8.3 Vol % Venous Blood Base Excess -16.3 mmol/L White Blood Count 8.9 TH/MM3 Red Blood Count 3.25 MIL/MM3 Hemoglobin 10.4 GM/DL Hematocrit 30.3 % Mean Corpuscular Volume 93.1 FL Mean Corpuscular Hemoglobin 32.0 PG Mean Corpuscular Hemoglobin Concent 34.4 % Red Cell Distribution Width 14.8 % Platelet Count 387 TH/MM3 Mean Platelet Volume 7.5 FL Neutrophils (%) (Auto) 90.7 % Lymphocytes (%) (Auto) 5.2 % Monocytes (%) (Auto) 3.6 % Eosinophils (%) (Auto) 0.3 % Basophils (%) (Auto) 0.2 % Neutrophils # (Auto) 8.1 TH/MM3 Lymphocytes # (Auto) 0.5 TH/MM3 Monocytes # (Auto) 0.3 TH/MM3 Eosinophils # (Auto) 0.0 TH/MM3 Basophils # (Auto) 0.0 TH/MM3 CBC Comment AUTO DIFF Differential Total Cells Counted 100 Neutrophils % (Manual) 57 % Band Neutrophils % 29 % Lymphocytes % 2 % Monocytes % 6 % Neutrophils # (Manual) 8.2 TH/MM3 Metamyelocytes 5 % Myelocytes 1 % Differential Comment FINAL DIFF MANUAL Platelet Estimate NORMAL Platelet Morphology Comment NORMAL Ovalocytes 1+ Blood Urea Nitrogen 40 MG/DL Creatinine 2.45 MG/DL Random Glucose 50 MG/DL Total Protein 4.7 GM/DL Albumin 1.8 GM/DL Calcium Level 7.3 MG/DL Alkaline Phosphatase 105 U/L Aspartate Amino Transf (AST/SGOT) 151 U/L Alanine Aminotransferase (ALT/SGPT) 91 U/L Total Bilirubin 1.3 MG/DL Sodium Level 145 MEQ/L Potassium Level 4.5 MEQ/L Chloride Level 118 MEQ/L Carbon Dioxide Level 14.0 MEQ/L Anion Gap 13 MEQ/L Estimat Glomerular Filtration Rate 19 ML/MIN Protein Corrected Calcium 8.7 MG/DL Test 06/23/17 14:08 06/23/17 19:52 06/24/17 05:35 Lactic Acid Level 2.9 mmol/L 5.0 mmol/L Blood Gas Puncture Site RT FEMORAL Blood Gas Patient Temperature 98.6 Blood Gas HCO3 9 mmol/L Blood Gas Base Excess -16.5 mmol/L Blood Gas Oxygen Saturation 97 % Arterial Blood pH 7.28 Arterial Blood Partial Pressure CO2 20 mmHg Arterial Blood Partial Pressure O2 128 mmHG Arterial Blood Oxygen Content 15.5 Vol % Arterial Blood Carboxyhemoglobin 0.6 % Arterial Blood Methemoglobin 0.7 % Blood Gas Hemoglobin 11.2 G/DL Oxygen Delivery Device VENTILATOR Blood Gas Ventilator Setting 18/500/IT1.0/5PEEP Blood Gas Inspired Oxygen 40 % White Blood Count 18.1 TH/MM3 Red Blood Count 3.60 MIL/MM3 Hemoglobin 11.2 GM/DL Hematocrit 33.4 % Mean Corpuscular Volume 92.8 FL Mean Corpuscular Hemoglobin 31.2 PG Mean Corpuscular Hemoglobin Concent 33.6 % Red Cell Distribution Width 15.1 % Platelet Count 374 TH/MM3 Mean Platelet Volume 7.7 FL Neutrophils (%) (Auto) 96.0 % Lymphocytes (%) (Auto) 2.7 % Monocytes (%) (Auto) 1.0 % Eosinophils (%) (Auto) 0.2 % Basophils (%) (Auto) 0.1 % Neutrophils # (Auto) 17.4 TH/MM3 Lymphocytes # (Auto) 0.5 TH/MM3 Monocytes # (Auto) 0.2 TH/MM3 Eosinophils # (Auto) 0.0 TH/MM3 Basophils # (Auto) 0.0 TH/MM3 CBC Comment AUTO DIFF Differential Total Cells Counted 100 Neutrophils % (Manual) 62 % Band Neutrophils % 32 % Lymphocytes % 1 % Monocytes % 5 % Neutrophils # (Manual) 17.0 TH/MM3 Differential Comment FINAL DIFF MANUAL Toxic Granulation 1+ Toxic Vacuolation PRESENT Platelet Estimate NORMAL Platelet Morphology Comment NORMAL Lis Cells 1+ Blood Urea Nitrogen 46 MG/DL Creatinine 3.32 MG/DL Random Glucose 166 MG/DL Total Protein 4.8 GM/DL Albumin 1.6 GM/DL Calcium Level 6.8 MG/DL Phosphorus Level 4.6 MG/DL Magnesium Level 1.8 MG/DL Alkaline Phosphatase 124 U/L Aspartate Amino Transf (AST/SGOT) 2008 U/L Alanine Aminotransferase (ALT/SGPT) 1058 U/L Total Bilirubin 1.1 MG/DL Sodium Level 144 MEQ/L Potassium Level 4.4 MEQ/L Chloride Level 112 MEQ/L Carbon Dioxide Level 13.3 MEQ/L Anion Gap 19 MEQ/L Estimat Glomerular Filtration Rate 14 ML/MIN Protein Corrected Calcium 8.0 MG/DL Date/Time Source Procedure Growth Status 06/23/17 03:42 Blood Peripheral Aerobic Blood Culture Pending Received 06/23/17 03:42 Blood Peripheral Anaerobic Blood Culture Pending Received 06/22/17 23:59 Urine Catheterized Urine Urine Culture - Preliminary NO GROWTH IN 24 HOURS. Resulted Physical Examination HEENT: Normocephalic; atraumatic; no jaundice. CHEST: Resp even/unlabored. CTA. OETT to vent CARDIAC: RRR, on vasopressors ABDOMEN: Soft, nondistended, nontender; no hepatosplenomegaly; bowel sounds are present in all four quadrants. EXTREMITIES: Mild generalized edema. MEDICAL SERVICE REPRESENTATIVE: Sedated on vent. (Leonora Leonard) Assessment and Plan Plan ASSESSMENT: - Severe CDifficile colitis. Epid 027 (+). CT Scan abdomen and pelvis (06/22/17 )----> Mild mural thickening of the colon with pericolonic fat stranding most characteristic of a colitis. No obstruction, free fluid or free air. No documented hx of CDiff in EMR. Was recently hospitalized for possible septic joint, was treated with broad-spectrum abx. S/P joint aspiration, cx negative, was taken off abx, thought to be pseudogout. ID following. On IV Flagyl, Oral vancomycin. Off zosyn. Clinically, abdomen is soft, nondistended. - Severe Sepsis, Bandemia, leukocytosis. WBC 18.1, Band 32. Off zosyn, on IV flagyl, oral vanco. ID following. - Shocked liver/Elevated LFTs. Noted to have normal LFTs 06/13. On this admission, she was noted to have T. Bili 1.1, AST 100, ALT 67, Alk PHosph 103. These increased significantly this morning with T. Bili 1.1, AST 2008, ALT 1058, Alk PHosph 124. Of note, she was hypotensive overnight. She is on vasopressors. She was recently started on indomethacin. However, her sudden worsening of LFTs is more characteristic of shocked liver. - Coagulopathy. Will need to recheck today. - Acute kidney injury. Worsening renal function/failure. Creat 3.32. - Anemia. 11.2/33.4. No obvious blood loss. - Acute respiratory failure. Intubated on 05/24, vent per CCM - RA, DDD, per attending. Per attending. PLAN: - NPO for now - Cont. Oral Vanco per ID recommendations - Cont. IV Flagyl per ID recommendations - Monitor labs - Hepatitis profile - PT/INR today - CBC, CMP, PT/INR in am - Avoid hepatotoxic medications - Avoid hypotension - Supportive care - Further recommendations to follow based on results of above - Pt seen and examined by Dr. Jo and myself and this note is written on her behalf (Leonora Leonard) Physician Comments seen, examined agree with above possible some degree of superimposed ischemic colitis consider flexisigmoidoscopy based on clinical response agree with surgical consult if not better (Tricia Jo MD) Leonora Leonard Jun 24, 2017 09:42 Tricia Jo MD Jun 24, 2017 14:15
--- NOTE | 2017-06-24 09:57 | HHI.CCPN ---
Subjective Remarks/Hospital Course 72-year-old female presents for evaluation of generalized weakness and diarrhea for the past 5 days. Today she became more confused and she has been unable to ambulate without assistance. She feels dizzy and lightheaded. She has abdominal discomfort. She denies any chest pain or shortness of breath. She has been having watery diarrhea for loss 5 days. She was released from the hospital on the 14 of June after treatment of pseudogout. She was admitted secondary to possible septic joint which she was not found to have this. She complains on severe abdominal pain and admits that her stool is usually liquidly but no blood or melena. She was started on indomethacin for treatment of pseudogout. Per she's been more confused today. Confusion and weakness started about 3 days ago. The CAT scan of the abdomen performed in the emergency department confirmed bowel wall thickening consistent with colitis and her stool is positive for C. difficile. SUBJ 06/24/17: Critically ill confused, hypotensive on 2 mcg/m of Levophed. Oliguric urine output only 60 ML in last 4 hours. Patient is AO 1 and somnolent. Stat ABG showed a pH of 7.2, PCO2 of 26 PO2 of 86 with a base excess of -17. Due to severe metabolic acidosis and worsening mentation, patient will be intubated and placed on mechanical ventilation 06/24: clinically worse. on 2 vasopressors, added vasopressin to levophed which is now at 10 mcg/min. shock liver, anuric kidney injury, lactate rising despite CVP 15 and adequate resuscitation. discussed case with Dr. Lowe, adding vanc enemas. stat consult placed to colorectal surgery for possible emergent colectomy, as she is failing non-operative management for refractory colitis. discussed again with dr. lowe and no other sources of infection can be identified. Objective Vital Signs Date Time Temp Pulse Resp B/P (MAP) Pulse Ox O2 Delivery O2 Flow Rate FiO2 06/24/17 08:31 100 40 06/24/17 06:00 114 06/24/17 04:00 99.3 18 125/58 (80) 06/23/17 19:00 Mechanical Ventilator 06/23/17 09:17 3.00 Intake and Output 06/24/17 06/24/17 06/24/17 07:59 15:59 23:59 Output Total 50 ml Balance -50 ml Result Diagram: 06/24/17 0535 06/24/17 0535 Other Results Laboratory Tests Test 06/23/17 11:06 06/23/17 13:18 06/23/17 13:20 06/23/17 19:52 Blood Gas Puncture Site LT RADIAL LT RADIAL CENTRAL LINE RT FEMORAL Blood Gas Patient Temperature 98.6 98.6 98.6 98.6 Blood Gas HCO3 10 mmol/L (22-26) 10 mmol/L (22-26) 9 mmol/L (22-26) Blood Gas Base Excess -16.6 mmol/L (-2-2) -16.7 mmol/L (-2-2) -16.5 mmol/L (-2-2) Blood Gas Oxygen Saturation 93 % (90-100) 97 % (90-100) 97 % (90-100) Arterial Blood pH 7.21 (7.380-7.420) 7.23 (7.380-7.420) 7.28 (7.380-7.420) Arterial Blood Partial Pressure CO2 26 mmHg (38-42) 24 mmHg (38-42) 20 mmHg (38-42) Arterial Blood Partial Pressure O2 86 mmHg (61-120) 131 mmHG (61-120) 128 mmHG (61-120) Arterial Blood Oxygen Content 16.3 Vol % (12.0-20.0) 18.8 Vol % (12.0-20.0) 15.5 Vol % (12.0-20.0) Arterial Blood Carboxyhemoglobin 0.5 % (0-4) 0.3 % (0-4) 0.6 % (0-4) Arterial Blood Methemoglobin 1.0 % (0-2) 0.6 % (0-2) 0.7 % (0-2) Blood Gas Hemoglobin 12.4 G/DL (12.0-16.0) 13.7 G/DL (12.0-16.0) 11.2 G/DL (12.0-16.0) Oxygen Delivery Device NASAL CANNULA VENTILATOR VENTILATOR VENTILATOR Blood Gas Liter Flow 3.5 L/M Blood Gas Ventilator Setting PRVC/16/500/1.0/+5 PRVC/16/500/1.0/+5 18/500/IT1.0/5PEEP Blood Gas Inspired Oxygen 40 % 40 % 40 % Venous Blood pH 7.20 (7.360-7.400) Venous Blood Partial Pressure CO2 27 mmHg (44-48) Venous Blood Partial Pressure O2 56 mmHg (35-40) Venous Blood HCO3 10 mmol/L (22-26) Venous Blood Oxygen Saturation 84 % (70-76) Venous Blood Oxygen Content 8.3 Vol % (9.0-17.0) Venous Blood Base Excess -16.3 mmol/L (-2-2) Objective Remarks GENERAL: Elderly female in distress, critically ill, intubated SKIN: Warm and dry. HEAD: Normocephalic. EYES: No scleral icterus. No injection or drainage. NECK: trachea midline. No JVD CARDIOVASCULAR: Tachycardic rate and rhythm Hypotensive on Levophed and vasopressin RESPIRATORY: intubated, fio2 50%. equal chest rise. GASTROINTESTINAL: Abdomen soft, tender diffusely and mildly distended MUSCULOSKELETAL: No cyanosis, or edema. NEURO EXAM: RASS -4. currently off sedation. w/d weakly. does not follow commands. A/P Assessment and Plan Assessment: 72yF with fulminant c-difficile colitis and refractory septic shock and multiorgan failure clinically decompensating. Her NSQUIP risk calculator gives her a predicted 70% perioperative mortality, but she is failing medical management. Her organ dysfunction is worsening. emergent colectomy may be her only option for successful source control. she is certainly at high risk of , and may decompensate despite our best efforts to salvage her end-organs. remains critically ill and worsening. May likely end up with acute dialysis if kidneys do not improve soon. Neuro: Acute metabolic encephalopathy- worsening. - versed for goal RASS -2. currently on hold as patient is RASS -4. - When necessary fentanyl if needed CVS: Septic shock- refractory and worsening. Sinus Tachycardia Lactic acidosis- worsening. - pulse contour analysis connected, and SVV < 10. volume replete. remains in shock. - add vasopressin - continue levophed for map goal > 65mmHg. - trend lactates. currently still uptrending. RESP Acute hypoxic and hypercarbic respiratory failure Severe metabolic acidosis - Intubated for severe metabolic acidosis and respiratory failure, encephalopathy - Assist-control mechanical ventilation, ventilator bundle - DuoNeb every 6 hours scheduled and when necessary - No ventilator weaning until septic shock is improved GI/ID Septic shock Severe C. difficile colitis - Clinically patient has severe C. difficile colitis - 027 positive - Continue By mouth vancomycin, and IV Flagyl - add vanc enemas - stat colorectal surgery consultation. - ID following. : Acute kidney injury- now anuric. - Dehydration, continue aggressive IV resuscitation - Strict I's and O's - Monitor trend of electrolytes and creatinine - will re-eval after possible surgery. no emergent indication for IHD, but may require HD soon if no improvement. MSK: Pseudogout/rheumatoid arthritis Relative Adrenal Insufficiency - Home dose of Prednisone 10 mg daily-hold - hydrocortisone 100 mg IV every 8 hours ENDO: - Electrolyte replacement per protocol DVT GI prophylaxis - JACQUELIN/SCDs - Subcutaneous heparin - Pantoprazole IV twice a day - questionable gastritis due to indomethacin Critical Care: The total critical care time was 82 minutes excluding procedures. Time to perform other separately billable procedures was not included in the critical care time. Multiple re-evaluations throughout the day and ongoing medical management of clinically decompensating refractory shock. Joaquín Greenberg MD Jun 24, 2017 09:57
[2017-06-24 10:01] LABS: BLOOD GAS BASE EXCESS -14.5 mmol/L (-2-2); BLOOD GAS CARBOXYHEMOGLOBIN 0.5 % (0-4); BLOOD GAS HCO3 10 mmol/L (22-26); BLOOD GAS METHEMOGLOBIN 1.1 % (0-2); BLOOD GAS O2 HGB SATURATION 97 % (90-100); BLOOD GAS OXYGEN CONTENT 15.5 Vol % (12.0-20.0); BLOOD GAS PCO2 18 mmHg (38-42); BLOOD GAS PO2 142 mmHg (61-120); BLOOD GAS TOTAL HGB 11.2 G/DL (12.0-16.0); CRITICAL VALUE YES; OXYGEN DEVICE VENTILATOR; TEMP CORR TO 98.6
[2017-06-24 10:02] LABS: DRAW SITE ART LINE; FIO2 40 %; STAT YES; ULNAR PULSE PRESENT; VENT SETTINGS PRVC/AC
[2017-06-24] MEDS: VANCOMYCIN 500 MG VIAL (FOR ORAL USE ONLY) PO SCH ×4 (10:49→20:37)
--- NOTE | 2017-06-24 10:52 | RADRPT ---
EXAM DATE/TIME: 06/24/2017 10:10 [facility] COMPARISON: CHEST SINGLE AP, June 23, 2017, 12:55. INDICATIONS : Shortness of breath. MEDICAL HISTORY : Cardiovascular disease. Renal failure. SURGICAL HISTORY : None. ENCOUNTER: Subsequent ACUITY: 3 days PAIN SCORE: Non-responsive. LOCATION: Bilateral chest FINDINGS: Support lines and tubes are in satisfactory position. The nasogastric tube could be enhanced 10 cmThe re are findings of congestive heart failure with interstitial and alveolar opacity bilaterally. There is left lower lobe atelectasis versus pneumonia. The findings are improved when compared with the pr ior exam. CONCLUSION: 1. Cardiomegaly and findings of congestive heart failure. The findings have improved when compared wi th the prior exam. 2. Nasogastric tube as above this could be advanced 5-10 cm Fawad Isaacs MD on June 24, 2017 at 10:50 Board Certified Radiologist. This report was verified electronically.
--- NOTE | 2017-06-24 10:53 | RADRPT ---
EXAM DATE/TIME: 06/24/2017 10:16 [facility] COMPARISON: No previous studies available for comparison. INDICATIONS : Distention. MEDICAL HISTORY : Cardiovascular disease. Renal failure. SURGICAL HISTORY : None. ENCOUNTER: Subsequent ACUITY: 3 days PAIN SCORE: Non-responsive. LOCATION: abdomen. FINDINGS: Supine view of the abdomen was performed. The abdominal bowel gas pattern is normal. No abnormal ma sses, calcifications, or organomegaly is seen. The osseous structures are unremarkable. CONCLUSION: 1. No evidence of obstruction. Fawad Isaacs MD on June 24, 2017 at 10:51 Board Certified Radiologist. This report was verified electronically.
[2017-06-24] MEDS: FIDAXOMICIN 200 MG TAB PO SCH ×2 (11:00→20:37)
[2017-06-24] MEDS: PANTOPRAZOLE SODIUM 40 MG VIAL IV PUSH SCH ×2 (11:00→21:31)
[2017-06-24 11:20] LABS: INTERNATIONAL NORMALIZED RATIO 1.6 RATIO; PROTHROMBIN TIME - PATIENT 18.4 SEC (9.8-11.6)
[2017-06-24] MEDS: VANCOMYCIN INJ 500 MG in SODIUM CHLORIDE 0.9% IRR BTL 250 ML IRRIGATION SCH ×2 (12:00→18:00)
--- NOTE | 2017-06-24 12:28 | HHI.IDPN ---
Subjective Subjective Remarks doing poorly Overnight progressively deteriorated hemodynamically now on 2 pressors with signs of poor perfusion He r WBC up to 18 K Her lactic acid 5.5 going up AST/ALT in 2000s/1000s No BMs No UOP Antibiotics vanco Flagyl iv Allergies: Coded Allergies: No Known Allergies (Unverified , 06/12/17) Objective . Vital Signs Date Time Temp Pulse Resp B/P (MAP) Pulse Ox O2 Delivery O2 Flow Rate FiO2 06/24/17 08:31 100 40 06/24/17 06:00 114 06/24/17 04:35 100 40 06/24/17 04:00 40 06/24/17 04:00 99.3 114 18 125/58 (80) 100 06/24/17 04:00 114 06/24/17 02:00 120 06/24/17 00:00 40 06/24/17 00:00 136 06/24/17 00:00 99.7 136 16 107/78 (88) 100 06/23/17 23:45 98 40 06/23/17 22:00 142 06/23/17 20:00 118 06/23/17 20:00 99.3 118 16 126/84 (98) 100 06/23/17 19:58 100 40 06/23/17 19:00 100 Mechanical Ventilator 40 06/23/17 18:00 126 06/23/17 17:34 123 86/65 06/23/17 16:00 120 06/23/17 16:00 98.2 122 16 119/71 (87) 100 06/23/17 14:00 120 06/23/17 12:38 99 40 . Laboratory Tests Test 06/22/17 21:22 06/23/17 03:42 06/23/17 13:30 06/24/17 05:35 White Blood Count 2.8 TH/MM3 5.4 TH/MM3 8.9 TH/MM3 18.1 TH/MM3 Red Blood Count 2.75 MIL/MM3 3.43 MIL/MM3 3.25 MIL/MM3 3.60 MIL/MM3 Hemoglobin 8.6 GM/DL 10.7 GM/DL 10.4 GM/DL 11.2 GM/DL Hematocrit 25.5 % 32.1 % 30.3 % 33.4 % Mean Corpuscular Volume 92.7 FL 93.6 FL 93.1 FL 92.8 FL Mean Corpuscular Hemoglobin 31.1 PG 31.2 PG 32.0 PG 31.2 PG Mean Corpuscular Hemoglobin Concent 33.5 % 33.3 % 34.4 % 33.6 % Red Cell Distribution Width 14.1 % 14.3 % 14.8 % 15.1 % Platelet Count 442 TH/MM3 397 TH/MM3 387 TH/MM3 374 TH/MM3 Mean Platelet Volume 6.9 FL 6.7 FL 7.5 FL 7.7 FL CBC Comment AUTO DIFF AUTO DIFF AUTO DIFF AUTO DIFF Differential Total Cells Counted 100 100 100 100 Neutrophils % (Manual) 30 % 45 % 57 % 62 % Band Neutrophils % 46 % 34 % 29 % 32 % Lymphocytes % 13 % 6 % 2 % 1 % Monocytes % 11 % 5 % 6 % 5 % Neutrophils # (Manual) 2.1 TH/MM3 4.8 TH/MM3 8.2 TH/MM3 17.0 TH/MM3 Differential Comment FINAL DIFF MANUAL FINAL DIFF MANUAL FINAL DIFF MANUAL FINAL DIFF MANUAL Platelet Estimate NORMAL NORMAL NORMAL NORMAL Platelet Morphology Comment CLUMPED NORMAL NORMAL NORMAL Ovalocytes 1+ 1+ 1+ [place] Cells 1+ 2+ 1+ Neutrophils (%) (Auto) 86.6 % 90.7 % 96.0 % Lymphocytes (%) (Auto) 6.4 % 5.2 % 2.7 % Monocytes (%) (Auto) 5.7 % 3.6 % 1.0 % Eosinophils (%) (Auto) 1.2 % 0.3 % 0.2 % Basophils (%) (Auto) 0.1 % 0.2 % 0.1 % Neutrophils # (Auto) 4.6 TH/MM3 8.1 TH/MM3 17.4 TH/MM3 Lymphocytes # (Auto) 0.3 TH/MM3 0.5 TH/MM3 0.5 TH/MM3 Monocytes # (Auto) 0.3 TH/MM3 0.3 TH/MM3 0.2 TH/MM3 Eosinophils # (Auto) 0.1 TH/MM3 0.0 TH/MM3 0.0 TH/MM3 Basophils # (Auto) 0.0 TH/MM3 0.0 TH/MM3 0.0 TH/MM3 Metamyelocytes 10 % 5 % Toxic Granulation 1+ 1+ Toxic Vacuolation PRESENT PRESENT Keratocytes 1+ Myelocytes 1 % Laboratory Tests Test 06/22/17 21:22 06/22/17 23:21 06/23/17 03:42 06/23/17 13:30 Blood Urea Nitrogen 45 MG/DL 41 MG/DL 40 MG/DL Creatinine 3.22 MG/DL 2.54 MG/DL 2.45 MG/DL Random Glucose 71 MG/DL 86 MG/DL 50 MG/DL Total Protein 5.3 GM/DL 5.0 GM/DL 4.7 GM/DL Albumin 1.8 GM/DL 1.7 GM/DL 1.8 GM/DL Calcium Level 10.1 MG/DL 8.3 MG/DL 7.3 MG/DL Alkaline Phosphatase 93 U/L 103 U/L 105 U/L Aspartate Amino Transf (AST/SGOT) 14 U/L 100 U/L 151 U/L Alanine Aminotransferase (ALT/SGPT) 15 U/L 67 U/L 91 U/L Total Bilirubin 0.6 MG/DL 1.1 MG/DL 1.3 MG/DL Sodium Level 134 MEQ/L 139 MEQ/L 145 MEQ/L Potassium Level 4.1 MEQ/L 4.2 MEQ/L 4.5 MEQ/L Chloride Level 103 MEQ/L 112 MEQ/L 118 MEQ/L Carbon Dioxide Level 17.8 MEQ/L 15.7 MEQ/L 14.0 MEQ/L Anion Gap 13 MEQ/L 11 MEQ/L 13 MEQ/L Estimat Glomerular Filtration Rate 14 ML/MIN 19 ML/MIN 19 ML/MIN Lactic Acid Level 4.5 mmol/L 3.6 mmol/L Lipase 34 U/L Phosphorus Level 4.5 MG/DL Magnesium Level 1.8 MG/DL Protein Corrected Calcium 8.7 MG/DL Test 06/23/17 14:08 06/24/17 05:35 06/24/17 10:30 Lactic Acid Level 2.9 mmol/L 5.0 mmol/L 5.5 mmol/L Blood Urea Nitrogen 46 MG/DL Creatinine 3.32 MG/DL Random Glucose 166 MG/DL Total Protein 4.8 GM/DL Albumin 1.6 GM/DL Calcium Level 6.8 MG/DL Phosphorus Level 4.6 MG/DL Magnesium Level 1.8 MG/DL Alkaline Phosphatase 124 U/L Aspartate Amino Transf (AST/SGOT) 2008 U/L Alanine Aminotransferase (ALT/SGPT) 1058 U/L Total Bilirubin 1.1 MG/DL Sodium Level 144 MEQ/L Potassium Level 4.4 MEQ/L Chloride Level 112 MEQ/L Carbon Dioxide Level 13.3 MEQ/L Anion Gap 19 MEQ/L Estimat Glomerular Filtration Rate 14 ML/MIN Protein Corrected Calcium 8.0 MG/DL Microbiology Date/Time Source Procedure Growth Status 06/23/17 03:42 Blood Peripheral Aerobic Blood Culture - Preliminary NO GROWTH IN 1 DAY Resulted 06/23/17 03:42 Blood Peripheral Anaerobic Blood Culture - Preliminary NO GROWTH IN 1 DAY Resulted 06/22/17 21:22 Blood Peripheral Aerobic Blood Culture - Preliminary NO GROWTH IN 2 DAYS Resulted 06/22/17 21:22 Blood Peripheral Anaerobic Blood Culture - Preliminary NO GROWTH IN 2 DAYS Resulted 06/22/17 23:59 Urine Catheterized Urine Urine Culture - Final NO GROWTH IN 48 HOURS. Complete Imaging Last Impressions Chest X-Ray 06/23/17 0000 Signed Impressions: Service Date/Time: Friday, June 23, 2017 12:55 - CONCLUSION: Endotracheal tube is slightly advanced into the right main bronchus, needs to be retracted Miguel Ball MD Abdomen/Pelvis CT 06/22/17 0000 Signed Impressions: Service Date/Time: Thursday, June 22, 2017 22:49 - CONCLUSION: 1. Mild mural thickening of the colon with mild pericolonic fat stranding most characteristic of a colitis. No obstruction, free fluid or free air. Danny Johns MD Physical Exam CONSTITUTIONAL/GENERAL: This is an adequately nourished patient, in no apparent distress. TUBES/LINES/DRAINS: SKIN: No jaundice, rashes, or lesions. Skin temperature appropriate. Not diaphoretic. EYES: Pupils equal and round and reactive. Extraocular motions intact. No scleral icterus. No injection or drainage. Fundi not examined. CARDIOVASCULAR: Regular rate and rhythm without murmurs, gallops, or rubs. No JVD. Peripheral pulses symmetric. RESPIRATORY/CHEST: Symmetric, unlabored respirations. Clear to auscultation. Breath sounds equal bilaterally. No wheezes, rales, or rhonchi. GASTROINTESTINAL: Abdomen soft, diffusely tender (grimacing even to light touch) , moderately distended. No hepato-splenomegaly, or palpable masses. No guarding. Bowel sounds hypo GENITOURINARY: Without palpable bladder distension. Ge catheter in place with minimal amount of brown urine MUSCULOSKELETAL: Extremities without clubbing, + prominent cyanosis hands, toes very deleayed refill dusky R hallux, cold, no refill, slight edema. No joint tenderness or effusion noted. No calf tenderness. No mottling or clubbing. LYMPHATICS: No palpable cervical or supraclavicular adenopathy. NEUROLOGICAL: sedated, unresponsive PSYCHIATRIC:unable to assess Assessment & Plan Remarks C.diff hypervirulent strain 027; fulminant Sepsis, form C.diff - fulminant pt is now in multiorgan failure with acute VDRF, circulatory collapse, anuric ARF and shock liver) - CT A/P with colitis Acute VDRF Hypotension from sepsis, ARF Critically ill and unstable, worse Prognosis is poor unless source controlled - will restart zosyn for concern of bacteremia 2/2 bacterial penetration - cont oral vanco - KUB STAT start vanco enemas - call placed to Dr Bina Bolaños for STAT evaluation for colecteomy -cont IV flagyl - Discussed Condition With Dr Vasquez: agree that pt needs colectomy to control her fulmonant sepsis source; she is failing concervative measure and apparently is having a very severe disease Alana Lowe MD Jun 24, 2017 12:28
[2017-06-24] MEDS: VASOPRESSIN INJ 40 UNITS in DEXTROSE 5% IN WATER 100ML INJ 98 ML IV SCH ×2 (12:41)
[2017-06-24] MEDS: NOREPINEPHRINE INJ 4 MG in SODIUM CHLOR 0.9% 250 ML INJ 246 ML IV PRN (12:42)
[2017-06-24] MEDS ORDERED: PIPERACIL-TAZO 2.25 GM PREMIX 50 ML IV SCH (13:00)
[2017-06-24 13:02] LABS: LACTIC ACID GHOST NOT REPORTABLE
--- NOTE | 2017-06-24 16:59 | MB ---
cc: KATHLEEN EFRRARO M.D. DATE OF CONSULTATION 06/24/2017 CHIEF COMPLAINT Fulminant C. difficile colitis. HISTORY OF PRESENT ILLNESS The patient is a 72-year-old female who evidently prior to this admission, was seen in the hospital and treated for pseudogout. During that admission she did get a few doses of antibiotics. She then began having diarrhea five or six days prior to admission. She came to the hospital about three days prior to this. At that time she began having more confusion and weakness to the point of difficulty with ambulation. She had dizziness, lightheadedness and abdominal discomfort. She was evaluated in the emergency department and CT scan confirmed mild bowel wall thickening consistent with C diff colitis and the stool tested positive for C diff colitis. PAST MEDICAL HISTORY 1. Pseudogout. 2. Rheumatoid arthritis. 3. Chronic kidney disease stage III. 4. Spinal stenosis. PAST SURGICAL HISTORY 1. Bilateral carpal tunnel release. 2. Cataracts. 3. Right bunionectomy. 4. Teeth extraction. ALLERGIES None MEDICATIONS See nurse's notes for details. REVIEW OF SYSTEMS Is per chart as the patient is intubated and sedated. The patient at the time of admission denied chest pain, shortness of breath. Positive for confusion, weakness, difficulty with ambulation. Positive for diarrhea and abdominal pain. Negative for melena or hematochezia. PHYSICAL EXAMINATION GENERAL: Physical exam reveals an elderly female who is ventilated. She has full body anasarca. Her extremities are mottled. CARDIOVASCULAR: Tachycardiac but regular. CHEST: The patient is ventilated. She is intubated. ABDOMEN: Soft. Mild distension. EXTREMITIES: As mentioned before do show mottling. VITAL SIGNS: The patient's maximum temperature is 99.7. Her current pulse is 125, blood pressure 117/65. IMAGING Abdominal x-ray from today shows a normal bowel gas pattern. No free air. LABORATORY DATA Laboratory work reveals a white count of 18.1 today, hemoglobin 11.2, platelets of 374. Chemistry shows a sodium 144, potassium of 4.4, chloride is 112, bicarb is 13.3, BUN is 46, creatinine is 3.32 and glucose is 166. Lactic acid is 5.5 up from 2.9 yesterday. Liver functions are elevated with a bili of 1.1, AST of 2008, ALT of 1058, alk phos of 124. IMPRESSION C diff colitis with multiorgan failure system including heart failure, liver failure, kidney failure and respiratory failure. A long discussion was undertaken with the . Unfortunately I do not believe this is survivable and I have discussed this with him. There is a very slim chance that she could survive without surgery but I do think that she would not survive surgery. I have discussed this with him and he is going to discuss the situation with the daughter and I will discuss it with both of them further at that point. I have also described that if indeed we do go to surgery and by some miracle she is able to survive, she will have permanent ileostomy and he is aware of that. MD EARL Galindo/KK /2:38 PM /4:45 PM MTDJulia
--- NOTE | 2017-06-24 19:26 | EKG ---
Date Performed: 06/23/2017 Time Performed: 23:18:52 PTAGE: 72 years EKG: Atrial tachycardia Left axis deviation Inferior infarct - age undetermined Possible anteros eptal infarct - age undetermined Lateral T wave changes may be due to myocardial ischemia Generalized low QRS voltages Abnormal ECG PREVIOUS TRACING : 05/21/2017 12.42 DOCTOR: Tomasz Barragan Interpretating Date/Time 06/24/2017 19:25:08
[2017-06-24] MEDS ORDERED: SODIUM CHLOR 0.9% 1000 ML INJ 1,000 ML IV ONE ×3 (20:15)
[2017-06-24] MEDS: ALBUMIN HUMAN 5% 25 GM/500 ML BOTTLE IV SCH (20:37)
[2017-06-24] MEDS: PIPERACIL-TAZO 2.25 GM PREMIX 50 ML IV SCH (20:38)
[2017-06-24] MEDS ORDERED: MAGNESIUM SULFATE 1 GM PREMIX 200 ML ONE (20:47)
[2017-06-24] MEDS ORDERED: MAGNESIUM SULFATE 2 GM/NS 100 ML IV ONE ×2 (21:00)
[2017-06-24] MEDS ORDERED: CALCIUM GLUCONATE INJ 2 GM in SODIUM CHLORIDE 0.9% INJ 100 ML IV ONE (21:00)
--- NOTE | 2017-06-24 21:04 | MB ---
cc: HAIR ABDI MD DATE OF CONSULTATION 06/24/2017 REASON FOR CONSULTATION Acute kidney injury with elevated BUN and creatinine. HISTORY OF PRESENT ILLNESS This is a 72-year-old female with past medical history of rheumatoid arthritis, chronic kidney disease, degenerative disk disease, history of gout was admitted with generalized weakness and diarrhea for the last 5 days. I was called to see the patient because of elevated BUN and creatinine. According to the family the patient has history of chronic kidney disease. Her creatinine was 1.5 on June 12 which is almost 2 weeks ago and now she came here with hypotension and respiratory failure and she is on the ventilator. Her blood pressure was as low as 59/43 at some point on admission and now she is on pressors. She was diagnosed with lactic acidosis and seen by the surgery for ischemic colitis. The patient has history of hypotension at home according to the and she has history of gout and chronic back pain with degenerative disc disease and she was taking indomethacin and Advil and according to the she was told when she was up [place] in [place] that she has chronic kidney disease because of pain medication and she was afraid to take [id number] pain medication since then. This was 3 months ago. Here in the hospital it was found that the patient was hypotensive. She was lethargic and complaining of abdominal pain and hypotension. She was started on pressors and her C difficile was positive. The patient has decreased urine output since morning. She still has been on pressors. She was seen by the general surgery and was offered colectomy and possibly ileostomy. PAST MEDICAL HISTORY 1. Chronic kidney disease. 2. Rheumatoid arthritis. 3. Chronic back pain. 4. History of gout. PAST SURGICAL HISTORY 1. Carpal tunnel surgery. 2. Cataract surgery. 3. Teeth extraction. REVIEW OF SYSTEMS Cannot be taken since the patient is intubated and she is minimally responsive. SOCIAL HISTORY The patient is . There is no history of smoking or alcoholism. FAMILY HISTORY Noncontributory. ALLERGIES She has no known drug allergies. MEDICATIONS Currently she is on: 1. Pantoprazole infusion. 2. IV fluid with sodium bicarbonate at 75 an hour. 3. Vasopressin. 4. Dificid 200 mg b.i.d. 5. Protonix infusion. 6. Zosyn 2.25 grams IV q. 6-hour. 7. Vancomycin p.o. q. 6-hour 500 mg. 8. Metronidazole 500 mg IV q. 8-hour. 9. Solu-Cortef 100 mg q. 8-hour. 10. Vancomycin 500 mg q.i.d. 11. Zofran as needed. 12. DuoNeb as needed. PHYSICAL EXAMINATION GENERAL: On examination the patient is intubated. She is minimally responsive. Has been on pressors. Her last blood pressure is 117/65. Temperature is 99.3 with a temperature max of ____.7. HEENT: Pupils are mid constricted. Nonicteric sclera, conjunctiva pale. NECK: Supple. JVD is not elevated. LUNGS: The patient has bilateral decreased air entry with scattered wheezing. HEART: S1-S2. Regular rhythm. ABDOMEN: Distended, soft, lax. Bowel sounds decreased. EXTREMITIES: She has mild edema in both hips. Lower legs are cold and feet are pale. LABORATORY DATA Investigations, WBC count 18.1, hemoglobin 11.2, platelet count of 374, neutrophils 96%. Sodium 144, potassium 4.4, chloride 112, bicarb 13.3, BUN 46, creatinine 3.3. Lactic acid is 5.5, glucose 166. Calcium is 6.8. Corrected calcium 8.0. AST is 2008, ALT is 1058. Alkaline phosphatase 124. Total protein is 4.8. Albumin is 1.6. INR is 1.6. Urinalysis showing protein of 30. Hepatitis serology is negative. C-difficile toxicology by PCR is positive. Cultures are all negative. IMAGING STUDIES The patient has CT scan of the abdomen and pelvis done without IV contrast and it shows thickening of the colon with pericolonic stranding most likely colitis. No obstruction or free fluid. Abdominal x-ray was done which shows no evidence of obstruction. Chest x-ray was done which shows cardiomegaly and congestive heart failure. ASSESSMENT/PLAN 1. Hypotension and shock status. 2. Chronic kidney disease with acute kidney injury. 3. Severe metabolic and lactic acidosis. 4. Acute liver failure. 5. C-difficile colitis. 6. Possible ischemic colitis. 7. Respiratory failure. The patient has been hypotensive and developed acute kidney injury on top of her chronic kidney disease and the urine output is very minimal right now. The patient was seen by the surgery. She possibly is going to the OR for colectomy and colostomy. I did discuss with the and daughter who were present at the bedside and discussed with them in detail about the possibility of hemodialysis if her renal function does not improve. At present she is getting IV fluids with sodium bicarbonate, to continue that and if things do not improve she will need dialysis, possibility of CRRT versus conventional dialysis depending on her clinical status. Thank you for the consultation and I will follow the patient while she is in the hospital. MD IKER Reed/KK /5:45 PM /7:57 PM
[2017-06-24 21:53] LABS: BLOOD GAS BASE EXCESS -21.8 mmol/L (-2-2); BLOOD GAS CARBOXYHEMOGLOBIN 0.2 % (0-4); BLOOD GAS HCO3 5 mmol/L (22-26); BLOOD GAS O2 HGB SATURATION 93 % (90-100); BLOOD GAS OXYGEN CONTENT 14.8 Vol % (12.0-20.0); BLOOD GAS PCO2 13 mmHg (38-42); BLOOD GAS PO2 98 mmHg (61-120); BLOOD GAS TOTAL HGB 11.2 G/DL (12.0-16.0); TEMP CORR TO 98.6
[2017-06-24 21:54] LABS: CRITICAL VALUE YES; OXYGEN DEVICE VENT
[2017-06-24 21:55] LABS: DRAW SITE ART LINE; FIO2 40 %; STAT NO; ULNAR PULSE PRESENT; VENT SETTINGS SEE COMMENTS
[2017-06-24] MEDS ORDERED: SODIUM BICARBONATE 8.4% SOLN 50 MEQ/50 ML VIAL IV ONE (23:00)
[2017-06-25] VITALS (7 sets, daily range): BP systolic 96–105; BP diastolic 64–67; PULSE 94–124; RESP 25–27; TEMP 95.7–97.2; O2SAT 92–93
[2017-06-25] MEDS: VANCOMYCIN INJ 500 MG in SODIUM CHLORIDE 0.9% IRR BTL 250 ML IRRIGATION SCH ×2 (00:52→06:18)
[2017-06-25] MEDS: VASOPRESSIN INJ 40 UNITS in DEXTROSE 5% IN WATER 100ML INJ 98 ML IV SCH ×2 (02:12)
[2017-06-25] MEDS: PIPERACIL-TAZO 2.25 GM PREMIX 50 ML IV SCH ×2 (03:49→09:54)
[2017-06-25] MEDS: ALBUMIN HUMAN 5% 25 GM/500 ML BOTTLE IV SCH ×2 (03:49→09:00)
[2017-06-25] MEDS: CHLORHEXIDINE GLUCONATE 2 % 1 PACK (2 CLOTHS) TOP SCH (03:50)
[2017-06-25] MEDS: metroNIDAZOLE 500 MG INJ 100 ML IV SCH (03:50)
[2017-06-25] MEDS: SODIUM BICARBONATE 8.4% INJ 150 MEQ in DEXTROSE 5% IN WATE 1000ML INJ 1,000 ML IV SCH ×2 (04:50)
[2017-06-25 05:57] LABS: HEMATOCRIT 26.5 % (35.0-46.0); MEAN CELL VOLUME 92.9 FL (80.0-100.0); MEAN CORPUSCULAR HEMOGLOBIN 31.6 PG (27.0-34.0); PLATELET COUNT 168 TH/MM3 (150-450); RED BLOOD COUNT 2.85 MIL/MM3 (4.00-5.30); RED CELL DISTRIBUTION WIDTH 15.3 % (11.6-17.2); WHITE BLOOD COUNT 16.5 TH/MM3 (4.0-11.0)
[2017-06-25 06:09] LABS: BLOOD GAS BASE EXCESS -18.4 mmol/L (-2-2); BLOOD GAS CARBOXYHEMOGLOBIN 0.5 % (0-4); BLOOD GAS HCO3 7 mmol/L (22-26); BLOOD GAS O2 HGB SATURATION 95 % (90-100); BLOOD GAS OXYGEN CONTENT 13.9 Vol % (12.0-20.0); BLOOD GAS PCO2 13 mmHg (38-42); BLOOD GAS PO2 111 mmHg (61-120); BLOOD GAS TOTAL HGB 10.2 G/DL (12.0-16.0); TEMP CORR TO 98.6
[2017-06-25 06:12] LABS: CRITICAL VALUE YES; DRAW SITE ART LINE; FIO2 40 %; OXYGEN DEVICE VENT; STAT NO; ULNAR PULSE PRESENT; VENT SETTINGS SEE COMMENTS
[2017-06-25] MEDS: HYDROCORTISONE SOD SUCCINATE 100 MG VIAL IV PUSH SCH (06:18)
[2017-06-25] MEDS: SODIUM CHLOR 0.9% 1000 ML INJ 1,000 ML IV SCH ×2 (06:18→09:57)
[2017-06-25 06:21] LABS: APTT (PATIENT) 54.4 SEC (24.3-30.1); INTERNATIONAL NORMALIZED RATIO 2.1 RATIO; PROTHROMBIN TIME - PATIENT 24.2 SEC (9.8-11.6)
[2017-06-25 06:33] LABS: BICARBONATE 9.2 MEQ/L (21.0-32.0); POTASSIUM 4.1 MEQ/L (3.5-5.1)
[2017-06-25 06:38] LABS: HEMO FLAGS AUTO DIFF
[2017-06-25 07:14] LABS: TOTAL BILIRUBIN ADULT 1.2 MG/DL (0.2-1.0)
[2017-06-25 07:38] LABS: CALCIUM-PROTEIN CORRECTED 7.1 MG/DL (8.5-10.1)
[2017-06-25] MEDS: CHLORHEXIDINE 0.12% (ORAL KIT) 15 ML CUP MT SCH (08:00)
[2017-06-25] MEDS: VANCOMYCIN 500 MG VIAL (FOR ORAL USE ONLY) PO SCH (09:00)
[2017-06-25] MEDS: DOCUSATE SODIUM 50 MG/SENNA 8.6 MG TAB PO SCH (09:00)
[2017-06-25] MEDS: SODIUM CHLORIDE 0.9% FLUSH 10 ML FLUSH IV FLUSH SCH (09:00)
[2017-06-25] MEDS: PANTOPRAZOLE INJ 80 MG in SODIUM CHLORIDE 0.9% INJ 100 ML IV SCH ×2 (09:15→09:57)
--- NOTE | 2017-06-25 09:38 | HHI.GIFU ---
Subjective Remarks Sedated on vent, breathing mildly labored on vent. Hypotensive on vasopressors. Nurse reports that they are not able to get distal pulses. (Leonora Leonard) Objective Vitals I&O Vital Signs Date Time Temp Pulse Resp B/P (MAP) Pulse Ox O2 Delivery O2 Flow Rate FiO2 06/25/17 09:13 92 40 06/25/17 07:00 Mechanical Ventilator 40 06/25/17 06:00 124 06/25/17 04:00 40 06/25/17 04:00 97.2 94 27 105/64 (78) 96/67 (77) 06/25/17 04:00 94 06/25/17 02:15 93 40 06/25/17 02:12 98 95/62 06/25/17 02:00 98 06/25/17 00:00 120 06/25/17 00:00 95.7 120 25 96/67 (77) 06/25/17 00:00 40 06/24/17 23:00 117 106/70 06/24/17 22:01 93 40 06/24/17 22:00 99 06/24/17 21:30 116 120/74 06/24/17 20:35 136 120/76 06/24/17 20:00 136 06/24/17 20:00 97.8 136 25 120/76 (91) 06/24/17 20:00 40 06/24/17 19:00 Mechanical Ventilator 40 06/24/17 18:00 106 06/24/17 16:00 112 06/24/17 16:00 98.2 112 29 118/76 (90) 100 06/24/17 16:00 40 06/24/17 15:34 95 40 06/24/17 14:00 106 06/24/17 12:42 117 117/65 06/24/17 12:41 117 121/70 06/24/17 12:26 100 40 06/24/17 12:00 40 06/24/17 12:00 120 06/24/17 12:00 99.1 120 18 132/72 (92) 100 06/24/17 10:00 112 I/O 06/24/17 06/24/17 06/24/17 06/25/17 06/25/17 06/25/17 07:00 15:00 23:00 07:00 15:00 23:00 Intake Total 5180 ml 1553 ml Output Total 50 ml 5 ml 5 ml Balance -50 ml 5175 ml 1548 ml Intake Oral 3210 ml IV Total 1970 ml 1553 ml Output Urine Total 50 ml 5 ml 5 ml Stool Total 0 ml # Bowel Movements 1 1 Laboratory Laboratory Tests Test 06/24/17 09:45 06/24/17 10:30 06/24/17 11:30 06/24/17 21:35 Blood Gas Puncture Site ART LINE ART LINE Blood Gas Patient Temperature 98.6 98.6 Blood Gas HCO3 10 5 Blood Gas Base Excess -14.5 -21.8 Blood Gas Oxygen Saturation 97 93 Arterial Blood pH 7.36 7.21 Arterial Blood Partial Pressure CO2 18 13 Arterial Blood Partial Pressure O2 142 98 Arterial Blood Oxygen Content 15.5 14.8 Arterial Blood Carboxyhemoglobin 0.5 0.2 Arterial Blood Methemoglobin 1.1 1.0 Blood Gas Hemoglobin 11.2 11.2 Oxygen Delivery Device VENTILATOR VENT Blood Gas Ventilator Setting PRVC/AC SEE COMMENTS Blood Gas Inspired Oxygen 40 40 Prothrombin Time 18.4 Prothromb Time International Ratio 1.6 Lactic Acid Level 5.5 Hepatitis A IgM Antibody NEGATIVE Hepatitis B Surface Antigen NEGATIVE Hepatitis B Core IgM Antibody NEGATIVE Hepatitis C Antibody NEGATIVE Test 06/25/17 01:38 06/25/17 05:45 06/25/17 05:52 Lactic Acid Level 12.7 12.9 White Blood Count 16.5 Red Blood Count 2.85 Hemoglobin 9.0 Hematocrit 26.5 Mean Corpuscular Volume 92.9 Mean Corpuscular Hemoglobin 31.6 Mean Corpuscular Hemoglobin Concent 34.0 Red Cell Distribution Width 15.3 Platelet Count 168 Mean Platelet Volume 7.4 CBC Comment AUTO DIFF Prothrombin Time 24.2 Prothromb Time International Ratio 2.1 Activated Partial Thromboplast Time 54.4 Blood Urea Nitrogen 51 Creatinine 3.63 Random Glucose 270 Total Protein 4.9 Albumin 2.6 Calcium Level 6.0 Alkaline Phosphatase 89 Aspartate Amino Transf (AST/SGOT) 4320 Alanine Aminotransferase (ALT/SGPT) 2087 Total Bilirubin 1.2 Direct Bilirubin 0.8 Sodium Level 143 Potassium Level 4.1 Chloride Level 109 Carbon Dioxide Level 9.2 Anion Gap 25 Estimat Glomerular Filtration Rate 12 Protein Corrected Calcium 7.1 Blood Gas Puncture Site ART LINE Blood Gas Patient Temperature 98.6 Blood Gas HCO3 7 Blood Gas Base Excess -18.4 Blood Gas Oxygen Saturation 95 Arterial Blood pH 7.34 Arterial Blood Partial Pressure CO2 13 Arterial Blood Partial Pressure O2 111 Arterial Blood Oxygen Content 13.9 Arterial Blood Carboxyhemoglobin 0.5 Arterial Blood Methemoglobin 1.0 Blood Gas Hemoglobin 10.2 Oxygen Delivery Device VENT Blood Gas Ventilator Setting SEE COMMENTS Blood Gas Inspired Oxygen 40 Date/Time Source Procedure Growth Status 06/23/17 03:42 Blood Peripheral Aerobic Blood Culture - Preliminary NO GROWTH IN 1 DAY Resulted 06/23/17 03:42 Blood Peripheral Anaerobic Blood Culture - Preliminary NO GROWTH IN 1 DAY Resulted 06/22/17 23:59 Urine Catheterized Urine Urine Culture - Final NO GROWTH IN 48 HOURS. Complete Imaging Last Impressions Chest X-Ray 06/24/17 0000 Signed Impressions: Service Date/Time: Saturday, June 24, 2017 10:10 - CONCLUSION: 1. Cardiomegaly and findings of congestive heart failure. The findings have improved when compared with the prior exam. 2. Nasogastric tube as above this could be advanced 5-10 cm Fawad Isaacs MD Abdomen X-Ray 06/24/17 0000 Signed Impressions: Service Date/Time: Saturday, June 24, 2017 10:16 - CONCLUSION: 1. No evidence of obstruction. Fawad Isaacs MD Abdomen/Pelvis CT 06/22/17 0000 Signed Impressions: Service Date/Time: Thursday, June 22, 2017 22:49 - CONCLUSION: 1. Mild mural thickening of the colon with mild pericolonic fat stranding most characteristic of a colitis. No obstruction, free fluid or free air. Danny Johns MD Physical Exam HEENT: Normocephalic; atraumatic. Small amount of bloody secretions from oral cavity CHEST: Resp. mildly labored, clear, bases diminished, oett to vent. CARDIAC: RRR. ABDOMEN: Soft, mildly distended. EXTREMITIES: Generalized edema,. SKIN: Skin cool, moist NETWORK ENGINEER: Sedated on vent (Leonora Leonard) Assessment and Plan Plan ASSESSMENT: - Severe CDifficile colitis. Epid 027 (+). CT Scan abdomen and pelvis (06/22/17 )----> Mild mural thickening of the colon with pericolonic fat stranding most characteristic of a colitis. No obstruction, free fluid or free air. No documented hx of CDiff in EMR. Was recently hospitalized for possible septic joint, was treated with broad-spectrum abx. S/P joint aspiration, cx negative, was taken off abx, thought to be pseudogout. ID following. On IV Flagyl, Oral vancomycin, vanco enemas, dificid. S/P CRS evaluation, no plans for surgery - would not survive. WBC 16.5. Pt with worsening septic shock. Likely with some component of ischemic colitis on top of Cdiff. S/P CRS evaluation , not a candidate for surgery. Poor prognosis, recommend comfort measures. - Severe Sepsis, Bandemia, leukocytosis. WBC 16.5, Abx per ID. - Worsening Shocked liver/Elevated LFTs. Noted to have normal LFTs 06/13. On this admission, she was noted to have T. Bili 1.1, AST 100, ALT 67, Alk PHosph 103. These increased significantly 06/24 and are worsening. LFT now with T. Bili 1.2, AST 4320, ALT 2087, Alk Phosph 89. She is on vasopressors. She was recently started on indomethacin. Looks like she is now going into liver failure secondary to shocked liver, worsening coag's. - Worsening Coagulopathy. PT 24.2, INR 2.1. - Worsening Acute kidney injury. Creat 3.63 - Anemia. 9.0/26.5. No obvious blood loss. - Acute respiratory failure. Intubated on 05/24, vent per CCM - RA, DDD, per attending. Per attending. PLAN: - NPO - Cont. Oral Vanco, Vanco enemas, Flagyl per ID recommendations - Monitor labs - Avoid hepatotoxic medications - Avoid hypotension - S/P CRS evaluation, not a candidate for surgery - Poor prognosis, recommend hospice care - Further recommendations to follow based on results of above - Pt seen and examined by Dr. Jo and myself and this note is written on her behalf (Leonora Leonard) Physician Comments seen, examined agree with above very poor prognosis not much from gi to offer, colorectal on the case call us as needed gi will sign off (Tricia Jo MD) Leonora Leonard Jun 25, 2017 09:38 Tricia Jo MD Jun 25, 2017 15:51
[2017-06-25 09:48] LABS: BANDS 15 % (0-6); CORRECTED NUCLEATED RBC 2 /100 WBC (0-0); MYELOCYTES 1 % (0-0); NEUTROPHIL # MANUAL DIFF 13.9 TH/MM3 (1.8-7.7); POLYS (SEG NEUTROPHILS) 68 % (16-70); WBC DIFF SAMPLE 100
[2017-06-25 09:49] LABS: BURR CELLS 1+ (NORMAL); PLATELET ESTIMATE SMEAR NORMAL (NORMAL); PLATELET MORPHOLOGY NORMAL (NORMAL)
[2017-06-25 09:51] LABS: OVALOCYTES 1+ (NORMAL); SCAN/DIFF FINAL DIFF MANUAL
[2017-06-25 09:52] LABS: ACANTHOCYTES 1+ (NORMAL)
[2017-06-25] MEDS: FIDAXOMICIN 200 MG TAB PO SCH (09:52)
[2017-06-25] MEDS: PANTOPRAZOLE SODIUM 40 MG VIAL IV PUSH SCH (09:54)
--- NOTE | 2017-06-25 11:53 | HHI.NPPN ---
Subjective History of Present Illness 72-year-old female with past medical history of rheumatoid arthritis, chronic kidney disease, degenerative disk disease, history of gout was admitted with generalized weakness and diarrhea for the last 5 days. I was called to see the patient because of elevated BUN and creatinine. According to the family the patient has history of chronic kidney disease. Her creatinine was 1.5 on June 12. Additional Remarks Patient is on the vent. and remain unresponsive. Objective Data Data Vital Signs Date Time Temp Pulse Resp B/P (MAP) Pulse Ox O2 Delivery O2 Flow Rate FiO2 06/25/17 09:13 92 40 06/25/17 07:00 Mechanical Ventilator 40 06/25/17 06:00 124 06/25/17 04:00 40 06/25/17 04:00 97.2 94 27 105/64 (78) 96/67 (77) 06/25/17 04:00 94 06/25/17 02:15 93 40 06/25/17 02:12 98 95/62 06/25/17 02:00 98 06/25/17 00:00 120 06/25/17 00:00 95.7 120 25 96/67 (77) 06/25/17 00:00 40 06/24/17 23:00 117 106/70 06/24/17 22:01 93 40 06/24/17 22:00 99 06/24/17 21:30 116 120/74 06/24/17 20:35 136 120/76 06/24/17 20:00 136 06/24/17 20:00 97.8 136 25 120/76 (91) 06/24/17 20:00 40 06/24/17 19:00 Mechanical Ventilator 40 06/24/17 18:00 106 06/24/17 16:00 112 06/24/17 16:00 98.2 112 29 118/76 (90) 100 06/24/17 16:00 40 06/24/17 15:34 95 40 06/24/17 14:00 106 06/24/17 12:42 117 117/65 06/24/17 12:41 117 121/70 06/24/17 12:26 100 40 06/24/17 12:00 40 06/24/17 12:00 120 06/24/17 12:00 99.1 120 18 132/72 (92) 100 -: 06/25/17 0545 06/25/17 0545 Physical Exam General Appearance Remarks On the vent. and unresponsive. Eyes Eye Exam: Pupils Equal Throat Throat Exam: Oral Mucosa [place] & Moist Neck Neck Exam: Neck Supple Pulmonary Resp Exam: Rhonchi, Decreased Bases, Diminished Breath Sounds, Poor Inspiratory Effort Cardiology CV Exam: Regular, Normal Sinus Rhythm Gastrointestinal/Abdomen GI Exam: Soft, Distended Extremeties Extremities Exam: Moderate Edema, Pitting Edema, Dependent Edema Neurologic Neuro Exam: Unresponsive Assessment/Plan Assessment Summary: WILDA/Acute Renal Failure, Hypotension Electrolyte Assessment: Metabolic Acidosis Problem List: (1) Osteoarthritis of hand, left ICD Codes: M19.042 - Primary osteoarthritis, left hand (2) Rheumatoid arthritis ICD Codes: M06.9 - Rheumatoid arthritis, unspecified Status: Chronic (3) Diarrhea in adult patient ICD Codes: R19.7 - Diarrhea, unspecified; N18.9 - Chronic kidney disease, unspecified Status: Acute (4) Septic shock ICD Codes: A41.9 - Sepsis, unspecified organism; R65.21 - Severe sepsis with septic shock Status: Acute (5) Lactic acid acidosis ICD Codes: E87.2 - Acidosis Status: Acute (6) Acute on chronic kidney failure ICD Codes: N17.9 - Acute kidney failure, unspecified; N18.9 - Chronic kidney disease, unspecified Status: Acute Plan Patient has minimal urine out put. BUN and Creatinine increasing. Has metabolic acidosis, and Hypotension. Remain on pressors. Family decided no surgery and for possible with drawl. Discussed with the and daughter at bed side. I will sign off from Nephrology. Problem Qualifiers (1) Acute on chronic kidney failure: Qualified Codes: N17.9 - Acute kidney failure, unspecified; N18.9 - Chronic kidney disease, unspecified Kaity David MD Jun 25, 2017 11:53
[2017-06-25] MEDS ORDERED: HYOSCYAMINE 0.5 MG/ML AMP IV ONE (13:00)
[2017-06-25] MEDS ORDERED: LORazepam 2 MG/ML VIAL IV ONE ×2 (13:00→15:45)
[2017-06-25] MEDS ORDERED: MORPHINE SULFATE 8 MG/ML INJ IV PUSH ONE (13:00)
[2017-06-25] MEDS ORDERED: ACETAMINOPHEN 650 MG SUPP RECTAL PRN (15:45)
[2017-06-25] MEDS ORDERED: HYOSCYAMINE 0.5 MG/ML AMP IV PRN (15:45)
[2017-06-25] MEDS ORDERED: MORPHINE SULFATE 4 MG/ML INJ IV ONE (15:45)
[2017-06-25] MEDS ORDERED: ATROPINE SULFATE 1% OPHT SOLN 2 ML BTL SL PRN (19:45)
[2017-06-25] MEDS: MORPHINE SULFATE 4 MG/ML INJ IV PRN ×2 (19:53→20:08)
[2017-06-25] MEDS: LORazepam 2 MG/ML VIAL IV PRN ×2 (19:54→20:08)
--- NOTE | 2017-06-25 20:08 | HHI.CCPN ---
Subjective Remarks/Hospital Course 72-year-old female presents for evaluation of generalized weakness and diarrhea for the past 5 days. Today she became more confused and she has been unable to ambulate without assistance. She feels dizzy and lightheaded. She has abdominal discomfort. She denies any chest pain or shortness of breath. She has been having watery diarrhea for loss 5 days. She was released from the hospital on the 14 of June after treatment of pseudogout. She was admitted secondary to possible septic joint which she was not found to have this. She complains on severe abdominal pain and admits that her stool is usually liquidly but no blood or melena. She was started on indomethacin for treatment of pseudogout. Per she's been more confused today. Confusion and weakness started about 3 days ago. The CAT scan of the abdomen performed in the emergency department confirmed bowel wall thickening consistent with colitis and her stool is positive for C. difficile. SUBJ 06/24/17: Critically ill confused, hypotensive on 2 mcg/m of Levophed. Oliguric urine output only 60 ML in last 4 hours. Patient is AO 1 and somnolent. Stat ABG showed a pH of 7.2, PCO2 of 26 PO2 of 86 with a base excess of -17. Due to severe metabolic acidosis and worsening mentation, patient will be intubated and placed on mechanical ventilation 06/24: clinically worse. on 2 vasopressors, added vasopressin to levophed which is now at 10 mcg/min. shock liver, anuric kidney injury, lactate rising despite CVP 15 and adequate resuscitation. discussed case with Dr. Lowe, adding vanc enemas. stat consult placed to colorectal surgery for possible emergent colectomy, as she is failing non-operative management for refractory colitis. discussed again with dr. lowe and no other sources of infection can be identified. 06/25: continues to decline clinically. Colorectal surgery evaluated the patient and felt that her mortality risk was too high for emergent colectomy. Today lactate of 12. All the organs are worse. I long discussion with the family, and they do not think that she would want artificial life support as she has right now. We'll plan to transition to comfort measures and withdraw life support. Objective Vital Signs Date Time Temp Pulse Resp B/P (MAP) Pulse Ox O2 Delivery O2 Flow Rate FiO2 06/25/17 12:00 40 06/25/17 09:13 92 06/25/17 07:00 Mechanical Ventilator 06/25/17 06:00 124 06/25/17 04:00 97.2 27 105/64 (78) 96/67 (77) 06/23/17 09:17 3.00 Intake and Output 06/25/17 06/25/17 06/25/17 07:59 15:59 23:59 Intake Total 1333 ml Output Total 5 ml Balance 1328 ml Result Diagram: 06/25/17 0545 06/25/17 0545 Other Results Microbiology Date/Time Source Procedure Growth Status 06/22/17 23:59 Urine Catheterized Urine Urine Culture - Final NO GROWTH IN 48 HOURS. Complete Laboratory Tests Test 06/24/17 21:35 06/25/17 05:52 Blood Gas Puncture Site ART LINE ART LINE Blood Gas Patient Temperature 98.6 98.6 Blood Gas HCO3 5 mmol/L (22-26) 7 mmol/L (22-26) Blood Gas Base Excess -21.8 mmol/L (-2-2) -18.4 mmol/L (-2-2) Blood Gas Oxygen Saturation 93 % (90-100) 95 % (90-100) Arterial Blood pH 7.21 (7.380-7.420) 7.34 (7.380-7.420) Arterial Blood Partial Pressure CO2 13 mmHg (38-42) 13 mmHg (38-42) Arterial Blood Partial Pressure O2 98 mmHg (61-120) 111 mmHg (61-120) Arterial Blood Oxygen Content 14.8 Vol % (12.0-20.0) 13.9 Vol % (12.0-20.0) Arterial Blood Carboxyhemoglobin 0.2 % (0-4) 0.5 % (0-4) Arterial Blood Methemoglobin 1.0 % (0-2) 1.0 % (0-2) Blood Gas Hemoglobin 11.2 G/DL (12.0-16.0) 10.2 G/DL (12.0-16.0) Oxygen Delivery Device VENT VENT Blood Gas Ventilator Setting SEE COMMENTS SEE COMMENTS Blood Gas Inspired Oxygen 40 % 40 % Objective Remarks GENERAL: Elderly female in distress, critically ill, intubated SKIN: Warm and dry. HEAD: Normocephalic. EYES: No scleral icterus. No injection or drainage. NECK: trachea midline. No JVD CARDIOVASCULAR: Tachycardic rate and rhythm Hypotensive on Levophed and vasopressin RESPIRATORY: intubated, fio2 50%. equal chest rise. GASTROINTESTINAL: Abdomen soft, tender diffusely and mildly distended MUSCULOSKELETAL: No cyanosis, or edema. NEURO EXAM: RASS -4. currently off sedation. w/d weakly. does not follow commands. A/P Assessment and Plan Assessment: 72yF with fulminant c-difficile colitis and refractory septic shock and multiorgan failure clinically decompensating. She continues to decline. at this point without surgical source control and with prohibitively high operative risk, this is almost certainly a fatal event for her. Her family expresses that she had clear goals of care and did not want to be on life- support, including a prior DNR. Congruent with her wishes, we will pursue palliative withdraw of care. Neuro: Acute metabolic encephalopathy- worsening. - versed for goal RASS -2. . - When necessary fentanyl if needed CVS: Septic shock- refractory and worsening. Sinus Tachycardia Lactic acidosis- worsening. - pulse contour analysis connected, and SVV < 10. volume replete. remains in shock. - add vasopressin - continue levophed for map goal > 65mmHg. - trend lactates. currently still uptrending. RESP Acute hypoxic and hypercarbic respiratory failure Severe metabolic acidosis - Intubated for severe metabolic acidosis and respiratory failure, encephalopathy - Assist-control mechanical ventilation, ventilator bundle - DuoNeb every 6 hours scheduled and when necessary - No ventilator weaning until septic shock is improved GI/ID Septic shock Severe C. difficile colitis - Clinically patient has severe C. difficile colitis - 027 positive - Continue By mouth vancomycin, and IV Flagyl - add vanc enemas - stat colorectal surgery consultation. - ID following. : Acute kidney injury- now anuric. - Dehydration, continue aggressive IV resuscitation - Strict I's and O's - Monitor trend of electrolytes and creatinine - will re-eval after possible surgery. no emergent indication for IHD, but may require HD soon if no improvement. MSK: Pseudogout/rheumatoid arthritis Relative Adrenal Insufficiency - Home dose of Prednisone 10 mg daily-hold - hydrocortisone 100 mg IV every 8 hours ENDO: - Electrolyte replacement per protocol DVT GI prophylaxis - JACQUELIN/SCDs - Subcutaneous heparin - Pantoprazole IV twice a day - questionable gastritis due to indomethacin Overall Impression: actively dying, unable to salvage. will transition to comfort. Greenberg,Joaquín S MD Jun 25, 2017 20:08
== END 2017-06-25 20:18 | disposition expired | DRG 871 ==
LOC: NEPC 20:18 → NEDA 22:38 → N03A 06-23 01:34
PROVIDERS: ADMIT Internal Medicine Critical Care Medicine; ATTEND Internal Medicine Critical Care Medicine
PROC: 0T9B70Z Drainage of Bladder with Drainage Device, Via Natural or Artificial Opening (ICD-10-PCS; principal; 2017-06-22)
PROC: 5A1945Z Respiratory Ventilation, 24-96 Consecutive Hours (ICD-10-PCS; 2017-06-23)
PROC: 0BH17EZ Insertion of Endotracheal Airway into Trachea, Via Natural or Artificial Opening (ICD-10-PCS; 2017-06-23)
DX: A41.9 Sepsis, unspecified organism (principal); R65.21 Severe sepsis with septic shock; K72.00 Acute and subacute hepatic failure without coma; N17.9 Acute kidney failure, unspecified; G93.41 Metabolic encephalopathy; K55.9 Vascular disorder of intestine, unspecified; J96.01 Acute respiratory failure with hypoxia; J96.02 Acute respiratory failure with hypercapnia; N18.3 Chronic kidney disease, stage 3 (moderate); A04.72 Enterocolitis due to Clostridium difficile, not specified as recurrent; E87.2 Acidosis; E27.40 Unspecified adrenocortical insufficiency; M19.042 Primary osteoarthritis, left hand; M06.9 Rheumatoid arthritis, unspecified; M10.9 Gout, unspecified; I50.9 Heart failure, unspecified; E78.00 Pure hypercholesterolemia, unspecified; H91.90 Unspecified hearing loss, unspecified ear; M48.00 Spinal stenosis, site unspecified; E86.0 Dehydration; D64.9 Anemia, unspecified; M54.9 Dorsalgia, unspecified; G89.29 Other chronic pain; R00.0 Tachycardia, unspecified
CPT/HCPCS: 31500; 36415; 36430; 36556; 36600; 51702; 71010; 74000; 74176; 80048; 80053; 80074; 81001; 82248; 82805; 83605; 83690; 83735; 84100; 85007; 85027; 85610; 85730; 86850; 86900; 86901; 86920; 87040; 87086; 87493; 87641; 93005; 94003; 96365; 96375; C9113; J0610; J1720; J2060; J2250; J2270; J2543; J3370; J3475; J7030; J7050; J7070; J7512; P9016; P9045; P9047